=== PATIENT | female | born 1950 | race Caucasian/White ===

== ENCOUNTER 2016-09-22 14:54 | Inpatient (IN) | payer OTHER, MEDICAID, MEDICARE ==
[~2016-09-22] VITALS: Ht 165.1 cm; Wt 66.0 kg
[~2016-09-22 14:54] MED LIST: ADVA500A INH; ATEN50TA PO; BENT20TA PO; BUME1TAB PO; BUPR100T4 PO; CALTTAB PO; DIGO0.12 PO; HYDR-3366 PO; HYDR-3533 PO; LORA-373 PO; METR-1 PO; POTA-163 PO; PROT40TA PO; SPIR25TA PO; SPIRCAP INH; VENTAER INH; ZOFR4TAB PO
[2016-09-22 15:12] VITALS: BP 149/78; PULSE 68; RESP 17; TEMP 98.6; O2SAT 98
[2016-09-22 16:13] VITALS: BP 187/94; PULSE 72; RESP 18; O2SAT 100
[2016-09-22] MEDS ORDERED: ONDANSETRON HCL 4 MG/2 ML VIAL IVP ONE (16:15)
[2016-09-22] MEDS ORDERED: HYDROmorphone HCL PF 1 MG/ML VIAL IVS ONE (16:15)
--- NOTE | 2016-09-22 16:49 | PD ---
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 The patient status post cardiac procedure done at [facility] 2 days ago. The patient states that she had a device placed on the left atrium to help with clot formation from her irregular heart rate. She denies any chest pain, chest pressure. She reports worsening pain and swelling to her left groin area. There are no other complaints at the time of my examination. PFSH Past Medical History Hx Anticoagulant Therapy: Yes Anemia: Yes Arthritis: Yes (RHEUMATOID) Asthma: Yes Atrial Fibrillation: Yes Autoimmune Disease: Yes Blood Disorders: Yes Anxiety: Yes Depression: Yes Heart Rhythm Problems: Yes Cancer: Yes (OMENTUM) Cardiac Catheterization: Yes (2006) Cardiovascular Problems: Yes High Cholesterol: No Chemotherapy: Yes (05/23) Chest Pain: Yes Congestive Heart Failure: Yes COPD: Yes Cerebrovascular Accident: No Coronary Artery Disease: No Diabetes: Yes Patient Takes Glucophage: No Diminished Hearing: No Endocrine: Yes Gastrointestinal Disorders: Yes (COLITIS ULCERATIVE, HEMORRHAGIC COLITIS) GERD: Yes Glaucoma: No Genitourinary: Yes Headaches: Yes Hepatitis: Yes (HEPATITIS C) Hiatal Hernia: Yes Hypertension: Yes Immune Disorder: Yes (RA, HEP C) Implanted Vascular Access Dvce: Yes (R UPPER CHEST ) Kidney Stones: Yes Musculoskeletal: Yes Neurologic: Yes Psychiatric: Yes Reproductive: Yes (HYSTERECTOMY) Respiratory: Yes Immunizations Current: No Migraines: Yes Myocardial Infarction: No Pneumonia: Yes Radiation Therapy: No Renal Failure: Yes Seizures: No Sickle Cell Disease: No Sleep Apnea: Yes Thyroid Disease: No Ulcer: Yes PNEUMOCCOCAL Vaccine (Year): 2007 ?: Not Menopausal: Yes : 2 Para: 2 Miscarriage: 0 : 0 Dilation and Curettage (D&C): Yes Past Surgical History Abdominal Surgery: Yes ( HERNIA REPAIR) AICD: No Appendectomy: No Arteriovenous Shunt: No Body Medical Devices: RIGHT SUBCLAVIAN PORT Cardiac Surgery: Yes (WATCHMAN IMPLANTED 2016) Cholecystectomy: Yes Ear Surgery: No Endocrine Surgery: No Eye Surgery: No Genitourinary Surgery: No Gynecologic Surgery: Yes (COLPOSCOPY; CRYO SURGERY) Hysterectomy: Yes (NOVEMBER 2014) Insulin Pump: No Joint Replacement: No Neurologic Surgery: No Oral Surgery: Yes (EXTRACTIONS) Pacemaker: No Thoracic Surgery: No Other Surgery: Yes Social History Alcohol Use: No Tobacco Use: No Substance Use: No Allergies-Medications (Allergen,Severity, Reaction): Coded Allergies: Augmentin (Verified Allergy, Severe, Ulcers, 09/22/16) Cat Dander (Verified Allergy, Severe, cough, itching, 09/22/16) Taxol (Verified Allergy, Severe, Headache, 09/22/16) N/V Zithromax (Verified Allergy, Severe, Hives, 09/22/16) Reported Meds & Prescriptions Reported Meds & Active Scripts Active Lortab (Hydrocodone-Acetaminophen) 5-325 Mg Tab 1-2 Tab PO Q6H PRN Flagyl (Metronidazole) 500 Mg Tab 500 Mg PO TID 7 Days Reported Spiriva Handihaler (Tiotropium Inh) 18 Mcg Cap 18 Mcg INH DAILY 1 capsule = 18 mcg Spironolactone 25 Mg Tab 25 Mg PO BIDPC Potassium Chloride ER (Potassium Chloride) 20 Meq Tab 20 Meq PO DAILY Protonix (Pantoprazole Sodium) 40 Mg Tab 40 Mg PO DAILY Zofran (Ondansetron HCl) 4 Mg Tab 4 Mg PO Q6HR PRN Lorazepam 0.5 Mg Tab 0.5 Mg PO Q6H PRN [place] (Hydrocodone-Acetaminophen) 10-325 Mg Tab 1 Tab PO Q6H PRN Digoxin 0.125 Mg Tab 0.125 Mg PO DAILY Bentyl (Dicyclomine HCl) 20 Mg Tab 20 Mg PO TID PRN Caltrate 600+D (Calcium Carbonate-Cholecalciferol) 600-800 Mg-Unit Tab 1 Tab PO BID Bupropion HCl 100 Mg Tab 100 Mg PO BID Bumetanide 1 Mg Tab 1 Mg PO BID Atenolol 50 Mg Tab 50 Mg PO DAILY Ventolin Hfa 18 GM Inh (Albuterol Sulfate) 90 Mcg/Act Aer 2 Puff INH Q4-6H PRN Advair Diskus Inh (Fluticasone-Salmeterol Inh) 500-50 Mcg/Blist Aer 1 Puff INH BID Rinse mouth after use. Review of Systems Except as stated in HPI: all other systems reviewed are Neg General / Constitutional: No: Fever, Chills HENT: No: Headaches, Lightheadedness, Neck Pain Cardiovascular: Positive: Irregular Rhythm, No: Chest Pain or Discomfort, Palpitations Respiratory: No: Cough, Shortness of Breath Gastrointestinal: No: Nausea, Vomiting, Abdominal Pain Musculoskeletal: Positive: Pain, No: Myalgias, Arthralgias, Weakness (left groin/inguinal pain and swelling) Neurologic: No: Weakness, Dizziness, Headache Physical Exam Narrative GENERAL: Well-nourished, well-developed patient, in no acute respiratory distress. SKIN: Focused skin assessment warm/dry. HEAD: Normocephalic/atraumatic. EYES: No scleral icterus. No injection or drainage. NECK: Supple, trachea midline. CARDIOVASCULAR: Rate in the 90s without murmurs gallops or rubs. RESPIRATORY: Breath sounds equal bilaterally. No accessory muscle use. GASTROINTESTINAL: Abdomen soft, non-tender, nondistended. MUSCULOSKELETAL: Tenderness to palpation in the left inguinal area. Mild tenderness in the right inguinal area. The patient has what appears to be a palpable thrill to her left inguinal catheter site. BACK: Nontender without obvious deformity. No CVA tenderness. NEUROLOGICAL: Awake and alert. Cranial nerves II through XII intact. Motor grossly within normal limits. Five out of 5 muscle strength in all muscle groups. Normal speech. Data Data Last Documented VS Vital Signs Date Time Temp Pulse Resp B/P Pulse Ox O2 Delivery O2 Flow Rate FiO2 09/22/16 17:13 72 16 181/86 97 Room Air 09/22/16 15:12 98.6 Orders Complete Blood Count With Diff (09/22/16 16:07) Basic Metabolic Panel (Bmp) (09/22/16 16:07) Urinalysis - C+S If Indicated (09/22/16 16:07) Iv Access Insert/Monitor (09/22/16 16:07) Ecg Monitoring (09/22/16 16:07) Oximetry (09/22/16 16:07) Ondansetron Inj (Zofran Inj) (09/22/16 16:15) Hydromorphone Pf Inj (Dilaudid Pf Inj) (09/22/16 16:15) Us Leg Hematoma/Pseudoan Bilat (09/22/16 ) Invasive Rad Dept Consult (09/22/16 ) Prothrombin Time / Inr (Pt) (09/23/16 06:00) Npo After Midnight W/ Po Meds (09/23/16 Breakfast) Labs Laboratory Tests Test 09/22/16 16:30 White Blood Count 10.2 TH/MM3 Red Blood Count 3.73 MIL/MM3 Hemoglobin 11.7 GM/DL Hematocrit 35.2 % Mean Corpuscular Volume 94.3 FL Mean Corpuscular Hemoglobin 31.4 PG Mean Corpuscular Hemoglobin 33.3 % Concent Red Cell Distribution Width 16.7 % Platelet Count 129 TH/MM3 Mean Platelet Volume 8.6 FL Neutrophils (%) (Auto) 66.4 % Lymphocytes (%) (Auto) 23.9 % Monocytes (%) (Auto) 6.6 % Eosinophils (%) (Auto) 2.3 % Basophils (%) (Auto) 0.8 % Neutrophils # (Auto) 6.8 TH/MM3 Lymphocytes # (Auto) 2.4 TH/MM3 Monocytes # (Auto) 0.7 TH/MM3 Eosinophils # (Auto) 0.2 TH/MM3 Basophils # (Auto) 0.1 TH/MM3 CBC Comment AUTO DIFF Differential Total Cells 100 Counted Neutrophils % (Manual) 69 % Lymphocytes % 22 % Monocytes % 7 % Eosinophils % 1 % Basophils % 1 % Neutrophils # (Manual) 7.0 TH/MM3 Differential Comment FINAL DIFF MANUAL Platelet Estimate LOW Platelet Morphology Comment NORMAL Spherocytes 1+ Ovalocytes 2+ Urine Color LIGHT-YELLOW Urine Turbidity CLEAR Urine pH 7.0 Urine Specific [place] 1.008 Urine Protein NEG mg/dL Urine Glucose (UA) NEG mg/dL Urine Ketones NEG mg/dL Urine Occult Blood NEG Urine Nitrite NEG Urine Bilirubin NEG Urine Urobilinogen LESS THAN 2.0 MG/DL Urine Leukocyte Esterase NEG Urine RBC LESS THAN 1 /hpf Urine WBC 1 /hpf Urine Squamous Epithelial <1 /hpf Cells Urine Hyaline Casts 1 /lpf Microscopic Urinalysis Comment CULT NOT INDICATED Sodium Level 141 MEQ/L Potassium Level 3.6 MEQ/L Chloride Level 100 MEQ/L Carbon Dioxide Level 32.4 MEQ/L Anion Gap 9 MEQ/L Blood Urea Nitrogen 31 MG/DL Creatinine 1.15 MG/DL Estimat Glomerular Filtration 47 ML/MIN Rate Random Glucose 118 MG/DL Calcium Level 8.6 MG/DL [facility] Medical Decision Making Medical Screen Exam Complete: Yes Emergency Medical Condition: Yes Differential Diagnosis Pseudoaneurysm versus hematoma versus postprocedure pain versus infection Narrative Course 56-year-old female who status post interventional cardiology procedures times bilateral femoral arteries 2 days ago, presents with worsening pain of her left inguinal region. The patient had a palpable thrill on exam. Ultrasound confirmed a small pseudoaneurysm. The patient will be admitted to the medicine service with a consult with Dr. Muir for vascular. The case was discussed with Dr. Hayes, who will sign the patient out to Dr. Dennis for admission. Diagnosis Primary Impression: left inguinal femoral artery pseudoaneurysm Additional Impression: History of atrial fibrillation Admitting Information Admitting Physician Requests: Observation Griffin Roland MD September 22, 2016 16:49
[2016-09-22 16:53] LABS: BLOOD, URINE NEG (NEG); GLUCOSE,URINE NEG (NEG); HYALINE CAST, URINE 1 /lpf (RARE); KETONE, URINE NEG (NEG); NITRITE,URINE NEG (NEG); SQUAMOUS EPITHELIAL CELL URINE <1 /hpf (0-5); URINE COLOR LIGHT-YELLOW (YELLW/STRAW)
[2016-09-22 16:56] LABS: AUTOMATED NEUTROPHIL # 6.8 TH/MM3 (1.8-7.7); BASOPHIL # 0.1 TH/MM3 (0-0.2); BASOPHIL % 0.8 % (0.0-2.0); EOSINOPHIL # 0.2 TH/MM3 (0-0.4); EOSINOPHIL % 2.3 % (0.0-4.0); HEMATOCRIT 35.2 % (35.0-46.0); LYMPH % 23.9 % (9.0-44.0); LYMPHOCYTE # 2.4 TH/MM3 (1.0-4.8); MEAN CELL VOLUME 94.3 FL (80.0-100.0); MEAN CORPUSCULAR HEMOGLOBIN 31.4 PG (27.0-34.0); MEAN CORPUSCULAR HGB CONC 33.3 % (32.0-36.0); MONO % 6.6 % (0.0-8.0); NEUT % 66.4 % (16.0-70.0); PLATELET COUNT 129 TH/MM3 (150-450); RED BLOOD COUNT 3.73 MIL/MM3 (4.00-5.30); RED CELL DISTRIBUTION WIDTH 16.7 % (11.6-17.2); WHITE BLOOD COUNT 10.2 TH/MM3 (4.0-11.0)
[2016-09-22 17:02] LABS: COMMENT (UR) CULT NOT INDICATED; CULTURE IF INDICATED CULT NOT INDICATED
[2016-09-22 17:13] VITALS: BP 181/86; PULSE 72; RESP 16; O2SAT 97
[2016-09-22 17:14] LABS: HEMO FLAGS AUTO DIFF
[2016-09-22 17:49] LABS: BASOPHILS 1 % (0-2); EOSINOPHILS 1 % (0-4); POLYS (SEG NEUTROPHILS) 69 % (16-70); WBC DIFF SAMPLE 100
[2016-09-22 17:50] LABS: OVALOCYTES 2+ (NORMAL); PLATELET ESTIMATE SMEAR LOW (NORMAL); PLATELET MORPHOLOGY NORMAL (NORMAL); SCAN/DIFF FINAL DIFF MANUAL; SPHEROCYTES 1+ (NORMAL)
[2016-09-22 17:55] LABS: BICARBONATE 32.4 MEQ/L (21.0-32.0); POTASSIUM 3.6 MEQ/L (3.5-5.1)
--- NOTE | 2016-09-22 18:31 | RADRPT ---
EXAM DATE/TIME: 09/22/2016 17:31 [place] COMPARISON: No previous studies available for comparison. INDICATIONS : Pseudoaneurysm. MEDICAL HISTORY : Osteoporosis. Rheumatoid arthritis. Congestive heart failure. Cataracts. Migraines. Numbness. Chest p ain. Afib. HTN. COPD. Dyspnea. Pneumonia. Sleep apnea. Dyspnea. Colitis ulcerative. Hemorrhagic colit is. GERD. Inflammatory bowel disease. Hiatal hernia. Renal disease and failure. Renal calculi. UTI. D iabetes. Hep C. Anemia. Thrombocytopenia. Uterine and ovarian cancer. Omentum. Anticoagulant therapy. PTSD. SURGICAL HISTORY : Hysterectomy. Appendectomy. Cholecystectomy. Watchman implanted. Cardiac cath. Hernia repair. Colpos copy. Cryo surgery. Left knee. D&C. Right upper chest. Blood transfusions. Chemotherapy. ENCOUNTER: Initial ACUITY: 1 day PAIN SCORE: 10/10 LOCATION: Bilateral leg. AREA EVALUATED: Bilateral groin. FINDINGS: There is pseudoaneurysm left groin measure approximately 2 cm. There is no pseudoaneurysm on the rig ht. There is the small neck. CONCLUSION: Small left pseudoaneurysm. Ender Heaton MD FACR on September 22, 2016 at 18:27 Board Certified Radiologist. This report was verified electronically.
--- NOTE | 2016-09-22 19:09 | PD.CAR.PN ---
CVT Progress Note Subjective/Hospital Course: 66 year old female with a small pseudoaneurysm of the left groin as a result of a transfemoral ablation 2 days ago Patient is a good candidate for thrombin obliteration of the pseudoaneurysm and have spoken to Dr. Nitin Heaton interventional radiology We will proceed with the same tomorrow morning Patient should be off anticoagulants Objective: Vital Signs Date Time Temp Pulse Resp B/P Pulse Ox O2 Delivery O2 Flow Rate FiO2 09/22/16 17:13 72 16 181/86 97 Room Air 09/22/16 16:13 72 18 187/94 100 09/22/16 15:12 98.6 68 17 149/78 98 Room Air Labs: Laboratory Tests Test 09/22/16 16:30 White Blood Count 10.2 TH/MM3 (4.0-11.0) Red Blood Count 3.73 MIL/MM3 (4.00-5.30) Hemoglobin 11.7 GM/DL (11.6-15.3) Hematocrit 35.2 % (35.0-46.0) Mean Corpuscular Volume 94.3 FL (80.0-100.0) Mean Corpuscular Hemoglobin 31.4 PG (27.0-34.0) Mean Corpuscular Hemoglobin 33.3 % Concent (32.0-36.0) Red Cell Distribution Width 16.7 % (11.6-17.2) Platelet Count 129 TH/MM3 (150-450) Mean Platelet Volume 8.6 FL (7.0-11.0) Neutrophils (%) (Auto) 66.4 % (16.0-70.0) Lymphocytes (%) (Auto) 23.9 % (9.0-44.0) Monocytes (%) (Auto) 6.6 % (0.0-8.0) Eosinophils (%) (Auto) 2.3 % (0.0-4.0) Basophils (%) (Auto) 0.8 % (0.0-2.0) Neutrophils # (Auto) 6.8 TH/MM3 (1.8-7.7) Lymphocytes # (Auto) 2.4 TH/MM3 (1.0-4.8) Monocytes # (Auto) 0.7 TH/MM3 (0-0.9) Eosinophils # (Auto) 0.2 TH/MM3 (0-0.4) Basophils # (Auto) 0.1 TH/MM3 (0-0.2) CBC Comment AUTO DIFF Differential Total Cells 100 Counted Neutrophils % (Manual) 69 % (16-70) Lymphocytes % 22 % (9-44) Monocytes % 7 % (0-8) Eosinophils % 1 % (0-4) Basophils % 1 % (0-2) Neutrophils # (Manual) 7.0 TH/MM3 (1.8-7.7) Differential Comment FINAL DIFF MANUAL Platelet Estimate LOW (NORMAL) Platelet Morphology Comment NORMAL (NORMAL) Spherocytes 1+ (NORMAL) Ovalocytes 2+ (NORMAL) Urine Color LIGHT-YELLOW (YELLW/STRAW) Urine Turbidity CLEAR (CLEAR) Urine pH 7.0 (5.0-8.5) Urine Specific [place] 1.008 (1.002-1.035) Urine Protein NEG mg/dL (NEG-TRACE) Urine Glucose (UA) NEG mg/dL (NEG) Urine Ketones NEG mg/dL (NEG) Urine Occult Blood NEG (NEG) Urine Nitrite NEG (NEG) Urine Bilirubin NEG (NEG) Urine Urobilinogen LESS THAN 2.0 MG/DL (LESS THAN 2.0) Urine Leukocyte Esterase NEG (NEG) Urine RBC LESS THAN 1 /hpf (0-3) Urine WBC 1 /hpf (0-5) Urine Squamous Epithelial <1 /hpf (0-5) Cells Urine Hyaline Casts 1 /lpf (RARE) Microscopic Urinalysis Comment CULT NOT INDICATED Sodium Level 141 MEQ/L (136-145) Potassium Level 3.6 MEQ/L (3.5-5.1) Chloride Level 100 MEQ/L (98-107) Carbon Dioxide Level 32.4 MEQ/L (21.0-32.0) Anion Gap 9 MEQ/L (5-15) Blood Urea Nitrogen 31 MG/DL (7-18) Creatinine 1.15 MG/DL (0.50-1.00) Estimat Glomerular Filtration 47 ML/MIN (>89) Rate Random Glucose 118 MG/DL (74-106) Calcium Level 8.6 MG/DL (8.5-10.1) Result Diagram: 09/22/16 1630 09/22/16 1630 Selwyn Muir MD September 22, 2016 19:09
[2016-09-22 19:15] VITALS: BP 150/67; PULSE 64; RESP 16; O2SAT 99
[2016-09-22] MEDS ORDERED: GLUCAGON 1 MG/ML VIAL OTHER PRN (19:30)
[2016-09-22] MEDS ORDERED: DEXTROSE 50% IN WATER 50 ML VIAL(D50) IV PRN (19:30)
[2016-09-22] MEDS ORDERED: NALOXONE HCL 0.4 MG/ML AMP IV PRN (19:30)
[2016-09-22] MEDS ORDERED: ACETAMINOPHEN 325 MG TAB PO PRN (19:30)
[2016-09-22] MEDS ORDERED: MORPHINE SULFATE 4 MG/ML INJ IV PRN (20:15)
[2016-09-22] MEDS: ONDANSETRON HCL 4 MG/2 ML VIAL IVP PRN ×2 (20:44→23:35)
[2016-09-22] MEDS: SODIUM CHLORIDE 0.9% FLUSH 10 ML FLUSH IV FLUSH PRN (20:44)
[2016-09-22 20:45] VITALS: BP 157/72; PULSE 69; RESP 16; O2SAT 99
[2016-09-22] MEDS: INSULIN ASPART SUPPLEMENTAL SCALE SQ SCH (21:00)
[2016-09-22] MEDS ORDERED: PANTOPRAZOLE SOD 40 MG DELAYED RELEASE TAB PO SCH (21:00)
--- NOTE | 2016-09-22 21:18 | MB ---
cc: SELWYN HO MD DATE OF CONSULTATION 09/22/16 REASON FOR CONSULTATION Pseudoaneurysm of the left femoral artery HISTORY OF PRESENT ILLNESS This is a 66-year-old female with a history of A, fib who underwent day before yesterday transfemoral cardiac ablation at another institution and the patient was told if she has any complications to come here. The patient noted that she was doing well this morning then suddenly something popped in the left groin and she got swelling, pain and from there it went. The patient is now in the emergency room. PAST MEDICAL HISTORY 1. stage IV ovarian cancer with previous intra-abdominal bleeding 2. Rheumatoid arthritis 3. Asthma, 4. Chronic atrial fibrillation 5. Some sort of a coagulation disorder. 6. Ulcerative colitis, 7. Hepatitis C PAST SURGICAL HISTORY 1. Hysterectomy bilateral salpingo-oophorectomy, 2. Debulking of the abdomen 3. Above-noted cardiac ablation 4. Hernia repair 5. Watchman implantation 6. Repeated colonoscopies SOCIAL HISTORY The patient does not smoke, drink. MEDICATIONS Can be found on the record and the patient currently is not on anticoagulants. Apparently, she did not take Coumadin for the last two days. PHYSICAL EXAMINATION GENERAL: A pleasant 66-year-old lady in no acute distress. HEENT: Normocephalic. No trauma to head. Pupils equally reactive. Extraocular muscles intact. NECK: Supple, bilateral carotid pulses. HEART: Actually the patient seems to be in sinus rhythm of about 90 LUNGS: Bilateral breath sounds. ABDOMEN: Soft. Active bowel sounds. Previous scars from previous surgery. Just by examination, I would not be able to tell if the patient has omental metastasis. Groins are normal. EXTREMITIES: The patient has actually bilateral femoral, popliteal, dorsalis pedis, posterior tibial pulses to palpation. She has normal capillary refill bilateral. She has some bruising on both groins from previous femoral sticks on the left side. She has actually palpable small lesion in the groin consistent with a pseudoaneurysm which is pulsatile measuring about 2.5 cm at best. NEUROLOGIC: She is intact. IMPRESSION/RECOMMENDATIONS Patient with a small aneurysm of the left groin due to probably breaking of the Perclose or the Angio-Seal stitch. At this point, the patient does not need any surgery. I have discussed this with Dr. Nitin Heaton. We will go tomorrow and do thrombin obliteration of the pseudoaneurysm. Thank you much for referral. Critical care 40 minutes. Selwyn SCHUMACHER/ /7:15 PM /8:59 PM
[2016-09-22] MEDS: SODIUM CHLORIDE 0.9% FLUSH 10 ML FLUSH IV FLUSH SCH (21:46)
[2016-09-22 22:03] VITALS: BP 139/109; PULSE 65; RESP 19; TEMP 98.2; O2SAT 96
[2016-09-22] MEDS ORDERED: RESP: ALBUTEROL 2.5 MG/IPRATROPIUM 0.5 MG NEB (PRN) NEB (23:15)
--- NOTE | 2016-09-22 23:15 | HHI.HP ---
[facility] Service [facility] Primary Care Physician Darius Reynoso MD Admission Diagnosis left inguinal femoral artery pseudoaneurysm Diagnoses: Chief Complaint: pain in groin Travel History International Travel<30 Days: No Contact w/Intl Traveler <30 Da: No Traveled to Known Affected Are: No History of Present Illness History from patient, ER physician communication, and review of medical records. Patient reported that she had a device placed in her atrium for management of her atrial fibrillation by Dr. Rowell on Monday and [facility]. She stated she was doing well after that for the next 1 day or so. However starting yesterday, she started having severe pain in her left groin area which limits her from walking at all. She therefore came to hospital. Further workup in emergency room reveals large pseudoaneurysm. Apart from the pain in the groin area, patient denies any recent fever/nausea/ vomiting/diarrhea/urinary burning or pain on urination. She denies any hematemesis/hematochezia/melena/hematuria. Patient reports that she has been on Coumadin for past 45 days prior to the procedure. She stated that the plan was for her to have JESUS post procedure and if there was no clots, she was supposed to be switched to Plavix and aspirin. In essentially, she stated that she would be switched to aspirin alone therapy. She reports this procedure was done because she was having trouble with anticoagulation due to her history of GI bleeds. Review of Systems Except as stated in HPI: all other systems reviewed are Neg Past Family Social History Past Medical History Hypertension dm- diet controlled congestive heart failure - on bumex and aldactone copd asthma hepatitis C - planned for treatment in a few months ckd fallopian tube cancer- may last chemo Anemia Chronic GI bleeds Ulcerative colitis Past Surgical History 04/01/2014- hernia sx fallopian tube - complete total hysterectomy left knee arthroscopic meniscus sx 1989 cholecystectomy 1977 cryoablation colposcopy d+C monday- watchman device insertion Reported Medications Patient's medications listed on EMRreviewed Allergies: Coded Allergies: Augmentin (Verified Allergy, Severe, Ulcers, 09/22/16) Cat Dander (Verified Allergy, Severe, cough, itching, 09/22/16) Mesalamine (Verified Allergy, Severe, Hives, 09/22/16) Taxol (Verified Allergy, Severe, Headache, 09/22/16) N/V Zithromax (Verified Allergy, Severe, Hives, 09/22/16) Family History heart dx from father side RA in mom and sister dm in mom Social History no drinking. no drugs smoking as teenager for short time lives by self Physical Exam Vital Signs Vital Signs Date Time Temp Pulse Resp B/P Pulse Ox O2 Delivery O2 Flow Rate FiO2 09/22/16 22:03 98.2 65 19 139/109 96 09/22/16 20:45 69 16 157/72 99 Room Air 09/22/16 19:17 64 17 09/22/16 19:15 64 16 150/67 99 Room Air 09/22/16 17:13 72 16 181/86 97 Room Air 09/22/16 16:13 72 18 187/94 100 09/22/16 15:12 98.6 68 17 149/78 98 Room Air Physical Exam GENERAL: This is a well-nourished, well-developed patient, in no apparent distress. SKIN: No rashes, ecchymoses or lesions. Cool and dry. HEAD: Atraumatic. Normocephalic. No temporal or scalp tenderness. EYES: No scleral icterus. No injection or drainage. ENT: Nose without bleeding, purulent drainage or septal hematoma.. Airway patent. NECK: Trachea midline. No JVD CARDIOVASCULAR: Regular rate and rhythm without murmurs, gallops, or rubs. RESPIRATORY: Clear to auscultation. Breath sounds equal bilaterally. No wheezes , rales, or rhonchi. GASTROINTESTINAL: Abdomen soft, non-tender, nondistended. No guarding. MUSCULOSKELETAL: Extremities without clubbing, cyanosis, or edema. No calf tenderness. Left groin area with significant pain and swelling. Difficulty moving bilateral lower extremity due to pain. Dorsalis pedis pulses present bilaterally although somewhat weaker on the left side. NEUROLOGICAL: Awake and alert. Motor and sensory grossly within normal limits given pain. Normal speech. Laboratory Laboratory Tests Test 09/22/16 16:30 White Blood Count 10.2 Red Blood Count 3.73 Hemoglobin 11.7 Hematocrit 35.2 Mean Corpuscular Volume 94.3 Mean Corpuscular Hemoglobin 31.4 Mean Corpuscular Hemoglobin 33.3 Concent Red Cell Distribution Width 16.7 Platelet Count 129 Mean Platelet Volume 8.6 Neutrophils (%) (Auto) 66.4 Lymphocytes (%) (Auto) 23.9 Monocytes (%) (Auto) 6.6 Eosinophils (%) (Auto) 2.3 Basophils (%) (Auto) 0.8 Neutrophils # (Auto) 6.8 Lymphocytes # (Auto) 2.4 Monocytes # (Auto) 0.7 Eosinophils # (Auto) 0.2 Basophils # (Auto) 0.1 CBC Comment AUTO DIFF Differential Total Cells 100 Counted Neutrophils % (Manual) 69 Lymphocytes % 22 Monocytes % 7 Eosinophils % 1 Basophils % 1 Neutrophils # (Manual) 7.0 Differential Comment FINAL DIFF MANUAL Platelet Estimate LOW Platelet Morphology Comment NORMAL Spherocytes 1+ Ovalocytes 2+ Urine Color LIGHT-YELLOW Urine Turbidity CLEAR Urine pH 7.0 Urine Specific [place] 1.008 Urine Protein NEG Urine Glucose (UA) NEG Urine Ketones NEG Urine Occult Blood NEG Urine Nitrite NEG Urine Bilirubin NEG Urine Urobilinogen LESS THAN 2.0 Urine Leukocyte Esterase NEG Urine RBC LESS THAN 1 Urine WBC 1 Urine Squamous Epithelial <1 Cells Urine Hyaline Casts 1 Microscopic Urinalysis Comment CULT NOT INDICATED Sodium Level 141 Potassium Level 3.6 Chloride Level 100 Carbon Dioxide Level 32.4 Anion Gap 9 Blood Urea Nitrogen 31 Creatinine 1.15 Estimat Glomerular Filtration 47 Rate Random Glucose 118 Calcium Level 8.6 Result Diagram: 09/22/16 1630 09/22/16 1630 Imaging Last 48 hours Impressions Lower Extremity Ultrasound 09/22/16 0000 Signed Impressions: Service Date/Time: September 17:31 - CONCLUSION: Small left pseudoaneurysm. Ender Heaton MD FACR Assessment and Plan Assessment and Plan Impression: Small left pseudoaneurysm of the groinstatus post cardiac procedure by Dr. Rowell at [facility] Hypertension dm- diet controlled congestive heart failure - on bumex and aldactone copd asthma hepatitis C - planned for treatment in a few months ckd fallopian tube cancer- may last chemo Anemia Chronic GI bleeds Ulcerative colitis Plan: Patient was evaluated by vascular surgeon in ER. Advised for thrombin obliteration of pseudoaneurysm by interventional radiology. Planned for a.m. Nothing by mouth. Pain control. D5 normal saline at 42 cc per hour. Resume home medications. DVT prophylaxisto be on coumadin per pt's report willcheck INR and adjus comadion Discussed Condition With Patient, ER physician, patient's nurse Physician Certification 2 Midnight Certification Type: Admission for Inpatient Services Order for Inpatient Services The services are ordered in accordance with Medicare regulations or non- Medicare payer requirements, as applicable. In the case of services not specified as inpatient-only, they are appropriately provided as inpatient services in accordance with the 2-midnight benchmark. Estimated LOS (days): 2 days is the estimated time the patient will need to remain in the hospital, assuming treatment plan goals are met and no additional complications. Post-Hospital Plan: Home Jose Hills MD September 22, 2016 23:15
[2016-09-22] MEDS: HYDROmorphone HCL PF 1 MG/ML VIAL IV PUSH PRN (23:28)
[2016-09-23] VITALS (7 sets, daily range): BP systolic 105–168; BP diastolic 51–89; PULSE 61–67; RESP 18–22; TEMP 97.3–100.7; O2SAT 97–100
[2016-09-23] MEDS ORDERED: TRIAM.1%T TOPICAL (00:02)
[2016-09-23] MEDS ORDERED: SOMA350T PO (00:05)
[2016-09-23] MEDS: HYDROmorphone HCL PF 1 MG/ML VIAL IV PUSH PRN ×5 (02:15→20:14)
[2016-09-23] MEDS: INSULIN ASPART SUPPLEMENTAL SCALE SQ SCH ×4 (05:39→21:00)
[2016-09-23 07:29] LABS: AUTOMATED NEUTROPHIL # 8.1 TH/MM3 (1.8-7.7); BASOPHIL % 0.4 % (0.0-2.0); EOSINOPHIL # 0.3 TH/MM3 (0-0.4); EOSINOPHIL % 2.7 % (0.0-4.0); HEMATOCRIT 34.1 % (35.0-46.0); HEMO FLAGS DIFF FINAL; LYMPH % 23.2 % (9.0-44.0); LYMPHOCYTE # 2.8 TH/MM3 (1.0-4.8); MEAN CELL VOLUME 94.6 FL (80.0-100.0); MEAN CORPUSCULAR HEMOGLOBIN 30.5 PG (27.0-34.0); MEAN CORPUSCULAR HGB CONC 32.2 % (32.0-36.0); MONO % 7.3 % (0.0-8.0); NEUT % 66.4 % (16.0-70.0); PLATELET COUNT 128 TH/MM3 (150-450); RED CELL DISTRIBUTION WIDTH 16.7 % (11.6-17.2); WHITE BLOOD COUNT 12.2 TH/MM3 (4.0-11.0)
[2016-09-23 07:37] LABS: INTERNATIONAL NORMALIZED RATIO 1.9 RATIO; PROTHROMBIN TIME - PATIENT 21.4 SEC (9.8-11.6)
[2016-09-23] MEDS ORDERED: ACETAMINOPHEN/HYDROcodone 325 MG/10 MG TAB PO PRN (07:45)
[2016-09-23 07:57] LABS: ALKALINE PHOSPHATASE 118 U/L (45-117); ALT (GPT) 51 U/L (10-53); ANION GAP 9 MEQ/L (5-15); AST (GOT) 54 U/L (15-37); BICARBONATE 30.2 MEQ/L (21.0-32.0); BLOOD UREA NITROGEN 30 MG/DL (7-18); CHLORIDE 102 MEQ/L (98-107); GLOMERULAR FILTRATION RATE 49 ML/MIN (>89); POTASSIUM 3.9 MEQ/L (3.5-5.1); SODIUM (NA) 141 MEQ/L (136-145); TOTAL BILIRUBIN ADULT 0.5 MG/DL (0.2-1.0)
[2016-09-23] MEDS: RESP: ALBUTEROL 2.5 MG/IPRATROPIUM 0.5 MG NEB (PRN) NEB (08:15)
--- NOTE | 2016-09-23 08:29 | HHI.PR ---
Subjective Remarks Follow up pseudoaneurysm. Patient reports significant pain in the left groin. No improvement overnight. Pain radiates down left leg. Denies chest pain, dyspnea. Objective Vitals Vital Signs Date Time Temp Pulse Resp B/P Pulse Ox O2 Delivery O2 Flow Rate FiO2 09/23/16 07:39 97.3 66 22 168/89 100 09/23/16 05:18 26 09/23/16 03:35 98.0 65 19 128/64 97 09/23/16 01:53 61 09/22/16 22:03 98.2 65 19 139/109 96 09/22/16 20:45 69 16 157/72 99 Room Air 09/22/16 19:17 64 17 09/22/16 19:15 64 16 150/67 99 Room Air 09/22/16 17:13 72 16 181/86 97 Room Air 09/22/16 16:13 72 18 187/94 100 09/22/16 15:12 98.6 68 17 149/78 98 Room Air Result Diagram: 09/23/16 0636 09/23/16 0636 Imaging Last Impressions Lower Extremity Ultrasound 09/22/16 0000 Signed Impressions: Service Date/Time: September 17:31 - CONCLUSION: Small left pseudoaneurysm. Ender Heaton MD FACR Objective Remarks General: No acute distress. Heart: Regular rate and rhythm. No murmur. Lungs: Clear to auscultation bilaterally. No wheezes, rales, or rhonchi. Breathing is nonlabored. Abdomen: Soft, nontender, nondistended. Extremities: No lower extremity edema. Left lower extremity with varicose veins. Left upper leg with swelling and tenderness. Psych: Alert and oriented. Urinary Catheter: No Vascular Central Line Catheter: No A/P Problem List: (1) Pseudoaneurysm following procedure ICD Code: I99.8 Status: Acute (2) DM (diabetes mellitus) ICD Code: E11.9 Status: Chronic (3) GERD (gastroesophageal reflux disease) ICD Code: K21.9 Status: Chronic (4) A-fib ICD Code: I48.91 Status: Chronic (5) HTN (hypertension) ICD Code: I10 Status: Chronic (6) CKD (chronic kidney disease) stage 3, GFR 30-59 ml/min ICD Code: N18.3 Status: Chronic Assessment and Plan 1. Left groin pseudoaneurysm following cardiac procedure: Continuing to have significant pain. Appreciate vascular surgery recommendations. Interventional radiology consulted for possible procedure. 2. Hypertension: Blood pressure is somewhat elevated, likely secondary to pain. 3. Diabetes mellitus: Diet controlled. Monitor Accu-Cheks and cover with sliding scale insulin. 4. COPD, asthma: Oxygen, bronchodilators as needed. 5. History of hepatitis C: Outpatient follow-up. 6. Chronic kidney disease stage III: Stable. Monitor BUN, Creatinine. 7. History of atrial fibrillation: Coumadin on hold per vascular surgery recommendations. Consult patient's instrument specialist. Problem Qualifiers (1) DM (diabetes mellitus): David Hayes MD September 23, 2016 08:29
[2016-09-23] MEDS ORDERED: ONDANSETRON ODT 4 MG TAB PO PRN (08:30)
[2016-09-23] MEDS: PANTOPRAZOLE SOD 40 MG DELAYED RELEASE TAB PO SCH (08:36)
[2016-09-23] MEDS: CALCIUM/VITAMIN D 250 MG/125 U TAB PO SCH ×2 (08:36→23:08)
[2016-09-23] MEDS: ATENOLOL 50 MG TAB PO SCH (08:37)
[2016-09-23] MEDS: BUMETANIDE 1 MG TAB PO SCH ×2 (08:37→23:08)
[2016-09-23] MEDS: DIGOXIN 0.125 MG TAB PO SCH (08:37)
[2016-09-23] MEDS: ONDANSETRON HCL 4 MG/2 ML VIAL IVP PRN (08:38)
[2016-09-23] MEDS: buPROPion HCL 100 MG TAB PO SCH (08:40)
[2016-09-23] MEDS: DEXT 5%-NACL 0.9% 1000 ML INJ 1,000 ML IV SCH (08:41)
[2016-09-23] MEDS: SODIUM CHLORIDE 0.9% FLUSH 10 ML FLUSH IV FLUSH SCH ×2 (08:41→23:15)
[2016-09-23] MEDS: SPIRONOLACTONE 25 MG TAB PO SCH ×2 (10:00→18:43)
[2016-09-23] MEDS: POTASSIUM CHLORIDE 20 MEQ CONTROLLED RELEASE TAB PO SCH (10:00)
[2016-09-23] MEDS: TIOTROPIUM BROMIDE 18 MCG INH INH SCH (10:01)
[2016-09-23] MEDS: TRIAMCINOLONE ACETONIDE 0.1% OINT 15 GM TUBE TOPICAL SCH ×2 (10:02→21:00)
[2016-09-23] MEDS ORDERED: HYDROmorphone HCL PF 2 MG/ML VIAL ONE (11:35)
[2016-09-23] MEDS ORDERED: THROMBIN (TOPICAL) 5,000 UNIT VIAL ONE (11:35)
--- NOTE | 2016-09-23 12:02 | PD.RAD ---
Post Procedure Progress Note Pre Procedure Diagnosis: (1) Pseudoaneurysm following procedure Post Procedure Diagnosis: (1) Pseudoaneurysm following procedure Procedure Date: September 23, 2016 Supervising Radiologist: Coy Heaton Plan of Activity Patient to Unit: Nursing Unit Patient Condition: Good Additional Comments: Left groin evaluated with ultrasound. approximately 5x6cm hematoma in the left groin. No flow identified with color flow or doppler. Pseudoaneurysm has occluded since Coumadin was DCed. No procedure preformed See PACS Report for procedural detail/treatment Coy Heaton MD September 23, 2016 12:02
--- NOTE | 2016-09-23 13:27 | PD.CAR.PN ---
CVT Progress Note Subjective/Hospital Course: 66 year old female with a small pseudoaneurysm of the left groin as a result of a transfemoral ablation 2 days ago Patient is a good candidate for thrombin obliteration of the pseudoaneurysm and have spoken to Dr. Nitin Heaton interventional radiology We will proceed with the same tomorrow morning Patient should be off anticoagulants 09/23/16 Patient underwent today vascular ultrasound and was initially planned to undergo thrombin ablation of the pseudoaneurysm. The ultrasound reveals pseudo-aneurysm to be clotted off completely and therefore there is no need for additional thrombin injection. Patient can be placed back on anticoagulants and discharged as per medicine Recommend warm compresses to the groin for there is a 3 cm hematoma here surrounding the area but this is going to go away on its own No further local therapy is needed Objective: Vital Signs Date Time Temp Pulse Resp B/P Pulse Ox O2 Delivery O2 Flow Rate FiO2 09/23/16 12:10 98.3 63 20 131/60 98 09/23/16 08:18 99 Nasal Cannula 1.50 09/23/16 07:39 97.3 66 22 168/89 100 09/23/16 05:18 26 09/23/16 03:35 98.0 65 19 128/64 97 09/23/16 01:53 61 09/22/16 22:03 98.2 65 19 139/109 96 09/22/16 20:45 69 16 157/72 99 Room Air 09/22/16 19:17 64 17 09/22/16 19:15 64 16 150/67 99 Room Air 09/22/16 17:13 72 16 181/86 97 Room Air 09/22/16 16:13 72 18 187/94 100 09/22/16 15:12 98.6 68 17 149/78 98 Room Air Labs: Laboratory Tests Test 09/23/16 06:36 White Blood Count 12.2 TH/MM3 (4.0-11.0) Red Blood Count 3.60 MIL/MM3 (4.00-5.30) Hemoglobin 11.0 GM/DL (11.6-15.3) Hematocrit 34.1 % (35.0-46.0) Mean Corpuscular Volume 94.6 FL (80.0-100.0) Mean Corpuscular Hemoglobin 30.5 PG (27.0-34.0) Mean Corpuscular Hemoglobin 32.2 % Concent (32.0-36.0) Red Cell Distribution Width 16.7 % (11.6-17.2) Platelet Count 128 TH/MM3 (150-450) Mean Platelet Volume 8.2 FL (7.0-11.0) Neutrophils (%) (Auto) 66.4 % (16.0-70.0) Lymphocytes (%) (Auto) 23.2 % (9.0-44.0) Monocytes (%) (Auto) 7.3 % (0.0-8.0) Eosinophils (%) (Auto) 2.7 % (0.0-4.0) Basophils (%) (Auto) 0.4 % (0.0-2.0) Neutrophils # (Auto) 8.1 TH/MM3 (1.8-7.7) Lymphocytes # (Auto) 2.8 TH/MM3 (1.0-4.8) Monocytes # (Auto) 0.9 TH/MM3 (0-0.9) Eosinophils # (Auto) 0.3 TH/MM3 (0-0.4) Basophils # (Auto) 0.0 TH/MM3 (0-0.2) CBC Comment DIFF FINAL Differential Comment Prothrombin Time 21.4 SEC (9.8-11.6) Prothromb Time International 1.9 RATIO Ratio Sodium Level 141 MEQ/L (136-145) Potassium Level 3.9 MEQ/L (3.5-5.1) Chloride Level 102 MEQ/L (98-107) Carbon Dioxide Level 30.2 MEQ/L (21.0-32.0) Anion Gap 9 MEQ/L (5-15) Blood Urea Nitrogen 30 MG/DL (7-18) Creatinine 1.11 MG/DL (0.50-1.00) Estimat Glomerular Filtration 49 ML/MIN (>89) Rate Random Glucose 117 MG/DL (74-106) Calcium Level 8.6 MG/DL (8.5-10.1) Total Bilirubin 0.5 MG/DL (0.2-1.0) Aspartate Amino Transf 54 U/L (15-37) (AST/SGOT) Alanine Aminotransferase 51 U/L (10-53) (ALT/SGPT) Alkaline Phosphatase 118 U/L (45-117) Total Protein 6.4 GM/DL (6.4-8.2) Albumin 2.6 GM/DL (3.4-5.0) Result Diagram: 09/23/16 0636 09/23/16 0636 Selwyn Muir MD September 23, 2016 13:27
--- NOTE | 2016-09-23 15:04 | RADRPT ---
EXAM DATE/TIME: 09/23/2016 11:36 [facility] COMPARISON : No previous studies available for comparison. INDICATIONS : Patient with pseudoaneurysm in left groin in need of evaluation. OBJECTIVE: Temperature: Heart Rate: Blood Pressure: / Respiratory: Oximetry: PNEUMONIA VACCINE: HISTORY OF PRESENT ILLNESS: The patient underwent catheterization with ablation approximately 24 hours prior to presenting with a left groin pseudoaneurysm. PAST MEDICAL HISTORY : 1. Hypertension. 2. Diabetes mellitus 2. 3. Renal failure, chronic. 4. Congestive heart failure. 5. Chronic obstructive pulmonary disease. 6. Atrial fibrillation 7. Uterine/Ovarian cancer 8. Hepatitis C. PAST SURGICAL HISTORY : 1. Hysterectomy. 2. Appendectomy 3. Cholecystectomy. 4. Watchman device implanted Colposcopy Cryo surgery ALLERGIES: 1. Augmentin 2. Mesalamine 3. Taxol 4. Zithromax Exam: The patient has a palpable mass in the left groin. Left: Femoral: Popliteal: Post tib: Doppl er Dorsalis Ped: 2+ IMAGING STUDIES: The patient was examined prior to treatment of the pseudoaneurysm. There is been complete thrombosis of the pseudoaneurysm. There is now a 5.5 x 5.4 cm hematoma evident within the left groin. This was e valuated with both Doppler and color flow imaging. There is no evidence of flow within this. ASSESSMENT: The patient pseudoaneurysm occluded once or Coumadin was discontinued. Coy Heaton MD on September 23, 2016 at 15:00 Board Certified Radiologist. This report was verified electronically.
--- NOTE | 2016-09-23 16:02 | MB ---
cc: CARLOS EDUARDO ROWELL M.D. DATE OF CONSULTATION: 09/23/2016. REASON FOR CONSULTATION: A pseudoaneurysm status post atrial fibrillation ablation. HISTORY OF PRESENT ILLNESS: Mrs. Nichole is a 66-year-old female with history of atrial fibrillation. She had a left atrial appendage closure device inserted and developed a pseudoaneurysm post the procedure. She went to the emergency room for evaluation. The chart was reviewed. The patient was evaluated. ALLERGIES: 1. AUGMENTIN. 2. TAXOL. 3. ZITHROMAX. SOCIAL HISTORY: Negative for smoking and drinking. FAMILY HISTORY: Noncontributory to her current medical condition. MEDICATIONS: Currently She is on: 1. Atenolol. 2. Bumex. 3. Digoxin. 4. Aldactone. 5. Coumadin. REVIEW OF SYSTEMS: The patient refers no chest pain. No chest discomfort. Left inguinal pain. PHYSICAL EXAMINATION: GENERAL: Alert, fully oriented. VITAL SIGNS: Blood pressure 131/60, pulse 63, respiratory rate 18. LUNGS: Ventilated. CARDIOVASCULAR: S1 and S2. No gallop. No murmur. ABDOMEN: Abdomen soft, no mass. No bruits. EXTREMITIES: Some pain in the left leg. CARDIOLOGY STUDIES: Telemetry shows sinus rhythm. LABS: Hemoglobin 11, white blood cell count 12.0. Potassium 3.9, creatinine 1.1. INR 1.9. ASSESSMENT AND RECOMMENDATIONS: Mrs. Nichole has a less than 2 cm pseudoaneurysm. I discussed the case over the phone with Dr. Lujan, interventional radiologist. There is no need for intervention. The patient is going to be observed. Repeat left inguinal ultrasound in a week. The case was discussed with the patient. The patient can be discharged whenever it is okay with and the management team. Carlos Eduardo Rowell MD /ISAEL /3:09 PM /3:50 PM
[2016-09-23] MEDS: WARFARIN SOD 5 MG TAB PO SCH (17:34)
[2016-09-23] MEDS ORDERED: NITROGLYCERIN 0.4 MG SL 25 TABS/BTL SL PRN (19:45)
[2016-09-23] MEDS ORDERED: VANCOMYCIN INJ 1,000 MG in SODIUM CHLOR 0.9% 250 ML INJ 250 ML IV ONE (20:15)
--- NOTE | 2016-09-23 20:19 | RADRPT ---
EXAM DATE/TIME: 09/23/2016 20:08 [facility] COMPARISON: CHEST SINGLE AP, January 19, 2016, 14:09. INDICATIONS : Chest pain starting today MEDICAL HISTORY : None. SURGICAL HISTORY : None. ENCOUNTER: Initial ACUITY: 1 day PAIN SCORE: 7/10 LOCATION: Bilateral chest FINDINGS: A single view of the chest demonstrates the lungs to be symmetrically aerated without evidence of mas s, infiltrate or effusion. The cardiomediastinal contours are unremarkable. Osseous structures are intact. A right subclavian [id number] catheter are again noted, tip in superior vena cava. CONCLUSION: No evidence of acute cardiopulmonary disease or significant change. Dmitry Gallo MD on September 23, 2016 at 20:17 Board Certified Radiologist. This report was verified electronically.
[2016-09-23 21:04] LABS: AUTOMATED NEUTROPHIL # 9.2 TH/MM3 (1.8-7.7); BASOPHIL % 0.3 % (0.0-2.0); EOSINOPHIL # 0.2 TH/MM3 (0-0.4); EOSINOPHIL % 1.9 % (0.0-4.0); HEMATOCRIT 32.5 % (35.0-46.0); HEMO FLAGS DIFF FINAL; LYMPH % 16.4 % (9.0-44.0); MEAN CELL VOLUME 93.2 FL (80.0-100.0); MEAN CORPUSCULAR HGB CONC 33.2 % (32.0-36.0); MONO % 8.2 % (0.0-8.0); NEUT % 73.2 % (16.0-70.0); PLATELET COUNT 141 TH/MM3 (150-450); RED BLOOD COUNT 3.48 MIL/MM3 (4.00-5.30); RED CELL DISTRIBUTION WIDTH 16.1 % (11.6-17.2); WHITE BLOOD COUNT 12.5 TH/MM3 (4.0-11.0)
[2016-09-23 21:42] LABS: CKMB 1.5 NG/ML (0.5-3.6)
[2016-09-23] MEDS: LORazepam 0.5 MG TAB PO PRN (23:07)
[2016-09-24] VITALS: BP 146/69; PULSE 67; RESP 20; TEMP 100.3; O2SAT 99
[2016-09-24] MEDS: buPROPion HCL 100 MG TAB PO SCH ×3 (00:52→20:15)
[2016-09-24] MEDS: HYDROmorphone HCL PF 1 MG/ML VIAL IV PUSH PRN ×7 (02:44→22:05)
[2016-09-24 02:51] LABS: AUTOMATED NEUTROPHIL # 11.2 TH/MM3 (1.8-7.7); BASOPHIL # 0.1 TH/MM3 (0-0.2); BASOPHIL % 0.7 % (0.0-2.0); EOSINOPHIL # 0.2 TH/MM3 (0-0.4); EOSINOPHIL % 1.3 % (0.0-4.0); HEMATOCRIT 31.5 % (35.0-46.0); LYMPH % 16.4 % (9.0-44.0); LYMPHOCYTE # 2.4 TH/MM3 (1.0-4.8); MEAN CELL VOLUME 93.4 FL (80.0-100.0); MEAN CORPUSCULAR HEMOGLOBIN 31.3 PG (27.0-34.0); MEAN CORPUSCULAR HGB CONC 33.5 % (32.0-36.0); MONO % 6.3 % (0.0-8.0); NEUT % 75.3 % (16.0-70.0); PLATELET COUNT 141 TH/MM3 (150-450); RED BLOOD COUNT 3.37 MIL/MM3 (4.00-5.30); RED CELL DISTRIBUTION WIDTH 16.4 % (11.6-17.2); WHITE BLOOD COUNT 14.8 TH/MM3 (4.0-11.0)
[2016-09-24 02:54] LABS: HEMO FLAGS AUTO DIFF
[2016-09-24 03:01] LABS: INTERNATIONAL NORMALIZED RATIO 1.6 RATIO; PROTHROMBIN TIME - PATIENT 18.4 SEC (9.8-11.6)
[2016-09-24 03:32] LABS: PLATELET ESTIMATE SMEAR LOW (NORMAL); PLATELET MORPHOLOGY NORMAL (NORMAL); SCAN/DIFF AUTO DIFF CONFIRMED
[2016-09-24 04:00] VITALS: TEMP 99.2
[2016-09-24] MEDS: CEFEPIME INJ 2,000 MG in SODIUM CHLORIDE 0.9% INJ 100 ML IV SCH ×2 (06:00→15:27)
[2016-09-24] MEDS: INSULIN ASPART SUPPLEMENTAL SCALE SQ SCH ×4 (06:11→20:29)
[2016-09-24 08:00] VITALS: BP 137/66; PULSE 75; RESP 18; TEMP 98.8; O2SAT 100
[2016-09-24] MEDS: SODIUM CHLORIDE 0.9% FLUSH 10 ML FLUSH IV FLUSH SCH ×2 (09:00→20:16)
[2016-09-24] MEDS: TRIAMCINOLONE ACETONIDE 0.1% OINT 15 GM TUBE TOPICAL SCH ×2 (09:11→20:35)
[2016-09-24] MEDS: PANTOPRAZOLE SOD 40 MG DELAYED RELEASE TAB PO SCH (09:11)
[2016-09-24] MEDS: POTASSIUM CHLORIDE 20 MEQ CONTROLLED RELEASE TAB PO SCH (09:11)
[2016-09-24] MEDS: ATENOLOL 50 MG TAB PO SCH (09:11)
[2016-09-24] MEDS: SPIRONOLACTONE 25 MG TAB PO SCH ×2 (09:12→16:18)
[2016-09-24] MEDS: CALCIUM/VITAMIN D 250 MG/125 U TAB PO SCH ×2 (09:12→20:15)
[2016-09-24] MEDS: TIOTROPIUM BROMIDE 18 MCG INH INH SCH (09:12)
[2016-09-24] MEDS: DIGOXIN 0.125 MG TAB PO SCH (09:12)
[2016-09-24] MEDS: BUMETANIDE 1 MG TAB PO SCH ×2 (09:12→20:15)
[2016-09-24] MEDS: DEXT 5%-NACL 0.9% 1000 ML INJ 1,000 ML IV SCH (09:13)
--- NOTE | 2016-09-24 10:31 | PD.CARD.PN ---
Subjective Subjective Remarks Pt reports groin pain and can not walk Objective Medications Current Medications Medications (Trade) Dose Ordered Sig/Maximilian Route Start Time Stop Time Status Last Admin (NS Flush) 2 ml UNSCH PRN IV FLUSH 09/22/16 19:30 09/22/16 20:44 (NS Flush) 2 ml BID IV FLUSH 09/22/16 21:00 09/23/16 23:15 (Tylenol) 650 mg Q4H PRN PO 09/22/16 19:30 (Zofran Inj) 4 mg Q6H PRN IVP 09/22/16 19:30 09/23/16 08:38 (Senokot) 17.2 mg Q12H PRN PO 09/22/16 19:30 (Narcan Inj) 0.4 mg UNSCH PRN IV 09/22/16 19:30 (D50w (Vial) Inj) 50 ml UNSCH PRN IV 09/22/16 19:30 (Glucagon Inj) 1 mg UNSCH PRN OTHER 09/22/16 19:30 Hydromorphone HCl 1 mg 1 mg Q3HR PRN IV PUSH 09/22/16 23:15 09/24/16 09:12 (D5W-NS 1000 ml Inj) 1,000 ml @ 42 mls/hr [id number] IV 09/23/16 07:30 09/24/16 09:13 (Tenormin) 50 mg DAILY PO 09/23/16 09:00 09/24/16 09:11 (Bumetanide) 1 mg BID PO 09/23/16 09:00 09/24/16 09:12 (Wellbutrin) 100 mg BID PO 09/23/16 09:00 09/24/16 09:11 (Soma) 350 mg BID PRN PO 09/23/16 07:45 (Bentyl) 20 mg TID PRN PO 09/23/16 07:45 (Lanoxin) 0.125 mg DAILY PO 09/23/16 09:00 09/24/16 09:12 (Francis 10-325 Mg) 1 tab Q6H PRN PO 09/23/16 07:45 (Ativan) 0.5 mg Q6H PRN PO 09/23/16 07:45 09/23/16 23:07 (Protonix) 40 mg DAILY PO 09/23/16 09:00 09/24/16 09:11 (KCl) 20 meq DAILY PO 09/23/16 09:00 09/24/16 09:11 (Aldactone) 25 mg BIDPC PO 09/23/16 09:00 09/24/16 09:12 (Spiriva Inh) 18 mcg DAILY INH 09/23/16 09:00 09/24/16 09:12 (Aristocort 0.1% Oint) 1 applic BID TOPICAL 09/23/16 09:00 09/24/16 09:11 (Oscal-D 250-125) 500 mg BID PO 09/23/16 09:00 09/24/16 09:12 (Zofran Odt) 4 mg Q6H PRN PO 09/23/16 08:30 09/23/16 23:08 (Coumadin) 5 mg DAILY@1600 PO 09/23/16 16:00 09/23/16 17:34 Nitroglycerin 0.4 mg 0.4 mg Q5M PRN SL 09/23/16 19:45 Hold (Maxipime Inj/NS Inj) 100 ml @ 200 mls/hr DAILY@04,16 IV 09/24/16 04:15 09/24/16 06:00 Vital Signs / I&O Vital Signs Date Time Temp Pulse Resp B/P Pulse Ox O2 Delivery O2 Flow Rate FiO2 09/24/16 08:00 98.8 75 18 137/66 100 09/24/16 04:00 99.2 09/24/16 00:00 100.3 67 20 146/69 99 09/23/16 20:00 100.7 67 20 140/69 100 09/23/16 15:20 98.6 65 18 105/51 98 09/23/16 12:10 98.3 63 20 131/60 98 I/O 09/23/16 09/23/16 09/23/16 09/24/16 09/24/16 09/24/16 07:00 15:00 23:00 07:00 15:00 23:00 Intake Total 379 ml 240 ml Output Total 1100 ml 350 ml Balance -721 ml -110 ml Intake Oral 120 ml 240 ml IV Total 259 ml Output Urine Total 1100 ml 350 ml # Bowel Movements 0 0 Physical Exam GENERAL: Well developed, well nourished. No acute distress. HEENT: Jugular venous pressure is normal. CHEST: Lungs clear to auscultation bilaterally. Unlabored respiratory effort. CARDIAC: irregular rate and rhythm without S3, S4, or murmur. ABDOMEN: Soft, nontender, no hepatosplenomegaly. Bowel sounds present. EXTREMITIES: right groing tender to palpation Laboratory Laboratory Tests Test 09/23/16 09/24/16 20:21 02:15 White Blood Count 12.5 TH/MM3 14.8 TH/MM3 Red Blood Count 3.48 MIL/MM3 3.37 MIL/MM3 Hemoglobin 10.8 GM/DL 10.5 GM/DL Hematocrit 32.5 % 31.5 % Mean Corpuscular Volume 93.2 FL 93.4 FL Mean Corpuscular Hemoglobin 31.0 PG 31.3 PG Mean Corpuscular Hemoglobin 33.2 % 33.5 % Concent Red Cell Distribution Width 16.1 % 16.4 % Platelet Count 141 TH/MM3 141 TH/MM3 Mean Platelet Volume 8.3 FL 8.4 FL Neutrophils (%) (Auto) 73.2 % 75.3 % Lymphocytes (%) (Auto) 16.4 % 16.4 % Monocytes (%) (Auto) 8.2 % 6.3 % Eosinophils (%) (Auto) 1.9 % 1.3 % Basophils (%) (Auto) 0.3 % 0.7 % Neutrophils # (Auto) 9.2 TH/MM3 11.2 TH/MM3 Lymphocytes # (Auto) 2.0 TH/MM3 2.4 TH/MM3 Monocytes # (Auto) 1.0 TH/MM3 0.9 TH/MM3 Eosinophils # (Auto) 0.2 TH/MM3 0.2 TH/MM3 Basophils # (Auto) 0.0 TH/MM3 0.1 TH/MM3 CBC Comment DIFF FINAL AUTO DIFF Differential Comment AUTO DIFF CONFIRMED Total Creatine Kinase 197 U/L 236 U/L Creatine Kinase MB 1.5 NG/ML 1.0 NG/ML Creatine Kinase MB % 0.8 % 0.4 % Troponin I 0.03 NG/ML 0.02 NG/ML Platelet Estimate LOW Platelet Morphology Comment NORMAL Prothrombin Time 18.4 SEC Prothromb Time International 1.6 RATIO Ratio Imaging IR progress note: Left groin evaluated with ultrasound. approximately 5x6cm hematoma in the left groin. No flow identified with color flow or doppler. Pseudoaneurysm has occluded since Coumadin was DCed. Chest X-Ray 09/23/16 0000 Signed Impressions: Service Date/Time: Friday, September 23, 2016 20:08 - CONCLUSION: No evidence of acute cardiopulmonary disease or significant change. Dmitry Gallo MD Lower Extremity Ultrasound 09/22/16 0000 Signed Impressions: Service Date/Time: September 17:31 - CONCLUSION: Small left pseudoaneurysm. Ender Heaton MD FACR Assessment and Plan Assessment and Plan Pseudoaneurysm- Left groin evaluated with ultrasound. approximately 5x6cm hematoma in the left groin. No flow identified with color flow or doppler. Pseudoaneurysm has occluded since Coumadin was DCed. -stable =>observation AF- rate controlled, -on coumadin, per primary team....target INR 2.0-3.0 Ambulation- hospitalist to evaluate, she may need rehab Adeline Alberts MD September 24, 2016 10:31
--- NOTE | 2016-09-24 11:33 | HHI.PR ---
Subjective Remarks Follow up psuedoaneurysm. Patient reporting significant ongoing pain in the left groin. States that she is unable to ambulate due to the pain, which radiates down her left leg. She had an episode of chest pain overnight and was febrile. Antibiotics were started. No chest pain or dyspnea currently. Objective Vitals Vital Signs Date Time Temp Pulse Resp B/P Pulse Ox O2 Delivery O2 Flow Rate FiO2 09/24/16 08:00 98.8 75 18 137/66 100 09/24/16 04:00 99.2 09/24/16 00:00 100.3 67 20 146/69 99 09/23/16 20:00 100.7 67 20 140/69 100 09/23/16 15:20 98.6 65 18 105/51 98 09/23/16 12:10 98.3 63 20 131/60 98 I/O 09/23/16 09/23/16 09/23/16 09/24/16 09/24/16 09/24/16 07:00 15:00 23:00 07:00 15:00 23:00 Intake Total 379 ml 240 ml Output Total 1100 ml 350 ml Balance -721 ml -110 ml Intake Oral 120 ml 240 ml IV Total 259 ml Output Urine Total 1100 ml 350 ml # Bowel Movements 0 0 Result Diagram: 09/24/16 0215 09/23/16 0636 Imaging Last Impressions Chest X-Ray 09/23/16 0000 Signed Impressions: Service Date/Time: Friday, September 23, 2016 20:08 - CONCLUSION: No evidence of acute cardiopulmonary disease or significant change. Dmitry Gallo MD Lower Extremity Ultrasound 09/22/16 0000 Signed Impressions: Service Date/Time: September 17:31 - CONCLUSION: Small left pseudoaneurysm. Ender Heaton MD FACR Objective Remarks General: No acute distress. Heart: Regular rate and rhythm. No murmur. Lungs: Clear to auscultation bilaterally. No wheezes, rales, or rhonchi. Breathing is nonlabored. Abdomen: Soft, nontender, nondistended. Extremities: No lower extremity edema. Left lower extremity with varicose veins. Left upper leg with swelling and tenderness. Psych: Alert and oriented. Procedures None Urinary Catheter: No Vascular Central Line Catheter: No A/P Problem List: (1) Pseudoaneurysm following procedure ICD Code: I99.8 Status: Acute (2) DM (diabetes mellitus) ICD Code: E11.9 Status: Chronic (3) GERD (gastroesophageal reflux disease) ICD Code: K21.9 Status: Chronic (4) A-fib ICD Code: I48.91 Status: Chronic (5) HTN (hypertension) ICD Code: I10 Status: Chronic (6) CKD (chronic kidney disease) stage 3, GFR 30-59 ml/min ICD Code: N18.3 Status: Chronic Assessment and Plan 1. Left groin pseudoaneurysm following cardiac procedure: Continuing to have significant pain. Appreciate vascular surgery recommendations. Discussed with Dr. Rowell yesterday. No need for intervention at this time. Per cardiology, can restart Coumadin. 2. Hypertension: Blood pressure is better controlled. 3. Diabetes mellitus: Diet controlled. Monitor Accu-Cheks and cover with sliding scale insulin. 4. COPD, asthma: Oxygen, bronchodilators as needed. 5. History of hepatitis C: Outpatient follow-up. 6. Chronic kidney disease stage III: Stable. Monitor BUN, Creatinine. 7. History of atrial fibrillation: Appreciate cardiology recommendations. Coumadin resumed. 8. Fever, chest pain: CXR is negative. Blood cultures are negative so far. Continue antibiotics to cover for possible healthcare associated pneumonia. The patient reports that she has had multiple admissions in the past year for pneumonia. Problem Qualifiers (1) DM (diabetes mellitus): David Hayes MD September 24, 2016 11:33
[2016-09-24 12:00] VITALS: BP 121/65; PULSE 78; RESP 16; TEMP 99.3; O2SAT 99
[2016-09-24 12:16] LABS: BICARBONATE 31.4 MEQ/L (21.0-32.0); POTASSIUM 3.7 MEQ/L (3.5-5.1)
[2016-09-24] MEDS: ONDANSETRON HCL 4 MG/2 ML VIAL IVP PRN (15:27)
[2016-09-24] MEDS: WARFARIN SOD 5 MG TAB PO SCH (15:27)
[2016-09-24 16:00] VITALS: BP 128/68; PULSE 80; RESP 18; TEMP 98.9; O2SAT 99
--- NOTE | 2016-09-24 16:23 | EKG ---
Date Performed: 09/23/2016 Time Performed: 19:34:33 PTAGE: 66 years EKG: Sinus rhythm MARKED LEFT AXIS DEVIATION MODERATE INTRAVENTRICULAR CONDUCTION DELAY NONSPECIFIC ST & T-WAVE ABNORM ALITY ABNORMAL ECG PREVIOUS TRACING : 01/19/2016 13.41 Compared to prior tracing no significant change DOCTOR: Adeline Alberts Interpretating Date/Time 09/24/2016 16:22:31
[2016-09-24 20:00] VITALS: BP 134/63; PULSE 74; RESP 20; TEMP 100.1; O2SAT 100
[2016-09-24] MEDS: CARISOPRODOL 350 MG TAB PO PRN (20:29)
[2016-09-24] MEDS: RESP: ALBUTEROL 2.5 MG/IPRATROPIUM 0.5 MG NEB (PRN) NEB (22:31)
[2016-09-25] VITALS (8 sets, daily range): BP systolic 110–152; BP diastolic 57–67; PULSE 79–89; RESP 16–20; TEMP 98.7–100.5; O2SAT 96–100
[2016-09-25] MEDS: HYDROmorphone HCL PF 1 MG/ML VIAL IV PUSH PRN ×6 (02:26→20:23)
[2016-09-25] MEDS: CEFEPIME INJ 2,000 MG in SODIUM CHLORIDE 0.9% INJ 100 ML IV SCH ×2 (02:26→16:56)
[2016-09-25] MEDS: INSULIN ASPART SUPPLEMENTAL SCALE SQ SCH ×4 (06:09→22:16)
[2016-09-25] MEDS: DEXT 5%-NACL 0.9% 1000 ML INJ 1,000 ML IV SCH (06:10)
[2016-09-25 09:31] LABS: AUTOMATED NEUTROPHIL # 13.8 TH/MM3 (1.8-7.7); BASOPHIL % 0.2 % (0.0-2.0); EOSINOPHIL # 0.2 TH/MM3 (0-0.4); HEMATOCRIT 24.8 % (35.0-46.0); HEMO FLAGS DIFF FINAL; LYMPH % 20.3 % (9.0-44.0); LYMPHOCYTE # 4.1 TH/MM3 (1.0-4.8); MEAN CELL VOLUME 93.1 FL (80.0-100.0); MEAN CORPUSCULAR HEMOGLOBIN 31.4 PG (27.0-34.0); MEAN CORPUSCULAR HGB CONC 33.7 % (32.0-36.0); MONO % 10.5 % (0.0-8.0); PLATELET COUNT 146 TH/MM3 (150-450); RED BLOOD COUNT 2.67 MIL/MM3 (4.00-5.30); RED CELL DISTRIBUTION WIDTH 16.2 % (11.6-17.2); WHITE BLOOD COUNT 20.3 TH/MM3 (4.0-11.0)
[2016-09-25] MEDS: CALCIUM/VITAMIN D 250 MG/125 U TAB PO SCH ×2 (09:38→20:23)
[2016-09-25] MEDS: SODIUM CHLORIDE 0.9% FLUSH 10 ML FLUSH IV FLUSH SCH ×2 (09:38→20:24)
[2016-09-25 09:39] LABS: INTERNATIONAL NORMALIZED RATIO 3.2 RATIO; PROTHROMBIN TIME - PATIENT 37.1 SEC (9.8-11.6)
[2016-09-25] MEDS: BUMETANIDE 1 MG TAB PO SCH ×2 (09:39→20:23)
[2016-09-25] MEDS: PANTOPRAZOLE SOD 40 MG DELAYED RELEASE TAB PO SCH (09:39)
[2016-09-25] MEDS: buPROPion HCL 100 MG TAB PO SCH ×2 (09:39→20:23)
[2016-09-25] MEDS: ATENOLOL 50 MG TAB PO SCH (09:39)
[2016-09-25] MEDS: POTASSIUM CHLORIDE 20 MEQ CONTROLLED RELEASE TAB PO SCH (09:39)
[2016-09-25] MEDS: DIGOXIN 0.125 MG TAB PO SCH (09:39)
[2016-09-25] MEDS: SPIRONOLACTONE 25 MG TAB PO SCH ×2 (09:39→16:56)
[2016-09-25] MEDS: TRIAMCINOLONE ACETONIDE 0.1% OINT 15 GM TUBE TOPICAL SCH ×2 (09:40→22:17)
[2016-09-25] MEDS: TIOTROPIUM BROMIDE 18 MCG INH INH SCH (09:40)
[2016-09-25] MEDS: SENNOSIDES 8.6 MG TAB PO PRN (09:54)
[2016-09-25 09:57] LABS: BICARBONATE 32.6 MEQ/L (21.0-32.0); POTASSIUM 4.4 MEQ/L (3.5-5.1)
--- NOTE | 2016-09-25 11:45 | PD.CAR.PN ---
CVT Progress Note Subjective/Hospital Course: 66 year old female with a small pseudoaneurysm of the left groin as a result of a transfemoral ablation 2 days ago Patient is a good candidate for thrombin obliteration of the pseudoaneurysm and have spoken to Dr. Nitin Heaton interventional radiology We will proceed with the same tomorrow morning Patient should be off anticoagulants 09/23/16 Patient underwent today vascular ultrasound and was initially planned to undergo thrombin ablation of the pseudoaneurysm. The ultrasound reveals pseudo-aneurysm to be clotted off completely and therefore there is no need for additional thrombin injection. Patient can be placed back on anticoagulants and discharged as per medicine Recommend warm compresses to the groin for there is a 3 cm hematoma here surrounding the area but this is going to go away on its own No further local therapy is needed 09/25/16 Patient some more pain in her leg however this is due to the small hematoma in the groin No surgical therapy is indicated at this time Warm compresses and from surgical point patient can be discharged any time Objective: Vital Signs Date Time Temp Pulse Resp B/P Pulse Ox O2 Delivery O2 Flow Rate FiO2 09/25/16 11:06 21 09/25/16 08:00 99.0 82 16 152/65 100 09/25/16 04:00 98.7 79 18 110/57 98 09/25/16 00:00 100.5 79 20 146/59 99 09/24/16 20:00 100.1 74 20 134/63 100 09/24/16 16:00 98.9 80 18 128/68 99 09/24/16 12:00 99.3 78 16 121/65 99 Labs: Laboratory Tests Test 09/25/16 09:16 White Blood Count 20.3 TH/MM3 (4.0-11.0) Red Blood Count 2.67 MIL/MM3 (4.00-5.30) Hemoglobin 8.4 GM/DL (11.6-15.3) Hematocrit 24.8 % (35.0-46.0) Mean Corpuscular Volume 93.1 FL (80.0-100.0) Mean Corpuscular Hemoglobin 31.4 PG (27.0-34.0) Mean Corpuscular Hemoglobin 33.7 % Concent (32.0-36.0) Red Cell Distribution Width 16.2 % (11.6-17.2) Platelet Count 146 TH/MM3 (150-450) Mean Platelet Volume 8.2 FL (7.0-11.0) Neutrophils (%) (Auto) 68.0 % (16.0-70.0) Lymphocytes (%) (Auto) 20.3 % (9.0-44.0) Monocytes (%) (Auto) 10.5 % (0.0-8.0) Eosinophils (%) (Auto) 1.0 % (0.0-4.0) Basophils (%) (Auto) 0.2 % (0.0-2.0) Neutrophils # (Auto) 13.8 TH/MM3 (1.8-7.7) Lymphocytes # (Auto) 4.1 TH/MM3 (1.0-4.8) Monocytes # (Auto) 2.1 TH/MM3 (0-0.9) Eosinophils # (Auto) 0.2 TH/MM3 (0-0.4) Basophils # (Auto) 0.0 TH/MM3 (0-0.2) CBC Comment DIFF FINAL Differential Comment Prothrombin Time 37.1 SEC (9.8-11.6) Prothromb Time International 3.2 RATIO Ratio Sodium Level 138 MEQ/L (136-145) Potassium Level 4.4 MEQ/L (3.5-5.1) Chloride Level 99 MEQ/L (98-107) Carbon Dioxide Level 32.6 MEQ/L (21.0-32.0) Anion Gap 6 MEQ/L (5-15) Blood Urea Nitrogen 35 MG/DL (7-18) Creatinine 1.20 MG/DL (0.50-1.00) Estimat Glomerular Filtration 45 ML/MIN (>89) Rate Random Glucose 158 MG/DL (74-106) Calcium Level 8.5 MG/DL (8.5-10.1) Result Diagram: 09/25/16 0916 09/25/16 0916 Selwyn Muir MD September 25, 2016 11:45
--- NOTE | 2016-09-25 12:09 | HHI.PR ---
Subjective Remarks Follow-up pseudoaneurysm, pneumonia. Patient states that when she was preparing to work with physical therapy, she developed sudden sharp pain in the left upper thigh and groin. She feels that this area is more swollen today. She has significant difficulty moving her leg because of the pain. She denies any pain or swelling of the right leg. Denies chest pain, but does report occasional dyspnea. Coughing occasionally as well. Objective Vitals Vital Signs Date Time Temp Pulse Resp B/P Pulse Ox O2 Delivery O2 Flow Rate FiO2 09/25/16 11:06 21 09/25/16 08:00 99.0 82 16 152/65 100 09/25/16 04:00 98.7 79 18 110/57 98 09/25/16 00:00 100.5 79 20 146/59 99 09/24/16 20:00 100.1 74 20 134/63 100 09/24/16 16:00 98.9 80 18 128/68 99 I/O 09/24/16 09/24/16 09/24/16 09/25/16 09/25/16 09/25/16 07:00 15:00 23:00 07:00 15:00 23:00 Intake Total 240 ml 1236 ml 602 ml 552 ml Output Total 350 ml 800 ml 300 ml 475 ml Balance -110 ml 436 ml 302 ml 77 ml Intake Oral 240 ml 600 ml 240 ml 120 ml IV Total 636 ml 362 ml 432 ml Output Urine Total 350 ml 800 ml 300 ml 475 ml # Bowel Movements 0 1 0 0 Result Diagram: 09/25/16 0916 09/25/16 0916 Imaging Last Impressions Chest X-Ray 09/23/16 0000 Signed Impressions: Service Date/Time: Friday, September 23, 2016 20:08 - CONCLUSION: No evidence of acute cardiopulmonary disease or significant change. Dmitry Gallo MD Lower Extremity Ultrasound 09/22/16 0000 Signed Impressions: Service Date/Time: September 17:31 - CONCLUSION: Small left pseudoaneurysm. Ender Heaton MD FACR Objective Remarks General: No acute distress. Heart: Regular rate and rhythm. No murmur. Lungs: Clear to auscultation bilaterally. No wheezes, rales, or rhonchi. Breathing is nonlabored. Abdomen: Soft, nontender, nondistended. Extremities: No lower extremity edema. Left lower extremity with varicose veins. Left upper leg with swelling and tenderness, slightly increased from yesterday. Psych: Alert and oriented. Procedures None Urinary Catheter: No Vascular Central Line Catheter: No A/P Problem List: (1) Pseudoaneurysm following procedure ICD Code: I99.8 Status: Acute (2) DM (diabetes mellitus) ICD Code: E11.9 Status: Chronic (3) GERD (gastroesophageal reflux disease) ICD Code: K21.9 Status: Chronic (4) A-fib ICD Code: I48.91 Status: Chronic (5) HTN (hypertension) ICD Code: I10 Status: Chronic (6) CKD (chronic kidney disease) stage 3, GFR 30-59 ml/min ICD Code: N18.3 Status: Chronic Assessment and Plan 1. Left groin pseudoaneurysm following cardiac procedure: Continuing to have significant pain. Appreciate vascular surgery recommendations. Per Dr. Rowell. No need for intervention at this time. Per cardiology, can restart Coumadin. The patient developed sudden onset of worsening pain and feels that there is more swelling today. Concern for worsening of the pseudoaneurysm. Check ultrasound. Patient also had a 2 point drop in hemoglobin. Monitor H&H. Transfuse if necessary. 2. Hypertension: Blood pressure is better controlled. 3. Diabetes mellitus: Diet controlled. Monitor Accu-Cheks and cover with sliding scale insulin. 4. COPD, asthma: Oxygen, bronchodilators as needed. 5. History of hepatitis C: Outpatient follow-up. 6. Chronic kidney disease stage III: Stable. Monitor BUN, Creatinine. 7. History of atrial fibrillation: Appreciate cardiology recommendations. Coumadin resumed. INR is supratherapeutic today. 8. Fever, chest pain: CXR is negative. Blood cultures are negative so far. Continue antibiotics to cover for possible healthcare associated pneumonia. The patient reports that she has had multiple admissions in the past year for pneumonia. 9. Anemia: H&H are trending down. Monitor closely and transfuse if necessary. Problem Qualifiers (1) DM (diabetes mellitus): David Hayes MD September 25, 2016 12:09
--- NOTE | 2016-09-25 13:28 | RADRPT ---
EXAM DATE/TIME: 09/25/2016 12:51 [facility] COMPARISON: US LEG BILATERAL HEMATOMA/PSEUDOANEURYSM, September 22, 2016, 17:31. INDICATIONS : Left pseudoaneurysm. MEDICAL HISTORY : Myocardial infarction. Hypertension. Congestive heart failure. A-fib. COPD. Sleep apnea. GERD. Ulcer. Uterine cancer. Ovarian cancer. Renal failure. UTI. Liver disease. SURGICAL HISTORY : Appendectomy. Cholecystectomy. Hysterectomy. Cardiac cath, bilateral. D&C. ENCOUNTER: Subsequent ACUITY: 4-6 days PAIN SCORE: 7/10 LOCATION: Left groin. AREA EVALUATED: Left groin. FINDINGS: In the left groin a 7.3 x 7.9 cm hypoechoic and anechoic mass is present. Characteristic of a large h ematoma. There is a small pseudoaneurysm measuring 1.5 x 1.3 x 1.2 cm with a 3 mm neck to the common femoral artery as well as a 7 mm connection to the greater saphenous vein. CONCLUSION: 1. Pseudoaneurysm and hematoma. Min Mae MD on September 25, 2016 at 13:24 Board Certified Radiologist. This report was verified electronically.
[2016-09-25 13:54] LABS: HEMATOCRIT 24.3 % (35.0-46.0); REVIEW FLAG FINAL
[2016-09-25 18:03] LABS: HEMATOCRIT 22.3 % (35.0-46.0); REVIEW FLAG FINAL
[2016-09-25] MEDS: CARISOPRODOL 350 MG TAB PO PRN (20:23)
[2016-09-26] VITALS (8 sets, daily range): BP systolic 91–131; BP diastolic 53–64; PULSE 71–83; RESP 18–20; TEMP 97.2–99.8; O2SAT 96–100
[2016-09-26] MEDS: HYDROmorphone HCL PF 1 MG/ML VIAL IV PUSH PRN ×8 (00:10→23:36)
[2016-09-26] MEDS: CEFEPIME INJ 2,000 MG in SODIUM CHLORIDE 0.9% INJ 100 ML IV SCH ×2 (03:21→16:36)
[2016-09-26 06:15] LABS: BASOPHIL # 0.1 TH/MM3 (0-0.2); BASOPHIL % 0.4 % (0.0-2.0); EOSINOPHIL # 0.3 TH/MM3 (0-0.4); EOSINOPHIL % 1.8 % (0.0-4.0); HEMATOCRIT 28.3 % (35.0-46.0); HEMO FLAGS DIFF FINAL; LYMPH % 25.6 % (9.0-44.0); LYMPHOCYTE # 4.2 TH/MM3 (1.0-4.8); MEAN CELL VOLUME 98.8 FL (80.0-100.0); MEAN CORPUSCULAR HEMOGLOBIN 31.8 PG (27.0-34.0); MEAN CORPUSCULAR HGB CONC 32.2 % (32.0-36.0); MONO % 11.2 % (0.0-8.0); PLATELET COUNT 125 TH/MM3 (150-450); RED BLOOD COUNT 2.87 MIL/MM3 (4.00-5.30); RED CELL DISTRIBUTION WIDTH 17.9 % (11.6-17.2); WHITE BLOOD COUNT 16.3 TH/MM3 (4.0-11.0)
[2016-09-26] MEDS: INSULIN ASPART SUPPLEMENTAL SCALE SQ SCH ×4 (06:33→21:10)
[2016-09-26 06:38] LABS: INTERNATIONAL NORMALIZED RATIO 2.9 RATIO; PROTHROMBIN TIME - PATIENT 33.4 SEC (9.8-11.6)
[2016-09-26 06:51] LABS: BICARBONATE 27.2 MEQ/L (21.0-32.0); POTASSIUM 3.5 MEQ/L (3.5-5.1)
[2016-09-26] MEDS: DEXT 5%-NACL 0.9% 1000 ML INJ 1,000 ML IV SCH (06:57)
[2016-09-26] MEDS: SPIRONOLACTONE 25 MG TAB PO SCH ×2 (08:19→16:38)
[2016-09-26] MEDS: ATENOLOL 50 MG TAB PO SCH (08:19)
[2016-09-26] MEDS: CALCIUM/VITAMIN D 250 MG/125 U TAB PO SCH ×2 (08:19→20:25)
[2016-09-26] MEDS: BUMETANIDE 1 MG TAB PO SCH ×2 (08:19→20:25)
[2016-09-26] MEDS: PANTOPRAZOLE SOD 40 MG DELAYED RELEASE TAB PO SCH (08:19)
[2016-09-26] MEDS: DIGOXIN 0.125 MG TAB PO SCH (08:19)
[2016-09-26] MEDS: buPROPion HCL 100 MG TAB PO SCH ×2 (08:19→20:25)
[2016-09-26] MEDS: POTASSIUM CHLORIDE 20 MEQ CONTROLLED RELEASE TAB PO SCH (08:20)
[2016-09-26] MEDS: SODIUM CHLORIDE 0.9% FLUSH 10 ML FLUSH IV FLUSH SCH ×2 (08:24→20:28)
[2016-09-26] MEDS: TRIAMCINOLONE ACETONIDE 0.1% OINT 15 GM TUBE TOPICAL SCH ×2 (08:29→20:27)
[2016-09-26] MEDS: TIOTROPIUM BROMIDE 18 MCG INH INH SCH (08:29)
[2016-09-26] MEDS: SENNOSIDES 8.6 MG TAB PO PRN (09:32)
[2016-09-26] MEDS: CARISOPRODOL 350 MG TAB PO PRN ×2 (09:36→21:02)
--- NOTE | 2016-09-26 11:08 | PD.CAR.PN ---
CVT Progress Note Subjective/Hospital Course: 66 year old female with a small pseudoaneurysm of the left groin as a result of a transfemoral ablation 2 days ago Patient is a good candidate for thrombin obliteration of the pseudoaneurysm and have spoken to Dr. Nitin Heaton interventional radiology We will proceed with the same tomorrow morning Patient should be off anticoagulants 09/23/16 Patient underwent today vascular ultrasound and was initially planned to undergo thrombin ablation of the pseudoaneurysm. The ultrasound reveals pseudo-aneurysm to be clotted off completely and therefore there is no need for additional thrombin injection. Patient can be placed back on anticoagulants and discharged as per medicine Recommend warm compresses to the groin for there is a 3 cm hematoma here surrounding the area but this is going to go away on its own No further local therapy is needed 09/25/16 Patient some more pain in her leg however this is due to the small hematoma in the groin No surgical therapy is indicated at this time Warm compresses and from surgical point patient can be discharged any time 09/26/16 Left groin hematoma measured about 7.5 cm in diameter and fairly firm and on ultrasound yesterday does not show any connection to the actual active circulation The pseudoaneurysm itself is clotted but there may be some connection between the artery and the vein in the form of a small arteriovenous fistula to the greater saphenous vein This occasionally occurs in situations where needle passes through the vein into the artery and then every catheter that passes through essentially widens this leaving AV fistula behind Most of these will clotted off under own however this is a new finding 5 days out I discussed this with interventional radiology and the patient In the best case scenario ligament aspirate the hematoma and that is it. If patient doesn't get relief from this or hematoma is not liquefied than have no other choice than take the patient to the OR clean this whole area up, located the AV fistula and ligate as well as repaired the artery It looks more and more like the lateral option will be the choice Objective: Vital Signs Date Time Temp Pulse Resp B/P Pulse Ox O2 Delivery O2 Flow Rate FiO2 09/26/16 08:00 97.2 71 18 123/64 99 09/26/16 04:00 99.8 80 18 131/60 100 09/26/16 00:00 99.5 78 18 126/64 98 09/25/16 20:00 100.2 81 18 138/67 100 09/25/16 19:13 83 09/25/16 16:00 99.6 89 20 124/62 96 09/25/16 12:00 98.9 84 18 136/64 100 09/25/16 11:06 21 Labs: Laboratory Tests Test 09/26/16 05:05 White Blood Count 16.3 TH/MM3 (4.0-11.0) Red Blood Count 2.87 MIL/MM3 (4.00-5.30) Hemoglobin 9.1 GM/DL (11.6-15.3) Hematocrit 28.3 % (35.0-46.0) Mean Corpuscular Volume 98.8 FL (80.0-100.0) Mean Corpuscular Hemoglobin 31.8 PG (27.0-34.0) Mean Corpuscular Hemoglobin 32.2 % Concent (32.0-36.0) Red Cell Distribution Width 17.9 % (11.6-17.2) Platelet Count 125 TH/MM3 (150-450) Mean Platelet Volume 8.9 FL (7.0-11.0) Neutrophils (%) (Auto) 61.0 % (16.0-70.0) Lymphocytes (%) (Auto) 25.6 % (9.0-44.0) Monocytes (%) (Auto) 11.2 % (0.0-8.0) Eosinophils (%) (Auto) 1.8 % (0.0-4.0) Basophils (%) (Auto) 0.4 % (0.0-2.0) Neutrophils # (Auto) 10.0 TH/MM3 (1.8-7.7) Lymphocytes # (Auto) 4.2 TH/MM3 (1.0-4.8) Monocytes # (Auto) 1.8 TH/MM3 (0-0.9) Eosinophils # (Auto) 0.3 TH/MM3 (0-0.4) Basophils # (Auto) 0.1 TH/MM3 (0-0.2) CBC Comment DIFF FINAL Differential Comment Prothrombin Time 33.4 SEC (9.8-11.6) Prothromb Time International 2.9 RATIO Ratio Sodium Level 135 MEQ/L (136-145) Potassium Level 3.5 MEQ/L (3.5-5.1) Chloride Level 99 MEQ/L (98-107) Carbon Dioxide Level 27.2 MEQ/L (21.0-32.0) Anion Gap 9 MEQ/L (5-15) Blood Urea Nitrogen 39 MG/DL (7-18) Creatinine 1.20 MG/DL (0.50-1.00) Estimat Glomerular Filtration 45 ML/MIN (>89) Rate Random Glucose 103 MG/DL (74-106) Calcium Level 7.7 MG/DL (8.5-10.1) Result Diagram: 09/26/16 0505 09/26/16 0505 Selwyn Muir MD September 26, 2016 11:08
[2016-09-26] MEDS ORDERED: PHYTONADIONE 10 MG/ML VIAL SQ ONE (11:30)
--- NOTE | 2016-09-26 11:32 | HHI.PR ---
Subjective Remarks Follow up hematoma, anemia. Patient still reporting significant pain in the left groin. No improvement overnight. No other complaints at this time. Objective Vitals Vital Signs Date Time Temp Pulse Resp B/P Pulse Ox O2 Delivery O2 Flow Rate FiO2 09/26/16 08:00 97.2 71 18 123/64 99 09/26/16 04:00 99.8 80 18 131/60 100 09/26/16 00:00 99.5 78 18 126/64 98 09/25/16 20:00 100.2 81 18 138/67 100 09/25/16 19:13 83 09/25/16 16:00 99.6 89 20 124/62 96 09/25/16 12:00 98.9 84 18 136/64 100 I/O 09/25/16 09/25/16 09/25/16 09/26/16 09/26/16 09/26/16 07:00 15:00 23:00 07:00 15:00 23:00 Intake Total 552 ml 642 ml 876 ml 902 ml 190 ml Output Total 475 ml 400 ml 1500 ml 300 ml Balance 77 ml 242 ml -624 ml 602 ml 190 ml Intake Oral 120 ml 480 ml 360 ml 240 ml IV Total 432 ml 162 ml 516 ml 255 ml 190 ml Packed Cells 407 ml Output Urine Total 475 ml 400 ml 1500 ml 300 ml # Voids 1 # Bowel Movements 0 1 0 0 Result Diagram: 09/26/16 0505 09/26/16 0505 Imaging Last Impressions Lower Extremity Ultrasound 09/25/16 0000 Signed Impressions: Service Date/Time: Sunday, September 25, 2016 12:51 - CONCLUSION: 1. Pseudoaneurysm and hematoma. Min Mae MD Chest X-Ray 09/23/16 0000 Signed Impressions: Service Date/Time: Friday, September 23, 2016 20:08 - CONCLUSION: No evidence of acute cardiopulmonary disease or significant change. Dmitry Gallo MD Objective Remarks General: No acute distress. Heart: Regular rate and rhythm. No murmur. Lungs: Clear to auscultation bilaterally. No wheezes, rales, or rhonchi. Breathing is nonlabored. Abdomen: Soft, nontender, nondistended. Extremities: No lower extremity edema. Left lower extremity with varicose veins. Left upper leg with swelling and tenderness. Psych: Alert and oriented. Procedures None Urinary Catheter: No Vascular Central Line Catheter: No A/P Problem List: (1) Pseudoaneurysm following procedure ICD Code: I99.8 Status: Acute (2) DM (diabetes mellitus) ICD Code: E11.9 Status: Chronic (3) GERD (gastroesophageal reflux disease) ICD Code: K21.9 Status: Chronic (4) A-fib ICD Code: I48.91 Status: Chronic (5) HTN (hypertension) ICD Code: I10 Status: Chronic (6) CKD (chronic kidney disease) stage 3, GFR 30-59 ml/min ICD Code: N18.3 Status: Chronic Assessment and Plan 1. Left groin pseudoaneurysm following cardiac procedure: Continuing to have significant pain. Appreciate vascular surgery recommendations. Per Dr. Rowell. No need for intervention at this time. Coumadin restarted per cardiology recommendations. Now on hold secondary to anemia, hematoma. Monitor H&H. Transfuse if necessary. 2. Hypertension: Blood pressure is better controlled. 3. Diabetes mellitus: Diet controlled. Monitor Accu-Cheks and cover with sliding scale insulin. 4. COPD, asthma: Oxygen, bronchodilators as needed. 5. History of hepatitis C: Outpatient follow-up. 6. Chronic kidney disease stage III: Stable. Monitor BUN, Creatinine. 7. History of atrial fibrillation: Appreciate cardiology recommendations. Coumadin on hold. INR is therapeutic today. 8. Fever, chest pain: CXR is negative. Blood cultures are negative so far. Continue antibiotics to cover for possible healthcare associated pneumonia. The patient reports that she has had multiple admissions in the past year for pneumonia. 9. Anemia: H&H improved following transfusion of 1 unit PRBCs. 10. Hematoma, left groin: Has increased in size. Discussed with Dr. Muir. Planning for percutaneous drainage. Problem Qualifiers (1) DM (diabetes mellitus): David Hayes MD September 26, 2016 11:32
[2016-09-26 12:01] LABS: HEMATOCRIT 23.4 % (35.0-46.0); REVIEW FLAG FINAL
--- NOTE | 2016-09-26 15:23 | PD.RAD ---
Post Procedure Progress Note Pre Procedure Diagnosis: (1) Pseudoaneurysm following procedure (2) Groin hematoma Post Procedure Diagnosis: (1) Pseudoaneurysm following procedure (2) Groin hematoma Procedure Date: September 26, 2016 Supervising Radiologist: Juan Logan Proceduralist/Assist: Scarlett Mathis, RT(R), Ana Llamas RT(R)() Anesthesia: Local Plan of Activity Patient to Unit: Nursing Unit Patient Condition: Good See PACS Report for procedural detail/treatment Drainage Procedure Procedure 1 Imaging Guidance: Ultrasound Procedure Type: Aspiration (Left groin hematoma) Procedure: Placement Romansh: 7 Drainage: Suction (Syringe) Fluid Removal (CCs): 35 Fluid Description: Bloody Findings: Large hematoma left groin with liquid center. Aspirated 35 cc of serous then dark blood fluid. Possible small AV fistula from BOILER ENGINEER to GSV, left groin. Site marked for possible surgical intervention Juan Logan MD September 26, 2016 15:23
--- NOTE | 2016-09-26 16:13 | RADRPT ---
EXAM DATE/TIME: 09/26/2016 13:56 [facility] COMPARISON: No previous studies available for comparison. INDICATIONS : Patient with symptomatic left groin hematoma and possible AV fistula. MEDICAL HISTORY : HTN, Diabetes, Asthma, CHF, A-Fib, COPD, Hepatitis C, CKD, Fallopian tube cancer, Anemia, Chronic GI bleeds, Ulcerative colitis SURGICAL HISTORY : Watchman device insertion, Cholecystectomy, Hysterectomy, Cryoablation colposcopy ENCOUNTER: Subsequent ACUITY: 4 - 6 days PAIN SCORE: 7/10 LOCATION: Left groin IMAGE SERIES: MEDICATION(S): DEVICE(S): 1.) 7 Sen[place]e X20CM Skater locking catheter PROCEDURE : 1. drainage of a left groin hematoma. The risks, benefits and alternatives to the procedure were explained and verbal and written consent w as obtained. The site was prepped in sterile fashion. Full sterile technique was used, including ca p, mask, sterile gloves and gown and a large sterile sheet. Hand hygiene and 2% chlorhexidine and/or betadine/alcohol prep was utilized per protocol for cutaneous antisepsis. The skin and subcutaneous tissues were infiltrated with local anesthetic solution. With ultrasound guidance, a 21 gauge micropuncture needle was advanced into the liquid center of the left groin hematoma. No 18 wire was advanced through the needle over which a 3-4 dilator was placed. The wire and inner stylette were removed with immediate return of a small amount of loli serous flui d. An 035 wire was advanced through the 4 Sen[place]e dilator to facilitate placement of a 6 Sen[place]e skater . Approximately 35 cc of bloody fluid was then aspirated CONCLUSION: 1. Uncomplicated left groin hematoma drainage as above. 2. On ultrasound evaluation, the patient appears to have a very small connection between the common f emoral artery and the adjacent greater saphenous vein. Findings were discussed with Dr. Isadora nur vascular surgery. Juan Logan MD on September 26, 2016 at 16:04 Board Certified Radiologist. This report was verified electronically.
[2016-09-26 19:14] LABS: REVIEW FLAG FINAL
[2016-09-27] VITALS (8 sets, daily range): BP systolic 94–116; BP diastolic 49–63; PULSE 67–90; RESP 16–20; TEMP 96.6–100.4; O2SAT 95–100
[2016-09-27 01:12] LABS: HEMATOCRIT 22.2 % (35.0-46.0)
[2016-09-27] MEDS: HYDROmorphone HCL PF 1 MG/ML VIAL IV PUSH PRN ×6 (02:54→22:05)
[2016-09-27] MEDS: CEFEPIME INJ 2,000 MG in SODIUM CHLORIDE 0.9% INJ 100 ML IV SCH ×2 (03:00→17:03)
[2016-09-27] MEDS: INSULIN ASPART SUPPLEMENTAL SCALE SQ SCH ×4 (05:55→19:34)
[2016-09-27] MEDS: DEXT 5%-NACL 0.9% 1000 ML INJ 1,000 ML IV SCH ×2 (05:55→12:44)
[2016-09-27] MEDS: SODIUM CHLORIDE 0.9% FLUSH 10 ML FLUSH IV FLUSH SCH ×2 (08:23→19:34)
[2016-09-27] MEDS: ATENOLOL 50 MG TAB PO SCH (08:26)
[2016-09-27] MEDS: PANTOPRAZOLE SOD 40 MG DELAYED RELEASE TAB PO SCH (08:26)
[2016-09-27] MEDS: buPROPion HCL 100 MG TAB PO SCH ×2 (08:26→19:33)
[2016-09-27] MEDS: DIGOXIN 0.125 MG TAB PO SCH (08:26)
[2016-09-27] MEDS: POTASSIUM CHLORIDE 20 MEQ CONTROLLED RELEASE TAB PO SCH (08:26)
[2016-09-27] MEDS: TIOTROPIUM BROMIDE 18 MCG INH INH SCH (08:27)
[2016-09-27] MEDS: TRIAMCINOLONE ACETONIDE 0.1% OINT 15 GM TUBE TOPICAL SCH ×2 (08:27→21:00)
[2016-09-27] MEDS: CALCIUM/VITAMIN D 250 MG/125 U TAB PO SCH ×2 (08:27→19:33)
[2016-09-27] MEDS: SPIRONOLACTONE 25 MG TAB PO SCH ×2 (08:27→17:03)
[2016-09-27] MEDS: BUMETANIDE 1 MG TAB PO SCH ×2 (08:27→19:33)
--- NOTE | 2016-09-27 10:01 | HHI.PR ---
Subjective Remarks Follow-up hematoma, anemia. Patient is still having pain in the left groin, but less pressure than yesterday. No other complaints at this time. Objective Vitals Vital Signs Date Time Temp Pulse Resp B/P Pulse Ox O2 Delivery O2 Flow Rate FiO2 09/27/16 08:00 97.7 90 18 98/49 99 09/27/16 06:15 18 09/27/16 04:25 97.1 70 20 113/59 100 09/27/16 04:07 96.6 71 20 94/49 100 09/27/16 04:00 96.6 71 20 94/49 100 09/27/16 00:00 100.4 79 18 104/52 95 09/26/16 22:19 20 09/26/16 20:00 98.9 80 20 109/55 96 09/26/16 20:00 83 09/26/16 16:03 99.0 71 20 91/53 98 09/26/16 16:00 99.0 71 20 91/53 98 09/26/16 15:33 99.0 71 20 91/53 98 09/26/16 15:33 99.0 71 20 91/53 98 09/26/16 12:00 98.0 75 20 92/55 99 I/O 09/26/16 09/26/16 09/26/16 09/27/16 09/27/16 09/27/16 07:00 15:00 23:00 07:00 15:00 23:00 Intake Total 902 ml 190 ml 480 ml 336 ml 1059 ml Output Total 300 ml 350 ml 650 ml Balance 602 ml 190 ml 130 ml -314 ml 1059 ml Intake Oral 240 ml 480 ml 0 ml IV Total 255 ml 190 ml 336 ml 809 ml Packed Cells 407 ml 250 ml Output Urine Total 300 ml 350 ml 650 ml # Voids 1 # Bowel Movements 0 0 0 Result Diagram: 09/27/16 0052 09/26/16 0505 Imaging Last Impressions Abscess Drainage X-Ray 09/26/16 0000 Signed Impressions: Service Date/Time: Monday, September 26, 2016 13:56 - CONCLUSION: 1. Uncomplicated left groin hematoma drainage as above. 2. On ultrasound evaluation, the patient appears to have a very small connection between the common femoral artery and the adjacent greater saphenous vein. Findings were discussed with Dr. Muir from vascular surgery. Juan Logan MD Lower Extremity Ultrasound 09/25/16 0000 Signed Impressions: Service Date/Time: Sunday, September 25, 2016 12:51 - CONCLUSION: 1. Pseudoaneurysm and hematoma. Min Mae MD Chest X-Ray 09/23/16 0000 Signed Impressions: Service Date/Time: Friday, September 23, 2016 20:08 - CONCLUSION: No evidence of acute cardiopulmonary disease or significant change. Dmitry Gallo MD Objective Remarks General: No acute distress. Heart: Regular rate and rhythm. No murmur. Lungs: Clear to auscultation bilaterally. No wheezes, rales, or rhonchi. Breathing is nonlabored. Abdomen: Soft, nontender, nondistended. Extremities: No lower extremity edema. Left lower extremity with varicose veins. Left upper leg with swelling and tenderness. Psych: Alert and oriented. Procedures 09/26/16 ultrasound-guided drainage of left groin hematoma Urinary Catheter: No Vascular Central Line Catheter: No A/P Problem List: (1) Pseudoaneurysm following procedure ICD Code: I99.8 Status: Acute (2) DM (diabetes mellitus) ICD Code: E11.9 Status: Chronic (3) GERD (gastroesophageal reflux disease) ICD Code: K21.9 Status: Chronic (4) A-fib ICD Code: I48.91 Status: Chronic (5) HTN (hypertension) ICD Code: I10 Status: Chronic (6) CKD (chronic kidney disease) stage 3, GFR 30-59 ml/min ICD Code: N18.3 Status: Chronic Assessment and Plan 1. Left groin pseudoaneurysm following cardiac procedure: Continuing to have significant pain. Appreciate vascular surgery recommendations. Per Dr. Rowell. No need for intervention at this time. Coumadin restarted per cardiology recommendations. Now on hold secondary to anemia, hematoma. Monitor H&H. Transfuse if necessary. 2. Hypertension: Blood pressure is better controlled. 3. Diabetes mellitus: Diet controlled. Monitor Accu-Cheks and cover with sliding scale insulin. 4. COPD, asthma: Oxygen, bronchodilators as needed. 5. History of hepatitis C: Outpatient follow-up. 6. Chronic kidney disease stage III: Stable. Monitor BUN, Creatinine. 7. History of atrial fibrillation: Appreciate cardiology recommendations. Coumadin on hold. INR is therapeutic today. 8. Fever, chest pain: CXR is negative. Blood cultures are negative so far. Continue antibiotics to cover for possible healthcare associated pneumonia. The patient reports that she has had multiple admissions in the past year for pneumonia. 9. Anemia: Patient's hemoglobin decreased again overnight and she received transfusion of one more unit PRBCs. Repeat labs are pending. 10. Hematoma, left groin: Status post percutaneous drainage by interventional radiology. Problem Qualifiers (1) DM (diabetes mellitus): David Hayes MD September 27, 2016 10:01
[2016-09-27] MEDS: RESP: ALBUTEROL 2.5 MG/IPRATROPIUM 0.5 MG NEB (PRN) NEB (11:00)
[2016-09-27] MEDS: CARISOPRODOL 350 MG TAB PO PRN (12:44)
[2016-09-27 14:53] LABS: AUTOMATED NEUTROPHIL # 9.7 TH/MM3 (1.8-7.7); BASOPHIL # 0.1 TH/MM3 (0-0.2); BASOPHIL % 0.5 % (0.0-2.0); EOSINOPHIL # 0.3 TH/MM3 (0-0.4); EOSINOPHIL % 1.9 % (0.0-4.0); HEMATOCRIT 27.9 % (35.0-46.0); HEMO FLAGS DIFF FINAL; LYMPH % 17.8 % (9.0-44.0); LYMPHOCYTE # 2.4 TH/MM3 (1.0-4.8); MEAN CELL VOLUME 90.9 FL (80.0-100.0); MEAN CORPUSCULAR HEMOGLOBIN 30.2 PG (27.0-34.0); MEAN CORPUSCULAR HGB CONC 33.2 % (32.0-36.0); MONO % 8.9 % (0.0-8.0); NEUT % 70.9 % (16.0-70.0); PLATELET COUNT 133 TH/MM3 (150-450); RED BLOOD COUNT 3.07 MIL/MM3 (4.00-5.30); RED CELL DISTRIBUTION WIDTH 16.7 % (11.6-17.2); WHITE BLOOD COUNT 13.7 TH/MM3 (4.0-11.0)
--- NOTE | 2016-09-27 17:07 | PD.CAR.PN ---
CVT Progress Note Subjective/Hospital Course: 66 year old female with a small pseudoaneurysm of the left groin as a result of a transfemoral ablation 2 days ago Patient is a good candidate for thrombin obliteration of the pseudoaneurysm and have spoken to Dr. Nitin Heaton interventional radiology We will proceed with the same tomorrow morning Patient should be off anticoagulants 09/23/16 Patient underwent today vascular ultrasound and was initially planned to undergo thrombin ablation of the pseudoaneurysm. The ultrasound reveals pseudo-aneurysm to be clotted off completely and therefore there is no need for additional thrombin injection. Patient can be placed back on anticoagulants and discharged as per medicine Recommend warm compresses to the groin for there is a 3 cm hematoma here surrounding the area but this is going to go away on its own No further local therapy is needed 09/25/16 Patient some more pain in her leg however this is due to the small hematoma in the groin No surgical therapy is indicated at this time Warm compresses and from surgical point patient can be discharged any time 09/26/16 Left groin hematoma measured about 7.5 cm in diameter and fairly firm and on ultrasound yesterday does not show any connection to the actual active circulation The pseudoaneurysm itself is clotted but there may be some connection between the artery and the vein in the form of a small arteriovenous fistula to the greater saphenous vein This occasionally occurs in situations where needle passes through the vein into the artery and then every catheter that passes through essentially widens this leaving AV fistula behind Most of these will clotted off under own however this is a new finding 5 days out I discussed this with interventional radiology and the patient In the best case scenario ligament aspirate the hematoma and that is it. If patient doesn't get relief from this or hematoma is not liquefied than have no other choice than take the patient to the OR clean this whole area up, located the AV fistula and ligate as well as repaired the artery It looks more and more like the lateral option will be the choice 09/27/16 Left groin hematoma much smaller and dissolving after aspiration about 40 cc of fluid Still palpable as a smaller mass with much less pressure Patient should be now out of bed and worked with PT OT and I do not believe she will need any further surgery Will follow Objective: Vital Signs Date Time Temp Pulse Resp B/P Pulse Ox O2 Delivery O2 Flow Rate FiO2 09/27/16 16:00 97.6 67 18 95/49 99 09/27/16 12:00 97.4 69 16 116/63 100 09/27/16 08:00 97.7 90 18 98/49 99 09/27/16 06:15 18 09/27/16 04:25 97.1 70 20 113/59 100 09/27/16 04:07 96.6 71 20 94/49 100 09/27/16 04:00 96.6 71 20 94/49 100 09/27/16 00:00 100.4 79 18 104/52 95 09/26/16 22:19 20 09/26/16 20:00 98.9 80 20 109/55 96 09/26/16 20:00 83 Labs: Laboratory Tests Test 09/27/16 13:46 White Blood Count 13.7 TH/MM3 (4.0-11.0) Red Blood Count 3.07 MIL/MM3 (4.00-5.30) Hemoglobin 9.3 GM/DL (11.6-15.3) Hematocrit 27.9 % (35.0-46.0) Mean Corpuscular Volume 90.9 FL (80.0-100.0) Mean Corpuscular Hemoglobin 30.2 PG (27.0-34.0) Mean Corpuscular Hemoglobin 33.2 % Concent (32.0-36.0) Red Cell Distribution Width 16.7 % (11.6-17.2) Platelet Count 133 TH/MM3 (150-450) Mean Platelet Volume 8.3 FL (7.0-11.0) Neutrophils (%) (Auto) 70.9 % (16.0-70.0) Lymphocytes (%) (Auto) 17.8 % (9.0-44.0) Monocytes (%) (Auto) 8.9 % (0.0-8.0) Eosinophils (%) (Auto) 1.9 % (0.0-4.0) Basophils (%) (Auto) 0.5 % (0.0-2.0) Neutrophils # (Auto) 9.7 TH/MM3 (1.8-7.7) Lymphocytes # (Auto) 2.4 TH/MM3 (1.0-4.8) Monocytes # (Auto) 1.2 TH/MM3 (0-0.9) Eosinophils # (Auto) 0.3 TH/MM3 (0-0.4) Basophils # (Auto) 0.1 TH/MM3 (0-0.2) CBC Comment DIFF FINAL Differential Comment Result Diagram: 09/27/16 1346 09/26/16 0505 Selwyn Muir MD September 27, 2016 17:07
[2016-09-27] MEDS: ONDANSETRON HCL 4 MG/2 ML VIAL IVP PRN (17:15)
[2016-09-27 17:28] LABS: INTERNATIONAL NORMALIZED RATIO 1.4 RATIO; PROTHROMBIN TIME - PATIENT 16.2 SEC (9.8-11.6)
[2016-09-28] VITALS (7 sets, daily range): BP systolic 100–127; BP diastolic 52–66; PULSE 68–87; RESP 16–20; TEMP 97–99.5; O2SAT 98–100
[2016-09-28] MEDS: CARISOPRODOL 350 MG TAB PO PRN ×2 (00:52→13:01)
[2016-09-28] MEDS: HYDROmorphone HCL PF 1 MG/ML VIAL IV PUSH PRN ×8 (00:53→22:53)
[2016-09-28] MEDS: CEFEPIME INJ 2,000 MG in SODIUM CHLORIDE 0.9% INJ 100 ML IV SCH ×2 (04:05→16:48)
[2016-09-28 05:21] LABS: AUTOMATED NEUTROPHIL # 6.9 TH/MM3 (1.8-7.7); BASOPHIL % 0.4 % (0.0-2.0); EOSINOPHIL # 0.2 TH/MM3 (0-0.4); EOSINOPHIL % 2.1 % (0.0-4.0); HEMATOCRIT 25.1 % (35.0-46.0); HEMO FLAGS DIFF FINAL; LYMPHOCYTE # 2.3 TH/MM3 (1.0-4.8); MEAN CELL VOLUME 91.4 FL (80.0-100.0); MEAN CORPUSCULAR HEMOGLOBIN 30.9 PG (27.0-34.0); MEAN CORPUSCULAR HGB CONC 33.8 % (32.0-36.0); MONO % 8.3 % (0.0-8.0); NEUT % 67.2 % (16.0-70.0); PLATELET COUNT 108 TH/MM3 (150-450); RED BLOOD COUNT 2.75 MIL/MM3 (4.00-5.30); RED CELL DISTRIBUTION WIDTH 16.6 % (11.6-17.2); WHITE BLOOD COUNT 10.2 TH/MM3 (4.0-11.0)
[2016-09-28 05:32] LABS: INTERNATIONAL NORMALIZED RATIO 1.3 RATIO
[2016-09-28 05:47] LABS: BICARBONATE 32.2 MEQ/L (21.0-32.0); MAGNESIUM 1.6 MG/DL (1.5-2.5); POTASSIUM 3.7 MEQ/L (3.5-5.1)
[2016-09-28] MEDS: INSULIN ASPART SUPPLEMENTAL SCALE SQ SCH ×4 (06:34→19:48)
[2016-09-28] MEDS: SODIUM CHLORIDE 0.9% FLUSH 10 ML FLUSH IV FLUSH SCH ×2 (08:56→19:48)
[2016-09-28] MEDS: RESP: ALBUTEROL 2.5 MG/IPRATROPIUM 0.5 MG NEB (PRN) NEB (08:56)
[2016-09-28] MEDS: DIGOXIN 0.125 MG TAB PO SCH (08:57)
[2016-09-28] MEDS: TIOTROPIUM BROMIDE 18 MCG INH INH SCH (08:57)
[2016-09-28] MEDS: PANTOPRAZOLE SOD 40 MG DELAYED RELEASE TAB PO SCH (08:57)
[2016-09-28] MEDS: SPIRONOLACTONE 25 MG TAB PO SCH ×2 (08:57→17:54)
[2016-09-28] MEDS: ATENOLOL 50 MG TAB PO SCH (08:57)
[2016-09-28] MEDS: CALCIUM/VITAMIN D 250 MG/125 U TAB PO SCH ×2 (08:57→19:47)
[2016-09-28] MEDS: POTASSIUM CHLORIDE 20 MEQ CONTROLLED RELEASE TAB PO SCH (08:58)
[2016-09-28] MEDS: buPROPion HCL 100 MG TAB PO SCH ×2 (08:58→19:47)
[2016-09-28] MEDS: BUMETANIDE 1 MG TAB PO SCH ×2 (08:58→19:47)
[2016-09-28] MEDS: SENNOSIDES 8.6 MG TAB PO PRN (09:06)
[2016-09-28] MEDS: TRIAMCINOLONE ACETONIDE 0.1% OINT 15 GM TUBE TOPICAL SCH ×2 (09:07→19:49)
--- NOTE | 2016-09-28 11:04 | HHI.PR ---
Subjective Remarks Follow up hematoma, anemia. Patient reports less pain in the left groin. No dyspnea, chest pain, nausea, vomiting. Still feeling pressure in left groin under the bandage. Objective Vitals Vital Signs Date Time Temp Pulse Resp B/P Pulse Ox O2 Delivery O2 Flow Rate FiO2 09/28/16 08:56 100 21 09/28/16 08:00 98.1 73 16 106/59 99 09/28/16 04:32 97.0 68 18 109/60 98 09/28/16 00:00 99.0 68 17 102/66 100 09/27/16 20:00 99.7 77 16 111/59 98 09/27/16 16:00 97.6 67 18 95/49 99 09/27/16 12:00 97.4 69 16 116/63 100 I/O 09/27/16 09/27/16 09/27/16 09/28/16 09/28/16 09/28/16 07:00 15:00 23:00 07:00 15:00 23:00 Intake Total 336 ml 1292 ml 480 ml 930 ml 60 ml Output Total 650 ml 1500 ml 2000 ml Balance -314 ml 1292 ml -1020 ml -1070 ml 60 ml Intake Oral 0 ml 480 ml 480 ml 60 ml IV Total 336 ml 1042 ml 450 ml Packed Cells 250 ml Output Urine Total 650 ml 1500 ml 2000 ml # Voids 5 # Bowel Movements 0 Result Diagram: 09/28/16 0430 09/28/16 0430 Imaging Last Impressions Abscess Drainage X-Ray 09/26/16 0000 Signed Impressions: Service Date/Time: Monday, September 26, 2016 13:56 - CONCLUSION: 1. Uncomplicated left groin hematoma drainage as above. 2. On ultrasound evaluation, the patient appears to have a very small connection between the common femoral artery and the adjacent greater saphenous vein. Findings were discussed with Dr. Muir from vascular surgery. Juan Logan MD Lower Extremity Ultrasound 09/25/16 0000 Signed Impressions: Service Date/Time: Sunday, September 25, 2016 12:51 - CONCLUSION: 1. Pseudoaneurysm and hematoma. Min Mae MD Chest X-Ray 09/23/16 0000 Signed Impressions: Service Date/Time: Friday, September 23, 2016 20:08 - CONCLUSION: No evidence of acute cardiopulmonary disease or significant change. Dmitry Gallo MD Objective Remarks General: No acute distress. Heart: Regular rate and rhythm. No murmur. Lungs: Clear to auscultation bilaterally. No wheezes, rales, or rhonchi. Breathing is nonlabored. Abdomen: Soft, nontender, nondistended. Extremities: No lower extremity edema. Left lower extremity with varicose veins. Left upper leg with swelling, ecchymosis. Tenderness improving. Psych: Alert and oriented. Procedures 09/26/16 ultrasound-guided drainage of left groin hematoma Urinary Catheter: No Vascular Central Line Catheter: No A/P Problem List: (1) Pseudoaneurysm following procedure ICD Code: I99.8 Status: Acute (2) DM (diabetes mellitus) ICD Code: E11.9 Status: Chronic (3) GERD (gastroesophageal reflux disease) ICD Code: K21.9 Status: Chronic (4) A-fib ICD Code: I48.91 Status: Chronic (5) HTN (hypertension) ICD Code: I10 Status: Chronic (6) CKD (chronic kidney disease) stage 3, GFR 30-59 ml/min ICD Code: N18.3 Status: Chronic Assessment and Plan 1. Left groin pseudoaneurysm following cardiac procedure: Continuing to have significant pain. Appreciate vascular surgery recommendations. Per Dr. Rowell. No need for intervention at this time. Coumadin restarted per cardiology recommendations. Now on hold secondary to anemia, hematoma. Monitor H&H. Transfuse if necessary. Re-consult cardiology for recommendations regarding anticoagulation. 2. Hypertension: Blood pressure is better controlled. 3. Diabetes mellitus: Diet controlled. Monitor Accu-Cheks and cover with sliding scale insulin. 4. COPD, asthma: Oxygen, bronchodilators as needed. 5. History of hepatitis C: Outpatient follow-up. 6. Chronic kidney disease stage III: Stable. Monitor BUN, Creatinine. 7. History of atrial fibrillation: Appreciate cardiology recommendations. Coumadin on hold. INR is therapeutic today. 8. Fever, chest pain: CXR is negative. Blood cultures are negative so far. Continue antibiotics to cover for possible healthcare associated pneumonia. The patient reports that she has had multiple admissions in the past year for pneumonia. 9. Anemia: Patient has received 2 units PRBCs. Monitor H/H. 10. Thrombocytopenia: Platelets are decreasing. Patient has seen Dr. Armstrong for heme/onc in the past. 11. Hematoma, left groin: Status post percutaneous drainage by interventional radiology. Problem Qualifiers (1) DM (diabetes mellitus): David Hayes MD September 28, 2016 11:04
--- NOTE | 2016-09-28 18:57 | HHI.PR ---
Subjective Remarks Moving now. Less pain Objective Vital Signs Date Time Temp Pulse Resp B/P Pulse Ox O2 Delivery O2 Flow Rate FiO2 09/28/16 16:34 98.7 87 18 123/52 100 09/28/16 12:00 99.1 73 20 100/58 98 09/28/16 08:56 100 21 09/28/16 08:00 98.1 73 16 106/59 99 09/28/16 04:32 97.0 68 18 109/60 98 09/28/16 00:00 99.0 68 17 102/66 100 09/27/16 20:00 99.7 77 16 111/59 98 I/O 09/27/16 09/27/16 09/27/16 09/28/16 09/28/16 09/28/16 07:00 15:00 23:00 07:00 15:00 23:00 Intake Total 336 ml 1292 ml 480 ml 930 ml 395 ml Output Total 650 ml 1500 ml 2000 ml Balance -314 ml 1292 ml -1020 ml -1070 ml 395 ml Intake Oral 0 ml 480 ml 480 ml 60 ml IV Total 336 ml 1042 ml 450 ml 335 ml Packed Cells 250 ml Output Urine Total 650 ml 1500 ml 2000 ml # Voids 5 # Bowel Movements 0 Result Diagram: 09/28/16 0430 09/28/16 0430 Imaging Alert, fully oriented Lungs: ventilated Heart: S1, S2 regular, no gallop Abdomen: soft, no mass Ext: left inguinal area with resolving hematoma Last Impressions Abscess Drainage X-Ray 09/26/16 0000 Signed Impressions: Service Date/Time: Monday, September 26, 2016 13:56 - CONCLUSION: 1. Uncomplicated left groin hematoma drainage as above. 2. On ultrasound evaluation, the patient appears to have a very small connection between the common femoral artery and the adjacent greater saphenous vein. Findings were discussed with Dr. Muir from vascular surgery. Juan Logan MD Lower Extremity Ultrasound 09/25/16 0000 Signed Impressions: Service Date/Time: Sunday, September 25, 2016 12:51 - CONCLUSION: 1. Pseudoaneurysm and hematoma. Min Mae MD Chest X-Ray 09/23/16 0000 Signed Impressions: Service Date/Time: Friday, September 23, 2016 20:08 - CONCLUSION: No evidence of acute cardiopulmonary disease or significant change. Dmitry Gallo MD Current Medications Medications (Trade) Dose Ordered Sig/Maximilian Route Start Time Stop Time Status Last Admin (NS Flush) 2 ml UNSCH PRN IV FLUSH 09/22/16 19:30 09/22/16 20:44 (NS Flush) 2 ml BID IV FLUSH 09/22/16 21:00 09/27/16 19:34 (Tylenol) 650 mg Q4H PRN PO 09/22/16 19:30 (Zofran Inj) 4 mg Q6H PRN IVP 09/22/16 19:30 09/27/16 17:15 (Senokot) 17.2 mg Q12H PRN PO 09/22/16 19:30 09/28/16 09:06 (Narcan Inj) 0.4 mg UNSCH PRN IV 09/22/16 19:30 (D50w (Vial) Inj) 50 ml UNSCH PRN IV 09/22/16 19:30 (Glucagon Inj) 1 mg UNSCH PRN OTHER 09/22/16 19:30 Hydromorphone HCl 1 mg 1 mg Q3HR PRN IV PUSH 09/22/16 23:15 09/28/16 16:48 (D5W-NS 1000 ml Inj) 1,000 ml @ 42 mls/hr [id number] IV 09/23/16 07:30 09/27/16 12:44 (Tenormin) 50 mg DAILY PO 09/23/16 09:00 09/28/16 08:57 (Bumetanide) 1 mg BID PO 09/23/16 09:00 09/28/16 08:58 (Wellbutrin) 100 mg BID PO 09/23/16 09:00 09/28/16 08:58 (Soma) 350 mg BID PRN PO 09/23/16 07:45 09/28/16 13:01 (Bentyl) 20 mg TID PRN PO 09/23/16 07:45 (Lanoxin) 0.125 mg DAILY PO 09/23/16 09:00 09/28/16 08:57 ([place] 10-325 Mg) 1 tab Q6H PRN PO 09/23/16 07:45 (Ativan) 0.5 mg Q6H PRN PO 09/23/16 07:45 09/23/16 23:07 (Protonix) 40 mg DAILY PO 09/23/16 09:00 09/28/16 08:57 (KCl) 20 meq DAILY PO 09/23/16 09:00 09/28/16 08:58 (Aldactone) 25 mg BIDPC PO 09/23/16 09:00 09/28/16 17:54 (Spiriva Inh) 18 mcg DAILY INH 09/23/16 09:00 09/28/16 08:57 (Aristocort 0.1% Oint) 1 applic BID TOPICAL 09/23/16 09:00 09/28/16 09:07 (Oscal-D 250-125) 500 mg BID PO 09/23/16 09:00 09/28/16 08:57 (Zofran Odt) 4 mg Q6H PRN PO 09/23/16 08:30 09/23/16 23:08 (Coumadin) 5 mg DAILY@1600 PO 09/23/16 16:00 Hold 09/24/16 15:27 Nitroglycerin 0.4 mg 0.4 mg Q5M PRN SL 09/23/16 19:45 Hold (Maxipime Inj/NS Inj) 100 ml @ 200 mls/hr DAILY@04,16 IV 09/24/16 04:15 09/28/16 16:48 Assessment and Plan Problem List: (1) Atrial fibrillation, currently in sinus rhythm Status: Chronic Plan: In sinus rhythm (2) Pseudoaneurysm following procedure Status: Acute Plan: Hematoma resolving. Doing better Ambulating now Patient need to be anticoagulated Awaiting for Karon Hernandez MD September 28, 2016 18:57
[2016-09-28] MEDS: SODIUM CHLORIDE 0.9% FLUSH 10 ML FLUSH IV FLUSH PRN (22:54)
[2016-09-29] VITALS: BP 104/59; PULSE 72; RESP 18; TEMP 99.2; O2SAT 98
[2016-09-29] MEDS: CARISOPRODOL 350 MG TAB PO PRN ×2 (00:46→13:15)
[2016-09-29] MEDS: HYDROmorphone HCL PF 1 MG/ML VIAL IV PUSH PRN ×6 (02:58→22:51)
[2016-09-29] MEDS: CEFEPIME INJ 2,000 MG in SODIUM CHLORIDE 0.9% INJ 100 ML IV SCH ×2 (02:58→16:43)
[2016-09-29] MEDS: RESP: ALBUTEROL 2.5 MG/IPRATROPIUM 0.5 MG NEB (PRN) NEB (03:17)
[2016-09-29 04:00] VITALS: BP 117/56; PULSE 76; RESP 20; TEMP 98.7; O2SAT 98
[2016-09-29 05:34] LABS: BASOPHIL % 0.4 % (0.0-2.0); EOSINOPHIL # 0.2 TH/MM3 (0-0.4); HEMATOCRIT 27.9 % (35.0-46.0); HEMO FLAGS DIFF FINAL; LYMPH % 19.9 % (9.0-44.0); LYMPHOCYTE # 2.3 TH/MM3 (1.0-4.8); MEAN CELL VOLUME 92.5 FL (80.0-100.0); MEAN CORPUSCULAR HEMOGLOBIN 30.5 PG (27.0-34.0); MONO % 7.4 % (0.0-8.0); NEUT % 70.3 % (16.0-70.0); PLATELET COUNT 130 TH/MM3 (150-450); RED BLOOD COUNT 3.02 MIL/MM3 (4.00-5.30); RED CELL DISTRIBUTION WIDTH 16.4 % (11.6-17.2); WHITE BLOOD COUNT 11.4 TH/MM3 (4.0-11.0)
[2016-09-29 05:47] LABS: APTT (PATIENT) 29.1 SEC (24.3-30.1); INTERNATIONAL NORMALIZED RATIO 1.1 RATIO
--- NOTE | 2016-09-29 06:09 | MB ---
cc: MONIQUE ESTRADA M.D. DATE OF CONSULTATION September 28, [address] Hayes REASON FOR CONSULTATION Hematology was consulted to render opinion regarding patient with worsening thrombocytopenia. HISTORY OF PRESENT ILLNESS The patient is a very pleasant 66-year-old female with history of hepatitis C, cirrhosis, chronic anemia and thrombocytopenia who presented to hospital after she developed a pseudoaneurysm in her left groin. She had the atrial Watchman device placed last Monday. She developed pain in the left groin the day after she came to the hospital and CT showed a pseudoaneurysm. Subsequent ultrasound showed that the aneurysm was clotted and no intervention was needed. She had persistent pain, underwent aspiration of the hematoma two days ago and 35 cc of blood was removed. On presentation her platelet count was 129,000. It has been fluctuating around 130,000. Today it trended down to 108,000. She has no other bleeding anywhere else. Her hemoglobin did drop down to 7.5 and she received 2 units of blood yesterday. She denies any fever or chills. She has no chest pain or palpitation. Denies shortness of breath or cough. Denies any nausea, vomiting, diarrhea, abdominal pain. No melena or hematochezia. PAST MEDICAL HISTORY 1. 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 Last chemotherapy was in May 2015. 2. Hypertension. 3. Diabetes mellitus. 4. Hepatitis C. 5. Cirrhosis diagnosed in 2006 by biopsy. 6. Congestive heart failure. 7. COPD/asthma. 8. Chronic kidney disease. 9. Chronic iron deficiency anemia. 10. Thrombocytopenia. 11. Chronic GI bleed. 12. Ulcerative colitis. PAST SURGICAL HISTORY 1. Hernia repair. 2. Total hysterectomy. 3. Left knee arthroscopic surgery. 4. Cholecystectomy. 5. Colposcopy. 6. D&C. 7. Watchman device placement. FAMILY HISTORY Noncontributory. SOCIAL HISTORY Denies tobacco or alcohol use. ALLERGIES Augmentin. CAT DANDER. MESALAMINE. TAXOL. ZITHROMAX. CURRENT MEDICATIONS 1. Cefepime. 2. Atenolol. 3. Bumetanide. 4. Wellbutrin. 5. Digoxin. 6. Protonix. 7. Potassium. 8. Aldactone. 9. Spiriva.. 10. Triamcinolone cream. 11. Calcium. 12. Vitamin D. REVIEW OF SYSTEMS CONSTITUTIONAL: Negative. EYES: Negative. ENT: Negative. CARDIOVASCULAR: As above. RESPIRATORY: Negative. GI: No nausea, vomiting, diarrhea, abdominal pain. No melena or hematochezia. : Denies dysuria, hematuria. MUSCULOSKELETAL: Negative. Pathology as above. ENDOCRINE: Negative. DERMATOLOGY: Negative. PSYCHIATRIC: Negative. NEUROLOGIC: Negative. PHYSICAL EXAMINATION VITAL SIGNS: Temperature afebrile, blood pressure 123/52, O2 saturation 100% on room air. GENERAL: She is alert and oriented x 3, in no acute distress. HEENT: Atraumatic, normocephalic. Pupils equal, round and reactive to light. Extraocular muscles intact. No scleral icterus. Oropharynx - dry mucosa. No lesion or thrush or mucositis. NECK: No thyromegaly. No palpable masses. LYMPHATICS: No palpable cervical, clavicular, axillary or enlarged lymph nodes. CARDIOVASCULAR: Regular S1, S2. Normal. LUNGS: Clear to auscultation, without wheezing. ABDOMEN: Soft, nontender. Cannot palpate liver or spleen. EXTREMITIES: No cyanosis, no clubbing. No significant edema. SKIN: Left groin hematoma noted. Pressure dressings noted. She has significant ecchymosis tracking down to her posterior thigh. NEUROLOGIC: Exam nonfocal. LABORATORY DATA Reviewed. ASSESSMENT 1. Thrombocytopenia. I think she has acute on chronic thrombocytopenia. She has history of thrombocytopenia due to hepatitis C cirrhosis. Her platelet count has fluctuated. She developed significant thrombocytopenia every time she comes into the hospital. This time she came in with a platelet count of 129,000. Today it trended down to 108,000. I think the further drop in platelet count is due to the hematoma and platelet consumption. I do not think this is primary bone marrow disorder. She has had baseline mild thrombocytopenia due to hepatitis C cirrhosis. I am going to check a DIC panel. Recommend continue to monitor the CBC for now. 2. Anemia. She has a history of iron deficiency anemia due to intermittent GI bleed. She had good response to iron supplement. She stated her hemoglobin was normal prior to her recent procedure. Hemoglobin has dropped down to 7.5 because of the hematoma. She had 2 units of packed red blood cell transfusion yesterday. Continue to monitor for now. 3. History of fallopian tube cancer, Stage IV. She has been seeing Dr. Starks. She completed chemotherapy in May 2015 with a very good response. She had recent followup with Dr. Starks; she remains in remission. 4. Hepatitis C, cirrhosis diagnosed in 2006 by liver biopsy. She is supposed to start treatment in the near future. 5. Ulcerative colitis. 6. Chronic GI bleed. 7. Chronic kidney disease. 8. COPD. 9. Diabetes mellitus. 10. Hypertension. RECOMMENDATIONS 1. Check DIC panel. 2. Monitor CBC. 3. Transfuse as needed to keep her hemoglobin above 8. 4. No need for platelet transfusion at this time. Thank you Dr. Hayes for asking me to see this patient. MD GUERO Euceda/BENJAMÍN /6:03 PM /5:50 AM VONDA
[2016-09-29 06:19] LABS: BICARBONATE 32.6 MEQ/L (21.0-32.0); POTASSIUM 3.6 MEQ/L (3.5-5.1)
[2016-09-29] MEDS: INSULIN ASPART SUPPLEMENTAL SCALE SQ SCH ×4 (06:31→21:00)
[2016-09-29 08:00] VITALS: BP 95/52; PULSE 77; RESP 16; TEMP 97.9; O2SAT 99
[2016-09-29] MEDS: SODIUM CHLORIDE 0.9% FLUSH 10 ML FLUSH IV FLUSH SCH ×2 (08:13→21:00)
[2016-09-29] MEDS: SPIRONOLACTONE 25 MG TAB PO SCH ×2 (08:14→18:31)
[2016-09-29] MEDS: ATENOLOL 50 MG TAB PO SCH (08:14)
[2016-09-29] MEDS: DIGOXIN 0.125 MG TAB PO SCH (08:15)
[2016-09-29] MEDS: POTASSIUM CHLORIDE 20 MEQ CONTROLLED RELEASE TAB PO SCH (08:16)
[2016-09-29] MEDS: CALCIUM/VITAMIN D 250 MG/125 U TAB PO SCH ×2 (08:16→21:30)
[2016-09-29] MEDS: TRIAMCINOLONE ACETONIDE 0.1% OINT 15 GM TUBE TOPICAL SCH ×2 (08:16→22:51)
[2016-09-29] MEDS: buPROPion HCL 100 MG TAB PO SCH ×2 (08:16→21:30)
[2016-09-29] MEDS: BUMETANIDE 1 MG TAB PO SCH ×2 (08:16→21:30)
[2016-09-29] MEDS: PANTOPRAZOLE SOD 40 MG DELAYED RELEASE TAB PO SCH (08:16)
[2016-09-29] MEDS: TIOTROPIUM BROMIDE 18 MCG INH INH SCH (08:16)
[2016-09-29] MEDS: DEXT 5%-NACL 0.9% 1000 ML INJ 1,000 ML IV SCH (08:18)
[2016-09-29 12:00] VITALS: BP 104/55; PULSE 73; RESP 16; TEMP 98.1; O2SAT 97
--- NOTE | 2016-09-29 13:41 | PD.CAR.PN ---
CVT Progress Note Subjective/Hospital Course: 66 year old female with a small pseudoaneurysm of the left groin as a result of a transfemoral ablation 2 days ago Patient is a good candidate for thrombin obliteration of the pseudoaneurysm and have spoken to Dr. Nitin Heaton interventional radiology We will proceed with the same tomorrow morning Patient should be off anticoagulants 09/23/16 Patient underwent today vascular ultrasound and was initially planned to undergo thrombin ablation of the pseudoaneurysm. The ultrasound reveals pseudo-aneurysm to be clotted off completely and therefore there is no need for additional thrombin injection. Patient can be placed back on anticoagulants and discharged as per medicine Recommend warm compresses to the groin for there is a 3 cm hematoma here surrounding the area but this is going to go away on its own No further local therapy is needed 09/25/16 Patient some more pain in her leg however this is due to the small hematoma in the groin No surgical therapy is indicated at this time Warm compresses and from surgical point patient can be discharged any time 09/26/16 Left groin hematoma measured about 7.5 cm in diameter and fairly firm and on ultrasound yesterday does not show any connection to the actual active circulation The pseudoaneurysm itself is clotted but there may be some connection between the artery and the vein in the form of a small arteriovenous fistula to the greater saphenous vein This occasionally occurs in situations where needle passes through the vein into the artery and then every catheter that passes through essentially widens this leaving AV fistula behind Most of these will clotted off under own however this is a new finding 5 days out I discussed this with interventional radiology and the patient In the best case scenario ligament aspirate the hematoma and that is it. If patient doesn't get relief from this or hematoma is not liquefied than have no other choice than take the patient to the OR clean this whole area up, located the AV fistula and ligate as well as repaired the artery It looks more and more like the lateral option will be the choice 09/27/16 Left groin hematoma much smaller and dissolving after aspiration about 40 cc of fluid Still palpable as a smaller mass with much less pressure Patient should be now out of bed and worked with PT OT and I do not believe she will need any further surgery Will follow 09/29/16 Groin soft and patient is ambulating without difficulty although still and some pain The hematoma of the groin is almost completely resolved at this time is barely palpable Patient can be placed back on anticoagulants from my point any time Follow-up with my office in about 3-4 weeks Objective: Vital Signs Date Time Temp Pulse Resp B/P Pulse Ox O2 Delivery O2 Flow Rate FiO2 09/29/16 12:00 98.1 73 16 104/55 97 09/29/16 08:00 97.9 77 16 95/52 99 09/29/16 04:00 98.7 76 20 117/56 98 09/29/16 00:00 99.2 72 18 104/59 98 09/28/16 20:00 99.5 72 18 127/64 100 09/28/16 16:34 98.7 87 18 123/52 100 Labs: Laboratory Tests Test 09/29/16 04:22 White Blood Count 11.4 TH/MM3 (4.0-11.0) Red Blood Count 3.02 MIL/MM3 (4.00-5.30) Hemoglobin 9.2 GM/DL (11.6-15.3) Hematocrit 27.9 % (35.0-46.0) Mean Corpuscular Volume 92.5 FL (80.0-100.0) Mean Corpuscular Hemoglobin 30.5 PG (27.0-34.0) Mean Corpuscular Hemoglobin 33.0 % Concent (32.0-36.0) Red Cell Distribution Width 16.4 % (11.6-17.2) Platelet Count 130 TH/MM3 (150-450) Mean Platelet Volume 8.6 FL (7.0-11.0) Neutrophils (%) (Auto) 70.3 % (16.0-70.0) Lymphocytes (%) (Auto) 19.9 % (9.0-44.0) Monocytes (%) (Auto) 7.4 % (0.0-8.0) Eosinophils (%) (Auto) 2.0 % (0.0-4.0) Basophils (%) (Auto) 0.4 % (0.0-2.0) Neutrophils # (Auto) 8.0 TH/MM3 (1.8-7.7) Lymphocytes # (Auto) 2.3 TH/MM3 (1.0-4.8) Monocytes # (Auto) 0.8 TH/MM3 (0-0.9) Eosinophils # (Auto) 0.2 TH/MM3 (0-0.4) Basophils # (Auto) 0.0 TH/MM3 (0-0.2) CBC Comment DIFF FINAL Differential Comment Prothrombin Time 12.0 SEC (9.8-11.6) Prothromb Time International 1.1 RATIO Ratio Activated Partial 29.1 SEC Thromboplast Time (24.3-30.1) Fibrinogen 486 mg/dL (227-377) Sodium Level 138 MEQ/L (136-145) Potassium Level 3.6 MEQ/L (3.5-5.1) Chloride Level 98 MEQ/L (98-107) Carbon Dioxide Level 32.6 MEQ/L (21.0-32.0) Anion Gap 7 MEQ/L (5-15) Blood Urea Nitrogen 28 MG/DL (7-18) Creatinine 1.15 MG/DL (0.50-1.00) Estimat Glomerular Filtration 47 ML/MIN (>89) Rate Random Glucose 129 MG/DL (74-106) Calcium Level 8.1 MG/DL (8.5-10.1) Result Diagram: 09/29/16 0422 09/29/16 0422 Selwyn Muir MD September 29, 2016 13:41
--- NOTE | 2016-09-29 13:42 | HHI.PR ---
Subjective Remarks Follow up hematoma, thrombocytopenia, anemia. Patient states that her pain is improving, but she is still painful with movement/ambulation. No reported bleeding. Denies chest pain. Still with occasional dyspnea, cough. Objective Vitals Vital Signs Date Time Temp Pulse Resp B/P Pulse Ox O2 Delivery O2 Flow Rate FiO2 09/29/16 12:00 98.1 73 16 104/55 97 09/29/16 08:00 97.9 77 16 95/52 99 09/29/16 04:00 98.7 76 20 117/56 98 09/29/16 00:00 99.2 72 18 104/59 98 09/28/16 20:00 99.5 72 18 127/64 100 09/28/16 16:34 98.7 87 18 123/52 100 I/O 09/28/16 09/28/16 09/28/16 09/29/16 09/29/16 09/29/16 07:00 15:00 23:00 07:00 15:00 23:00 Intake Total 930 ml 395 ml 240 ml 670 ml Output Total 2000 ml 650 ml 1425 ml Balance -1070 ml 395 ml -410 ml -755 ml Intake Oral 480 ml 60 ml 240 ml 240 ml IV Total 450 ml 335 ml 430 ml Output Urine Total 2000 ml 650 ml 1425 ml # Bowel Movements 0 1 Result Diagram: 09/29/1642109/29/16421 Imaging Last Impressions Abscess Drainage X-Ray 09/26/16 0000 Signed Impressions: Service Date/Time: Monday, September 26, 2016 13:56 - CONCLUSION: 1. Uncomplicated left groin hematoma drainage as above. 2. On ultrasound evaluation, the patient appears to have a very small connection between the common femoral artery and the adjacent greater saphenous vein. Findings were discussed with Dr. Muir from vascular surgery. Juan Logan MD Lower Extremity Ultrasound 09/25/16 0000 Signed Impressions: Service Date/Time: Sunday, September 25, 2016 12:51 - CONCLUSION: 1. Pseudoaneurysm and hematoma. Min Mae MD Chest X-Ray 09/23/16 0000 Signed Impressions: Service Date/Time: Friday, September 23, 2016 20:08 - CONCLUSION: No evidence of acute cardiopulmonary disease or significant change. Dmitry Gallo MD Objective Remarks General: No acute distress. Heart: Regular rate and rhythm. No murmur. Lungs: Clear to auscultation bilaterally. No wheezes, rales, or rhonchi. Breathing is nonlabored. Abdomen: Soft, nontender, nondistended. Extremities: No lower extremity edema. Left lower extremity with varicose veins. Left upper leg with swelling, ecchymosis. Tenderness improving. Psych: Alert and oriented. Procedures 09/26/16 ultrasound-guided drainage of left groin hematoma Urinary Catheter: No Vascular Central Line Catheter: No A/P Problem List: (1) Pseudoaneurysm following procedure ICD Code: I99.8 Status: Acute (2) DM (diabetes mellitus) ICD Code: E11.9 Status: Chronic (3) A-fib ICD Code: I48.91 Status: Chronic (4) HTN (hypertension) ICD Code: I10 Status: Chronic (5) CKD (chronic kidney disease) stage 3, GFR 30-59 ml/min ICD Code: N18.3 Status: Chronic (6) Groin hematoma ICD Code: S30.1XXA Status: Acute (7) Atrial fibrillation, currently in sinus rhythm ICD Code: I48.91 Status: Chronic Assessment and Plan 1. Left groin pseudoaneurysm following cardiac procedure: Continuing to have significant pain. Appreciate vascular surgery recommendations. Per Dr. Rowell, no need for intervention at this time. Coumadin restarted per cardiology recommendations. Now on hold secondary to anemia, hematoma. Monitor H&H. Transfuse if necessary. Cardiology recommends restarting anticoagulation. Appreciate hematology recommendations. 2. Hypertension: Blood pressure is better controlled. 3. Diabetes mellitus: Diet controlled. Monitor Accu-Cheks and cover with sliding scale insulin. 4. COPD, asthma: Oxygen, bronchodilators as needed. 5. History of hepatitis C: Outpatient follow-up. 6. Chronic kidney disease stage III: Stable. Monitor BUN, Creatinine. 7. History of atrial fibrillation: Appreciate cardiology recommendations. Coumadin on hold. INR is therapeutic today. 8. Fever, chest pain: CXR is negative. Blood cultures are negative so far. Continue antibiotics to cover for possible healthcare associated pneumonia. The patient reports that she has had multiple admissions in the past year for pneumonia. 9. Anemia: Patient has received 2 units PRBCs. Monitor H/H. 10. Thrombocytopenia: Platelets are slightly improved. Patient has chronic thrombocytopenia. Appreciate hematology recommendations. 11. Hematoma, left groin: Status post percutaneous drainage by interventional radiology. Okay to restart anticoagulation per vascular surgery. Problem Qualifiers (1) DM (diabetes mellitus): David Hayes MD September 29, 2016 13:42
[2016-09-29 16:00] VITALS: BP 108/59; PULSE 81; RESP 16; TEMP 97.1; O2SAT 100
[2016-09-29] MEDS: WARFARIN SOD 5 MG TAB PO SCH (16:43)
--- NOTE | 2016-09-29 17:52 | PD.ONC.PN ---
Subjective Subjective Remarks Left groin pain stable. No CP/SOB. No abdominal pain. Objective Data Date Time Temp Pulse Resp B/P Pulse Ox O2 Delivery O2 Flow Rate FiO2 09/29/16 16:00 97.1 81 16 108/59 100 09/29/16 12:00 98.1 73 16 104/55 97 09/29/16 08:00 97.9 77 16 95/52 99 09/29/16 04:00 98.7 76 20 117/56 98 09/29/16 00:00 99.2 72 18 104/59 98 09/28/16 20:00 99.5 72 18 127/64 100 09/29/16 09/29/16 09/29/16 07:00 15:00 23:00 Intake Total 670 ml 600 ml 428 ml Output Total 1425 ml 650 ml Balance -755 ml -50 ml 428 ml Result Diagram: 09/29/16 0422 09/29/16 0422 Laboratory Results Laboratory Tests Test 09/29/16 04:22 White Blood Count 11.4 TH/MM3 Red Blood Count 3.02 MIL/MM3 Hemoglobin 9.2 GM/DL Hematocrit 27.9 % Mean Corpuscular Volume 92.5 FL Mean Corpuscular Hemoglobin 30.5 PG Mean Corpuscular Hemoglobin 33.0 % Concent Red Cell Distribution Width 16.4 % Platelet Count 130 TH/MM3 Mean Platelet Volume 8.6 FL Neutrophils (%) (Auto) 70.3 % Lymphocytes (%) (Auto) 19.9 % Monocytes (%) (Auto) 7.4 % Eosinophils (%) (Auto) 2.0 % Basophils (%) (Auto) 0.4 % Neutrophils # (Auto) 8.0 TH/MM3 Lymphocytes # (Auto) 2.3 TH/MM3 Monocytes # (Auto) 0.8 TH/MM3 Eosinophils # (Auto) 0.2 TH/MM3 Basophils # (Auto) 0.0 TH/MM3 CBC Comment DIFF FINAL Differential Comment Prothrombin Time 12.0 SEC Prothromb Time International 1.1 RATIO Ratio Activated Partial 29.1 SEC Thromboplast Time Fibrinogen 486 mg/dL Sodium Level 138 MEQ/L Potassium Level 3.6 MEQ/L Chloride Level 98 MEQ/L Carbon Dioxide Level 32.6 MEQ/L Anion Gap 7 MEQ/L Blood Urea Nitrogen 28 MG/DL Creatinine 1.15 MG/DL Estimat Glomerular Filtration 47 ML/MIN Rate Random Glucose 129 MG/DL Calcium Level 8.1 MG/DL Administered Medications Medications (Trade) Dose Ordered Sig/Maximilina Route PRN Reason Start Time Stop Time Status Last Admin Dose Admin Sodium Chloride (NS Flush) 2 ml UNSCH PRN IV FLUSH FLUSH AFTER USING IV ACCESS 09/22/16 19:30 09/28/16 22:54 Sodium Chloride (NS Flush) 2 ml BID IV FLUSH 09/22/16 21:00 09/28/16 19:48 Ondansetron HCl (Zofran Inj) 4 mg Q6H PRN IVP NAUSEA OR VOMITING 09/22/16 19:30 09/27/16 17:15 Sennosides (Senokot) 17.2 mg Q12H PRN PO CONSTIPATION 09/22/16 19:30 09/28/16 09:06 Hydromorphone HCl 1 mg 1 mg Q3HR PRN IV PUSH pain >5 09/22/16 23:15 09/29/16 13:12 Dextrose/Sodium Chloride (D5W-NS 1000 ml Inj) 1,000 ml @ 42 mls/hr [id number] IV 09/23/16 07:30 09/29/16 08:18 Atenolol (Tenormin) 50 mg DAILY PO 09/23/16 09:00 09/28/16 08:57 Bumetanide (Bumetanide) 1 mg BID PO 09/23/16 09:00 09/29/16 08:16 Bupropion HCl (Wellbutrin) 100 mg BID PO 09/23/16 09:00 09/29/16 08:16 Carisoprodol (Soma) 350 mg BID PRN PO MUSCLE SPASM 09/23/16 07:45 09/29/16 13:15 Digoxin (Lanoxin) 0.125 mg DAILY PO 09/23/16 09:00 09/29/16 08:15 Lorazepam (Ativan) 0.5 mg Q6H PRN PO ANXIETY 09/23/16 07:45 09/23/16 23:07 Pantoprazole Sodium (Protonix) 40 mg DAILY PO 09/23/16 09:00 09/29/16 08:16 Potassium Chloride (KCl) 20 meq DAILY PO 09/23/16 09:00 09/29/16 08:16 Spironolactone (Aldactone) 25 mg BIDPC PO 09/23/16 09:00 09/28/16 17:54 Tiotropium [place] (Spiriva Inh) 18 mcg DAILY INH 09/23/16 09:00 09/29/16 08:16 Triamcinolone Acetonide (Aristocort 0.1% Oint) 1 applic BID TOPICAL 09/23/16 09:00 09/29/16 08:16 Calcium/Vitamin D (Oscal-D 250-125) 500 mg BID PO 09/23/16 09:00 09/29/16 08:16 Ondansetron HCl (Zofran Odt) 4 mg Q6H PRN PO NAUSEA OR VOMITING 09/23/16 08:30 09/23/16 23:08 Warfarin Sodium 5 mg 5 mg DAILY@1600 PO 09/23/16 16:00 09/29/16 16:43 Cefepime HCl/ Sodium Chloride (Maxipime Inj/NS Inj) 100 ml @ 200 mls/hr DAILY@04,16 IV 09/24/16 04:15 09/29/16 16:43 Objective Remarks GENERAL: Well-nourished, well-developed patient. SKIN: Warm and dry. HEAD: Normocephalic. EYES: No scleral icterus. No injection or drainage. NECK: Supple, trachea midline. No JVD or lymphadenopathy. LYMPHATIC: No adenopathy. CARDIOVASCULAR: Regular rate and rhythm without murmurs. RESPIRATORY: Breath sounds equal bilaterally. No accessory muscle use. GASTROINTESTINAL: Abdomen soft, non-tender, nondistended. EXTREMITIES: No cyanosis, or edema. Left groin posterior thigh hematoma. MUSCULOSKELETAL: Adequate muscle tone. NEUROLOGICAL: No obvious focal deficit. Awake, alert, and oriented x3. PSYCHIATRIC: Appropriate mood and affect; insight and judgment normal. Assessment/Plan Assessment 1. Thrombocytopenia. I think she has acute on chronic thrombocytopenia. She has history of thrombocytopenia due to hepatitis C cirrhosis. Her platelet count has fluctuated. She developed significant thrombocytopenia every time she comes into the hospital. This time she came in with a platelet count of 129,000. Today it trended down to 108,000. I think the further drop in platelet count is due to the hematoma and platelet consumption. I do not think this is primary bone marrow disorder. She has had baseline mild thrombocytopenia due to hepatitis C cirrhosis. 09/29 No apparent DIC. Platelet trended up to 130 which may be her baseline. 2. Anemia. She has a history of iron deficiency anemia due to intermittent GI bleed. She had good response to iron supplement. She stated her hemoglobin was normal prior to her recent procedure. Hemoglobin has dropped down to 7.5 because of the hematoma. She had 2 units of packed red blood cell transfusion 09/27. 09/29 hgb stable. 3. History of fallopian tube cancer, Stage IV. She has been seeing Dr. Starks. She completed chemotherapy in May 2015 with a very good response. She had recent followup with Dr. Starks; she remains in remission. 4. Hepatitis C, cirrhosis diagnosed in 2006 by liver biopsy. She is supposed to start treatment in the near future. Plan Plan: 1. Monitor CBC. 2. Transfuse as needed to keep her hemoglobin above 8. 3. Anticoagulation per cardiology. Jose Armstrong MD September 29, 2016 17:51
[2016-09-29 20:00] VITALS: BP 114/55; PULSE 76; RESP 20; TEMP 100.2; O2SAT 99
[2016-09-29] MEDS: DOCUSATE SODIUM 100 MG CAP PO SCH (21:30)
[2016-09-30] VITALS: BP_SYST 102; BP_SYST 127; BP_DIAS 57; BP_DIAS 82; PULSE 77; PULSE 82; RESP 18; TEMP 98.4; TEMP 99.4; O2SAT 100; O2SAT 95
[2016-09-30 04:00] VITALS: BP 112/51; PULSE 71; RESP 18; TEMP 99.8; O2SAT 98
[2016-09-30] MEDS: CEFEPIME INJ 2,000 MG in SODIUM CHLORIDE 0.9% INJ 100 ML IV SCH (04:22)
[2016-09-30] MEDS: MUPIROCIN 2% OINT 22 GM TUBE TOPICAL SCH ×3 (04:22→21:19)
[2016-09-30] MEDS: HYDROmorphone HCL PF 1 MG/ML VIAL IV PUSH PRN ×2 (04:25→08:53)
[2016-09-30 04:59] LABS: PROTHROMBIN TIME - PATIENT 11.5 SEC (9.8-11.6)
[2016-09-30 05:08] LABS: BICARBONATE 31.1 MEQ/L (21.0-32.0); POTASSIUM 3.4 MEQ/L (3.5-5.1)
[2016-09-30 05:17] LABS: AUTOMATED NEUTROPHIL # 8.4 TH/MM3 (1.8-7.7); BASOPHIL % 0.4 % (0.0-2.0); EOSINOPHIL # 0.2 TH/MM3 (0-0.4); HEMATOCRIT 25.3 % (35.0-46.0); HEMO FLAGS DIFF FINAL; LYMPH % 21.4 % (9.0-44.0); LYMPHOCYTE # 2.5 TH/MM3 (1.0-4.8); MEAN CELL VOLUME 91.2 FL (80.0-100.0); MEAN CORPUSCULAR HEMOGLOBIN 31.1 PG (27.0-34.0); MEAN CORPUSCULAR HGB CONC 34.1 % (32.0-36.0); MONO % 5.6 % (0.0-8.0); NEUT % 70.6 % (16.0-70.0); PLATELET COUNT 114 TH/MM3 (150-450); RED BLOOD COUNT 2.78 MIL/MM3 (4.00-5.30); RED CELL DISTRIBUTION WIDTH 16.2 % (11.6-17.2); WHITE BLOOD COUNT 11.8 TH/MM3 (4.0-11.0)
[2016-09-30] MEDS: INSULIN ASPART SUPPLEMENTAL SCALE SQ SCH ×4 (06:42→22:43)
[2016-09-30] MEDS: DEXT 5%-NACL 0.9% 1000 ML INJ 1,000 ML IV SCH (06:52)
[2016-09-30 08:00] VITALS: BP 101/52; PULSE 78; RESP 15; TEMP 98.1; O2SAT 99
--- NOTE | 2016-09-30 08:18 | PD.ONC.PN ---
Subjective Subjective Remarks Left groin pain slightly better. No bleeding. Objective Data Date Time Temp Pulse Resp B/P Pulse Ox O2 Delivery O2 Flow Rate FiO2 09/30/16 04:00 99.8 71 18 112/51 98 09/30/16 00:00 99.4 82 18 127/82 100 09/29/16 20:00 100.2 76 20 114/55 99 09/29/16 16:00 97.1 81 16 108/59 100 09/29/16 12:00 98.1 73 16 104/55 97 09/30/16 09/30/16 09/30/16 07:00 15:00 23:00 Intake Total 566 ml Output Total 850 ml Balance -284 ml Result Diagram: 09/30/16 0406 09/30/16 0406 Laboratory Results Laboratory Tests Test 09/30/16 04:06 White Blood Count 11.8 TH/MM3 Red Blood Count 2.78 MIL/MM3 Hemoglobin 8.6 GM/DL Hematocrit 25.3 % Mean Corpuscular Volume 91.2 FL Mean Corpuscular Hemoglobin 31.1 PG Mean Corpuscular Hemoglobin 34.1 % Concent Red Cell Distribution Width 16.2 % Platelet Count 114 TH/MM3 Mean Platelet Volume 9.1 FL Neutrophils (%) (Auto) 70.6 % Lymphocytes (%) (Auto) 21.4 % Monocytes (%) (Auto) 5.6 % Eosinophils (%) (Auto) 2.0 % Basophils (%) (Auto) 0.4 % Neutrophils # (Auto) 8.4 TH/MM3 Lymphocytes # (Auto) 2.5 TH/MM3 Monocytes # (Auto) 0.7 TH/MM3 Eosinophils # (Auto) 0.2 TH/MM3 Basophils # (Auto) 0.0 TH/MM3 CBC Comment DIFF FINAL Differential Comment Prothrombin Time 11.5 SEC Prothromb Time International 1.0 RATIO Ratio Sodium Level 137 MEQ/L Potassium Level 3.4 MEQ/L Chloride Level 99 MEQ/L Carbon Dioxide Level 31.1 MEQ/L Anion Gap 7 MEQ/L Blood Urea Nitrogen 26 MG/DL Creatinine 0.93 MG/DL Estimat Glomerular Filtration 60 ML/MIN Rate Random Glucose 131 MG/DL Calcium Level 7.9 MG/DL Administered Medications Medications (Trade) Dose Ordered Sig/Maximilian Route PRN Reason Start Time Stop Time Status Last Admin Dose Admin Sodium Chloride (NS Flush) 2 ml UNSCH PRN IV FLUSH FLUSH AFTER USING IV ACCESS 09/22/16 19:30 09/28/16 22:54 Sodium Chloride (NS Flush) 2 ml BID IV FLUSH 09/22/16 21:00 09/28/16 19:48 Ondansetron HCl (Zofran Inj) 4 mg Q6H PRN IVP NAUSEA OR VOMITING 09/22/16 19:30 09/27/16 17:15 Sennosides (Senokot) 17.2 mg Q12H PRN PO CONSTIPATION 09/22/16 19:30 09/28/16 09:06 Hydromorphone HCl 1 mg 1 mg Q3HR PRN IV PUSH pain >5 09/22/16 23:15 09/30/16 04:25 Dextrose/Sodium Chloride (D5W-NS 1000 ml Inj) 1,000 ml @ 42 mls/hr [id number] IV 09/23/16 07:30 09/30/16 06:52 Atenolol (Tenormin) 50 mg DAILY PO 09/23/16 09:00 09/28/16 08:57 Bumetanide (Bumetanide) 1 mg BID PO 09/23/16 09:00 09/29/16 21:30 Bupropion HCl (Wellbutrin) 100 mg BID PO 09/23/16 09:00 09/29/16 21:30 Carisoprodol (Soma) 350 mg BID PRN PO MUSCLE SPASM 09/23/16 07:45 09/29/16 13:15 Digoxin (Lanoxin) 0.125 mg DAILY PO 09/23/16 09:00 09/29/16 08:15 Lorazepam (Ativan) 0.5 mg Q6H PRN PO ANXIETY 09/23/16 07:45 09/23/16 23:07 Pantoprazole Sodium (Protonix) 40 mg DAILY PO 09/23/16 09:00 09/29/16 08:16 Potassium Chloride (KCl) 20 meq DAILY PO 09/23/16 09:00 09/29/16 08:16 Spironolactone (Aldactone) 25 mg BIDPC PO 09/23/16 09:00 09/29/16 18:31 Tiotropium [place] (Spiriva Inh) 18 mcg DAILY INH 09/23/16 09:00 09/29/16 08:16 Triamcinolone Acetonide (Aristocort 0.1% Oint) 1 applic BID TOPICAL 09/23/16 09:00 09/29/16 22:51 Calcium/Vitamin D (Oscal-D 250-125) 500 mg BID PO 09/23/16 09:00 09/29/16 21:30 Ondansetron HCl (Zofran Odt) 4 mg Q6H PRN PO NAUSEA OR VOMITING 09/23/16 08:30 09/23/16 23:08 Warfarin Sodium 5 mg 5 mg DAILY@1600 PO 09/23/16 16:00 09/29/16 16:43 Cefepime HCl/ Sodium Chloride (Maxipime Inj/NS Inj) 100 ml @ 200 mls/hr DAILY@04,16 IV 09/24/16 04:15 09/30/16 04:22 Docusate Sodium (Colace) 100 mg BID PO 09/29/16 21:00 09/29/16 21:30 Mupirocin (Bactroban 2% Oint) APPLY TO EARLOBES BID TOPICAL 09/29/16 21:00 09/30/16 04:22 Objective Remarks GENERAL: Well-nourished, well-developed patient. SKIN: Warm and dry. HEAD: Normocephalic. EYES: No scleral icterus. No injection or drainage. NECK: Supple, trachea midline. No JVD or lymphadenopathy. LYMPHATIC: No adenopathy. CARDIOVASCULAR: Regular rate and rhythm without murmurs. RESPIRATORY: Breath sounds equal bilaterally. No accessory muscle use. GASTROINTESTINAL: Abdomen soft, non-tender, nondistended. EXTREMITIES: No cyanosis, or Left groin/thigh hematoma resolving. MUSCULOSKELETAL: Adequate muscle tone. NEUROLOGICAL: No obvious focal deficit. Awake, alert, and oriented x3. PSYCHIATRIC: Appropriate mood and affect; insight and judgment normal. Assessment/Plan Assessment 1. Thrombocytopenia. I think she has acute on chronic thrombocytopenia. She has history of thrombocytopenia due to hepatitis C cirrhosis. Her platelet count has fluctuated. She developed significant thrombocytopenia every time she comes into the hospital. This time she came in with a platelet count of 129,000. Today it trended down to 108,000. I think the further drop in platelet count is due to the hematoma and platelet consumption. I do not think this is primary bone marrow disorder. She has had baseline mild thrombocytopenia due to hepatitis C cirrhosis. 09/29 No apparent DIC. Platelet trended up to 130 which may be her baseline. 09/30 No bleeding. Platelet fluctuating an dis 114K 2. Anemia. She has a history of iron deficiency anemia due to intermittent GI bleed. She had good response to iron supplement. She stated her hemoglobin was normal prior to her recent procedure. Hemoglobin has dropped down to 7.5 because of the hematoma. She had 2 units of packed red blood cell transfusion 09/27. 09/29 hgb stable. 09/30 Hgb stable. 3. History of fallopian tube cancer, Stage IV. She has been seeing Dr. Starks. She completed chemotherapy in May 2015 with a very good response. She had recent followup with Dr. Starks; she remains in remission. 4. Hepatitis C, cirrhosis diagnosed in 2006 by liver biopsy. She is supposed to start treatment in the near future. Plan Plan: 1. Monitor CBC. No further hematology workup planne. 2. Anticoagulation per cardiology. 3. I will sign and please call if any questions arises. Thanks. Jose Armstrong MD September 30, 2016 08:18
[2016-09-30] MEDS: CARISOPRODOL 350 MG TAB PO PRN ×2 (08:53→21:11)
[2016-09-30] MEDS: SODIUM CHLORIDE 0.9% FLUSH 10 ML FLUSH IV FLUSH SCH ×2 (08:55→22:43)
[2016-09-30] MEDS: CALCIUM/VITAMIN D 250 MG/125 U TAB PO SCH ×2 (08:56→21:11)
[2016-09-30] MEDS: BUMETANIDE 1 MG TAB PO SCH ×2 (08:57→21:10)
[2016-09-30] MEDS: buPROPion HCL 100 MG TAB PO SCH ×2 (08:57→21:11)
[2016-09-30] MEDS: ATENOLOL 50 MG TAB PO SCH ×2 (09:00→09:02)
[2016-09-30] MEDS: TIOTROPIUM BROMIDE 18 MCG INH INH SCH (09:01)
[2016-09-30] MEDS: DIGOXIN 0.125 MG TAB PO SCH (09:02)
[2016-09-30] MEDS: PANTOPRAZOLE SOD 40 MG DELAYED RELEASE TAB PO SCH (09:02)
[2016-09-30] MEDS: DOCUSATE SODIUM 100 MG CAP PO SCH ×2 (09:03→21:09)
[2016-09-30] MEDS: SPIRONOLACTONE 25 MG TAB PO SCH ×2 (09:03→17:41)
[2016-09-30] MEDS: POTASSIUM CHLORIDE 20 MEQ CONTROLLED RELEASE TAB PO SCH (09:03)
[2016-09-30] MEDS: TRIAMCINOLONE ACETONIDE 0.1% OINT 15 GM TUBE TOPICAL SCH ×2 (09:06→21:19)
[2016-09-30] MEDS ORDERED: oxyCODONE/ACETAMINOPHEN 5 MG/325 MG TAB PO PRN (09:30)
[2016-09-30] MEDS: POLYETHYLENE GLYCOL 17 GM PKG PO SCH (10:07)
--- NOTE | 2016-09-30 10:07 | HHI.PR ---
Subjective Remarks f/u for pseudoaneurysm patient stated pain and hematoma is improving. she stated it is soft now while prior it was hard. her nurse is at the bedside. + constipation and lower abdominal pain after bowel that has improved. denied any N/V. Objective Vitals Vital Signs Date Time Temp Pulse Resp B/P Pulse Ox O2 Delivery O2 Flow Rate FiO2 09/30/16 08:00 98.1 78 15 101/52 99 09/30/16 04:00 99.8 71 18 112/51 98 09/30/16 00:00 99.4 82 18 127/82 100 09/29/16 20:00 100.2 76 20 114/55 99 09/29/16 16:00 97.1 81 16 108/59 100 09/29/16 12:00 98.1 73 16 104/55 97 I/O 09/29/16 09/29/16 09/29/16 09/30/16 09/30/16 09/30/16 07:00 15:00 23:00 07:00 15:00 23:00 Intake Total 670 ml 600 ml 869 ml 566 ml Output Total 1425 ml 650 ml 475 ml 850 ml Balance -755 ml -50 ml 394 ml -284 ml Intake Oral 240 ml 600 ml 240 ml 120 ml IV Total 430 ml 629 ml 446 ml Output Urine Total 1425 ml 650 ml 475 ml 850 ml # Voids 2 # Bowel Movements 1 0 0 Result Diagram: 09/30/16 0406 09/30/16 0406 Objective Remarks GENERAL: in NAD NECK: Supple, trachea midline. No JVD or lymphadenopathy. CARDIOVASCULAR: Regular rate and rhythm without murmurs, gallops, or rubs. RESPIRATORY: Breath sounds equal bilaterally. No accessory muscle use. GASTROINTESTINAL: Abdomen soft, non-tender, nondistended. MUSCULOSKELETAL: left thigh/groin area soft hematoma with ecchymosis. no TTP . BACK: Nontender without obvious deformity. No CVA tenderness. Procedures 09/26/16 ultrasound-guided drainage of left groin hematoma Medications and IVs Current Medications Ondansetron HCl (Zofran Inj) 4 mg ONCE ONCE IVP Last administered on t 17:11; Start 09/22/16 at 16:15; Stop 09/22/16 at 16:16; Status DC Hydromorphone HCl (Dilaudid Pf Inj) 1 mg ONCE ONCE IVS Last administered on 17:10; Start 09/22/16 at 16:15; Stop 09/22/16 at 16:16; Status DC Pantoprazole Sodium (Protonix) 40 mg DAILY PO Last administered on 09/22/16 21 :46; Start 09/22/16 at 21:00; Stop 09/23/16 at 08:21; Status DC Sodium Chloride (NS Flush) 2 ml UNSCH PRN IV FLUSH FLUSH AFTER USING IV ACCESS Last administered on 09/28/16 22:54; Start 09/22/16 at 19:30 Sodium Chloride (NS Flush) 2 ml BID IV FLUSH Last administered on 09/30/16 08: 55; Start 09/22/16 at 21:00 Acetaminophen (Tylenol) 650 mg Q4H PRN PO TEMP > 100.4; Start 09/22/16 at 19:30 Ondansetron HCl (Zofran Inj) 4 mg Q6H PRN IVP NAUSEA OR VOMITING Last administered on 09/27/16 17:15; Start 09/22/16 at 19:30 Sennosides (Senokot) 17.2 mg Q12H PRN PO CONSTIPATION Last administered on 09/28 09:06; Start 09/22/16 at 19:30 Naloxone HCl (Narcan Inj) 0.4 mg UNSCH PRN IV SEE LABEL COMMENTS; Start at 19:30 Dextrose (D50w (Vial) Inj) 50 ml UNSCH PRN IV HYPOGLYCEMIA-SEE COMMENTS; Start 09/22/16 at 19:30 Glucagon (Glucagon Inj) 1 mg UNSCH PRN OTHER HYPOGLYCEMIA-SEE COMMENTS; Start 09/22/16 at 19:30 Insulin Aspart (NovoLOG SUPPLEMENTAL SCALE) 1 ACHS SLIDING SCALE SQ Last administered on 09/29/16 16:43; Start 09/22/16 at 21:00 Albuterol/ Ipratropium (Duoneb Neb) 1 ampule Q4HR NEB PRN NEB SOB/WHEEZING Last administered on 09/29/16 03:17; Start 09/22/16 at 20:00 Morphine Sulfate (Morphine Inj) 2 mg Q3H PRN IV PAIN > 5/10 Last administered on 09/22/16 20:44; Start 09/22/16 at 20:15; Stop 09/22/16 at 23:02; Status DC Hydromorphone HCl (Dilaudid Pf Inj) 1 mg Q3HR PRN IV PUSH pain >5 Last administered on 09/30/16 08:53; Start 09/22/16 at 23:15 Albuterol/ Ipratropium 1 ampule 1 ampule Q4HR NEB PRN NEB wheezing; Start 09/22 at 23:15 Dextrose/Sodium Chloride (D5W-NS 1000 ml Inj) 1,000 ml @ 42 mls/hr [id number] IV Last administered on 09/30/16 06:52; Start 09/23/16 at 07:30 Atenolol (Tenormin) 50 mg DAILY PO Last administered on 09/30/16 09:02; Start 09/23/16 at 09:00 Bumetanide (Bumetanide) 1 mg BID PO Last administered on 09/30/16 08:57; Start 09/23/16 at 09:00 Bupropion HCl (Wellbutrin) 100 mg BID PO Last administered on 09/30/16 08:57; Start 09/23/16 at 09:00 Carisoprodol (Soma) 350 mg BID PRN PO MUSCLE SPASM Last administered on 08:53; Start 09/23/16 at 07:45 Dicyclomine HCl (Bentyl) 20 mg TID PRN PO ABDOMINAL DISCOMFORT; Start 09/23/16 at 07:45 Digoxin (Lanoxin) 0.125 mg DAILY PO Last administered on 09/30/16 09:02; Start 09/23/16 at 09:00 Acetaminophen/ Hydrocodone Bitart ([place] 10-325 Mg) 1 tab Q6H PRN PO PAIN 1-5; Start 09/23/16 at 07:45 Lorazepam (Ativan) 0.5 mg Q6H PRN PO ANXIETY Last administered on 09/23/16 23: 07; Start 09/23/16 at 07:45 Pantoprazole Sodium (Protonix) 40 mg DAILY PO Last administered on 09/30/16 09 :02; Start 09/23/16 at 09:00 Potassium Chloride (KCl) 20 meq DAILY PO Last administered on 09/30/16 09:03; Start 09/23/16 at 09:00 Spironolactone (Aldactone) 25 mg BIDPC PO Last administered on 09/30/16 09:03 ; Start 09/23/16 at 09:00 Tiotropium [place] (Spiriva Inh) 18 mcg DAILY INH Last administered on 09:01; Start 09/23/16 at 09:00 Triamcinolone Acetonide (Aristocort 0.1% Oint) 1 applic BID TOPICAL Last administered on 09/30/16 09:06; Start 09/23/16 at 09:00 Calcium/Vitamin D (Oscal-D 250-125) 500 mg BID PO Last administered on 08:56; Start 09/23/16 at 09:00 Ondansetron HCl (Zofran Odt) 4 mg Q6H PRN PO NAUSEA OR VOMITING Last administered on 09/23/16 23:08; Start 09/23/16 at 08:30 Hydromorphone HCl (Dilaudid Pf Inj) 2 mg STK-MED ONCE .ROUTE Last administered on 09/23/16 11:35; Start 09/23/16 at 11:35; Stop 09/23/16 at 11:36; Status DC Thrombin (Thrombin Top Soln) 5,000 units STK-MED ONCE .ROUTE ; Start 09/23/16 at 11:35; Stop 09/23/16 at 11:36; Status DC Warfarin Sodium (Coumadin) 5 mg DAILY@1600 PO Last administered on 09/29/16 16 :43; Start 09/23/16 at 16:00 Patient Medication Teaching (Coumadin Booklet) 1 ONCE ONCE OTHER Last administered on 09/23/16 17:34; Start 09/23/16 at 16:00; Stop 09/23/16 at 16:01 ; Status DC Nitroglycerin 0.4 mg 0.4 mg Q5M PRN SL CHEST PAIN; Start 09/23/16 at 19:45; Status Hold Vancomycin HCl 1000 mg/Sodium Chloride 250 ml @ 250 mls/hr ONCE ONCE IV Last administered on 09/23/16 23:14; Start 09/23/16 at 20:15; Stop 09/23/16 at 21:14 ; Status DC Cefepime HCl/ Sodium Chloride (Maxipime Inj/NS Inj) 100 ml @ 200 mls/hr DAILY@ 04,16 IV Last administered on 09/30/16 04:22; Start 09/24/16 at 04:15 Phytonadione (Vitamin K Inj) 5 mg ONCE ONCE SQ Last administered on 09/26/16 11:58; Start 09/26/16 at 11:30; Stop 09/26/16 at 11:31; Status DC Fentanyl Citrate (fentaNYL INJ) 100 mcg STK-MED ONCE .ROUTE Last administered on 09/26/16 14:38; Start 09/26/16 at 14:38; Stop 09/26/16 at 14:39; Status DC Docusate Sodium (Colace) 100 mg BID PO Last administered on 09/30/16 09:03; Start 09/29/16 at 21:00 Mupirocin (Bactroban 2% Oint) APPLY TO EARLOBES BID TOPICAL Last administered on 09/30/16 09:04; Start 09/29/16 at 21:00 A/P Problem List: (1) Pseudoaneurysm following procedure ICD Code: I99.8 Status: Acute (2) DM (diabetes mellitus) ICD Code: E11.9 Status: Chronic (3) A-fib ICD Code: I48.91 Status: Chronic (4) HTN (hypertension) ICD Code: I10 Status: Chronic (5) CKD (chronic kidney disease) stage 3, GFR 30-59 ml/min ICD Code: N18.3 Status: Chronic (6) Groin hematoma ICD Code: S30.1XXA Status: Acute (7) Atrial fibrillation, currently in sinus rhythm ICD Code: I48.91 Status: Chronic Assessment and Plan Left groin pseudoaneurysm following cardiac procedure: -Continuing to have pain, but is very comfortable in bed. Appreciate vascular surgery recommendations. Per Dr. Rowell, no need for intervention at this time. Coumadin restarted per cardiology recommendations. 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 okay with restart anticoagulant. -d/c IV dilaudid and start percocet. Hypertension - Blood pressure is better controlled. Diabetes mellitus - Diet controlled. Monitor Accu-Cheks and cover with sliding scale insulin. COPD, asthma: -asymptomatic. -Oxygen, bronchodilators as needed. History of hepatitis C - Outpatient follow-up. Chronic kidney disease stage III - Stable. Monitor BUN, Creatinine. History of atrial fibrillation -coumadin restarted. Fever, chest pain: CXR is negative. Blood cultures are negative so far. -asymptomatic. clinically looks well. she was started on cefepime and I do not see any indication to continue with medication. -no signs of PNA. -will d/c cefepime and start doxycycline to treat questionable PNA. will d/c after 7 days of total treatment. Anemia: -s/p 2 units PRBCs. -continue to monitor H/H. Thrombocytopenia: - improving. -continue to monitor. Hematoma, left groin -Status post percutaneous drainage by interventional radiology. -continue to monitor. Discharge Planning will need to continue to monitor for stabilization of hematoma while on Coumadin. Problem Qualifiers (1) DM (diabetes mellitus): Ksenia Hankins MD September 30, 2016 10:07
[2016-09-30] MEDS: DOXYCYCLINE HYCLATE 100 MG CAP PO SCH ×2 (11:37→21:11)
[2016-09-30] MEDS: oxyCODONE/ACETAMINOPHEN 10 MG/325 MG TAB PO PRN ×3 (11:40→21:11)
[2016-09-30 12:00] VITALS: BP 119/70; PULSE 80; RESP 14; TEMP 98.2; O2SAT 100
[2016-09-30] MEDS: WARFARIN SOD 5 MG TAB PO SCH (15:51)
[2016-09-30 16:00] VITALS: BP 101/53; PULSE 75; RESP 13; TEMP 96.3; O2SAT 98
[2016-09-30 20:00] VITALS: BP 104/50; PULSE 76; RESP 18; TEMP 98.7; O2SAT 98
[2016-10-01] VITALS: BP 132/61; PULSE 85; RESP 18; TEMP 98; O2SAT 99
[2016-10-01] MEDS: oxyCODONE/ACETAMINOPHEN 10 MG/325 MG TAB PO PRN ×6 (01:00→22:12)
[2016-10-01 04:00] VITALS: BP 98/53; PULSE 66; RESP 18; TEMP 97.7; O2SAT 99
[2016-10-01] MEDS: DEXT 5%-NACL 0.9% 1000 ML INJ 1,000 ML IV SCH (05:33)
[2016-10-01 05:50] LABS: HEMATOCRIT 26.1 % (35.0-46.0); MEAN CELL VOLUME 92.4 FL (80.0-100.0); MEAN CORPUSCULAR HEMOGLOBIN 31.2 PG (27.0-34.0); MEAN CORPUSCULAR HGB CONC 33.7 % (32.0-36.0); PLATELET COUNT 114 TH/MM3 (150-450); RED BLOOD COUNT 2.82 MIL/MM3 (4.00-5.30); RED CELL DISTRIBUTION WIDTH 16.2 % (11.6-17.2); REVIEW FLAG FINAL; WHITE BLOOD COUNT 8.5 TH/MM3 (4.0-11.0)
[2016-10-01 06:13] LABS: BICARBONATE 35.3 MEQ/L (21.0-32.0)
[2016-10-01] MEDS: INSULIN ASPART SUPPLEMENTAL SCALE SQ SCH ×4 (06:16→22:28)
[2016-10-01 08:00] VITALS: BP 89/49; PULSE 102; RESP 12; TEMP 97; O2SAT 98
[2016-10-01] MEDS: ATENOLOL 50 MG TAB PO SCH (08:24)
[2016-10-01] MEDS: DIGOXIN 0.125 MG TAB PO SCH (08:29)
[2016-10-01] MEDS: POTASSIUM CHLORIDE 20 MEQ CONTROLLED RELEASE TAB PO SCH (08:29)
[2016-10-01] MEDS: DOCUSATE SODIUM 100 MG CAP PO SCH ×2 (08:30→22:11)
[2016-10-01] MEDS: SPIRONOLACTONE 25 MG TAB PO SCH ×2 (08:30→16:37)
[2016-10-01] MEDS: CALCIUM/VITAMIN D 250 MG/125 U TAB PO SCH ×2 (08:30→22:11)
[2016-10-01] MEDS: BUMETANIDE 1 MG TAB PO SCH ×2 (08:30→22:10)
[2016-10-01] MEDS: PANTOPRAZOLE SOD 40 MG DELAYED RELEASE TAB PO SCH (08:30)
[2016-10-01] MEDS: DOXYCYCLINE HYCLATE 100 MG CAP PO SCH ×2 (08:30→22:10)
[2016-10-01] MEDS: buPROPion HCL 100 MG TAB PO SCH ×2 (08:30→22:11)
[2016-10-01] MEDS: POLYETHYLENE GLYCOL 17 GM PKG PO SCH (08:36)
[2016-10-01] MEDS: TIOTROPIUM BROMIDE 18 MCG INH INH SCH (08:37)
[2016-10-01] MEDS: MUPIROCIN 2% OINT 22 GM TUBE TOPICAL SCH ×2 (08:38→22:22)
[2016-10-01] MEDS: TRIAMCINOLONE ACETONIDE 0.1% OINT 15 GM TUBE TOPICAL SCH ×2 (08:38→22:22)
[2016-10-01] MEDS: SODIUM CHLORIDE 0.9% FLUSH 10 ML FLUSH IV FLUSH SCH ×2 (08:39→21:00)
[2016-10-01] MEDS: DICYCLOMINE HCL 20 MG TAB PO PRN ×2 (08:58→16:45)
[2016-10-01] MEDS: ONDANSETRON HCL 4 MG/2 ML VIAL IVP PRN (09:39)
[2016-10-01] MEDS: CARISOPRODOL 350 MG TAB PO PRN ×2 (09:40→22:11)
--- NOTE | 2016-10-01 10:10 | HHI.PR ---
Subjective Remarks Follow-up for left thigh hematoma. Patient stated the pain is improving. She stated that hematoma looks a lot better today. Patient continues to complain of lower abdominal pain. She stated that she has not had a bowel movement yet. Patient says she feels constant. Patient stated that she has multiple GI issues in which she is seeing Dr. Joshi and is being worked up currently. She denies any nausea or vomiting and tolerating by mouth intake. She remains afebrile. Objective Vitals Vital Signs Date Time Temp Pulse Resp B/P Pulse Ox O2 Delivery O2 Flow Rate FiO2 10/01/16 08:00 97.0 102 12 89/49 98 10/01/16 04:00 97.7 66 18 98/53 99 10/01/16 02:00 18 10/01/16 00:00 98.0 85 18 132/61 99 09/30/16 22:11 18 09/30/16 20:00 98.7 76 18 104/50 98 09/30/16 16:00 96.3 75 13 101/53 98 09/30/16 12:00 98.2 80 14 119/70 100 I/O 09/30/16 09/30/16 09/30/16 10/01/16 10/01/16 10/01/16 06:59 14:59 22:59 06:59 14:59 22:59 Intake Total 566 ml 960 ml 240 ml 120 ml 746 ml Output Total 850 ml 925 ml 925 ml Balance -284 ml 960 ml -685 ml -805 ml 746 ml Intake Oral 120 ml 960 ml 240 ml 120 ml IV Total 446 ml 746 ml Output Urine Total 850 ml 925 ml 925 ml # Voids 7 # Bowel Movements 0 0 0 0 Result Diagram: 10/01/16 0510 10/01/16 0510 Objective Remarks GENERAL: in NAD NECK: Supple, trachea midline. No JVD or lymphadenopathy. CARDIOVASCULAR: Regular rate and rhythm without murmurs, gallops, or rubs. RESPIRATORY: Breath sounds equal bilaterally. No accessory muscle use. GASTROINTESTINAL: Abdomen soft, nondistended + mild TTP in lower abdomen. MUSCULOSKELETAL: left thigh/groin area soft hematoma with ecchymosis. no TTP . BACK: Nontender without obvious deformity. No CVA tenderness. Procedures 5/22/17 ultrasound-guided drainage of left groin hematoma Medications and IVs Current Medications Ondansetron HCl (Zofran Inj) 4 mg ONCE ONCE IVP Last administered on 17:11; Start 09/22/16 at 16:15; Stop 09/22/16 at 16:16; Status DC Hydromorphone HCl (Dilaudid Pf Inj) 1 mg ONCE ONCE IVS Last administered on 17:10; Start 09/22/16 at 16:15; Stop 09/22/16 at 16:16; Status DC Pantoprazole Sodium (Protonix) 40 mg DAILY PO Last administered on 09/22/16 21 :46; Start 09/22/16 at 21:00; Stop 09/23/16 at 08:21; Status DC Sodium Chloride (NS Flush) 2 ml UNSCH PRN IV FLUSH FLUSH AFTER USING IV ACCESS Last administered on 09/28/16 22:54; Start 09/22/16 at 19:30 Sodium Chloride (NS Flush) 2 ml BID IV FLUSH Last administered on 10/01/16 08: 39; Start 09/22/16 at 21:00 Acetaminophen (Tylenol) 650 mg Q4H PRN PO TEMP > 100.4; Start 09/22/16 at 19:30 Ondansetron HCl (Zofran Inj) 4 mg Q6H PRN IVP NAUSEA OR VOMITING Last administered on 10/01/16 09:39; Start 09/22/16 at 19:30 Sennosides (Senokot) 17.2 mg Q12H PRN PO CONSTIPATION Last administered on 09/28 09:06; Start 09/22/16 at 19:30 Naloxone HCl (Narcan Inj) 0.4 mg UNSCH PRN IV SEE LABEL COMMENTS; Start at 19:30 Dextrose (D50w (Vial) Inj) 50 ml UNSCH PRN IV HYPOGLYCEMIA-SEE COMMENTS; Start 09/22/16 at 19:30 Glucagon (Glucagon Inj) 1 mg UNSCH PRN OTHER HYPOGLYCEMIA-SEE COMMENTS; Start 09/22/16 at 19:30 Insulin Aspart (NovoLOG SUPPLEMENTAL SCALE) 1 ACHS SLIDING SCALE SQ Last administered on 09/30/16 22:43; Start 09/22/16 at 21:00 Albuterol/ Ipratropium (Duoneb Neb) 1 ampule Q4HR NEB PRN NEB SOB/WHEEZING Last administered on 09/29/16 03:17; Start 09/22/16 at 20:00 Morphine Sulfate (Morphine Inj) 2 mg Q3H PRN IV PAIN > 5/10 Last administered on 09/22/16 20:44; Start 09/22/16 at 20:15; Stop 09/22/16 at 23:02; Status DC Hydromorphone HCl (Dilaudid Pf Inj) 1 mg Q3HR PRN IV PUSH pain >5 Last administered on 09/30/16 08:53; Start 09/22/16 at 23:15; Stop 09/30/16 at 09:32 ; Status DC Albuterol/ Ipratropium 1 ampule 1 ampule Q4HR NEB PRN NEB wheezing; Start 09/22 at 23:15 Dextrose/Sodium Chloride (D5W-NS 1000 ml Inj) 1,000 ml @ 42 mls/hr [id number] IV Last administered on 10/01/16 05:33; Start 09/23/16 at 07:30 Atenolol (Tenormin) 50 mg DAILY PO Last administered on 09/28/16 08:57; Start 09/23/16 at 09:00 Bumetanide (Bumetanide) 1 mg BID PO Last administered on 10/01/16 08:30; Start 09/23/16 at 09:00 Bupropion HCl (Wellbutrin) 100 mg BID PO Last administered on 10/01/16 08:30; Start 09/23/16 at 09:00 Carisoprodol (Soma) 350 mg BID PRN PO MUSCLE SPASM Last administered on 09:40; Start 09/23/16 at 07:45 Dicyclomine HCl (Bentyl) 20 mg TID PRN PO ABDOMINAL DISCOMFORT Last administered on 10/01/16 08:58; Start 09/23/16 at 07:45 Digoxin (Lanoxin) 0.125 mg DAILY PO Last administered on 10/01/16 08:29; Start 09/23/16 at 09:00 Acetaminophen/ Hydrocodone Bitart ([place] 10-325 Mg) 1 tab Q6H PRN PO PAIN 1-5; Start 09/23/16 at 07:45; Stop 09/30/16 at 09:32; Status DC Lorazepam (Ativan) 0.5 mg Q6H PRN PO ANXIETY Last administered on 09/23/16 23: 07; Start 09/23/16 at 07:45 Pantoprazole Sodium (Protonix) 40 mg DAILY PO Last administered on 10/01/16 08 :30; Start 09/23/16 at 09:00 Potassium Chloride (KCl) 20 meq DAILY PO Last administered on 10/01/16 08:29; Start 09/23/16 at 09:00 Spironolactone (Aldactone) 25 mg BIDPC PO Last administered on 10/01/16 08:30 ; Start 09/23/16 at 09:00 Tiotropium [place] (Spiriva Inh) 18 mcg DAILY INH Last administered on 08:37; Start 09/23/16 at 09:00 Triamcinolone Acetonide (Aristocort 0.1% Oint) 1 applic BID TOPICAL Last administered on 10/01/16 08:38; Start 09/23/16 at 09:00 Calcium/Vitamin D (Oscal-D 250-125) 500 mg BID PO Last administered on 08:30; Start 09/23/16 at 09:00 Ondansetron HCl (Zofran Odt) 4 mg Q6H PRN PO NAUSEA OR VOMITING Last administered on 09/23/16 23:08; Start 09/23/16 at 08:30 Hydromorphone HCl (Dilaudid Pf Inj) 2 mg STK-MED ONCE .ROUTE Last administered on 09/23/16 11:35; Start 09/23/16 at 11:35; Stop 09/23/16 at 11:36; Status DC Thrombin (Thrombin Top Soln) 5,000 units STK-MED ONCE .ROUTE ; Start 09/23/16 at 11:35; Stop 09/23/16 at 11:36; Status DC Warfarin Sodium (Coumadin) 5 mg DAILY@1600 PO Last administered on 09/30/16 15 :51; Start 09/23/16 at 16:00 Patient Medication Teaching (Coumadin Booklet) 1 ONCE ONCE OTHER Last administered on 09/23/16 17:34; Start 09/23/16 at 16:00; Stop 09/23/16 at 16:01 ; Status DC Nitroglycerin 0.4 mg 0.4 mg Q5M PRN SL CHEST PAIN; Start 09/23/16 at 19:45; Status Hold Vancomycin HCl 1000 mg/Sodium Chloride 250 ml @ 250 mls/hr ONCE ONCE IV Last administered on 09/23/16 23:14; Start 09/23/16 at 20:15; Stop 09/23/16 at 21:14 ; Status DC Cefepime HCl/ Sodium Chloride (Maxipime Inj/NS Inj) 100 ml @ 200 mls/hr DAILY@ 04,16 IV Last administered on 09/30/16 04:22; Start 09/24/16 at 04:15; Stop at 09:32; Status DC Phytonadione (Vitamin K Inj) 5 mg ONCE ONCE SQ Last administered on 09/26/16 11:58; Start 09/26/16 at 11:30; Stop 09/26/16 at 11:31; Status DC Fentanyl Citrate (fentaNYL INJ) 100 mcg K-MED ONCE .ROUTE Last administered on 09/26/16 14:38; Start 09/26/16 at 14:38; Stop 09/26/16 at 14:39; Status DC Docusate Sodium (Colace) 100 mg BID PO Last administered on 10/01/16 08:30; Start 09/29/16 at 21:00 Mupirocin (Bactroban 2% Oint) APPLY TO EARLOBES BID TOPICAL Last administered on 10/01/16 08:38; Start 09/29/16 at 21:00 Doxycycline Hyclate (Vibramycin) 100 mg BID PO Last administered on 10/01/16 08:30; Start 09/30/16 at 09:45 Oxycodone/ Acetaminophen (Percocet 5-325 Mg) 1 tab Q4H PRN PO pain 1-6; Start 09/30/16 at 09:30 Oxycodone/ Acetaminophen (Percocet 10-325 Mg) 1 tab Q4H PRN PO pain 7-10 Last administered on 10/01/16 09:40; Start 09/30/16 at 09:30 Polyethylene Glycol (Miralax) 17 gm DAILY PO Last administered on 10/01/16 08: 36; Start 09/30/16 at 09:45 A/P Problem List: (1) Pseudoaneurysm following procedure ICD Code: I99.8 Status: Acute (2) DM (diabetes mellitus) ICD Code: E11.9 Status: Chronic (3) A-fib ICD Code: I48.91 Status: Chronic (4) HTN (hypertension) ICD Code: I10 Status: Chronic (5) CKD (chronic kidney disease) stage 3, GFR 30-59 ml/min ICD Code: N18.3 Status: Chronic (6) Groin hematoma ICD Code: S30.1XXA Status: Acute (7) Atrial fibrillation, currently in sinus rhythm ICD Code: I48.91 Status: Chronic Assessment and Plan Left groin pseudoaneurysm following cardiac procedure: -Continuing to have pain, but is very comfortable in bed. Appreciate vascular surgery recommendations. Per Dr. Rowell, no need for intervention at this time. Coumadin restarted per cardiology recommendations. -dialysis nurse was consulted signed off stated to monitor CBC. okay with restart anticoagulant. -Doing well on Percocet. -Hemoglobin is stable today. We'll continue to monitor CBC while patient is on Coumadin. Hypertension - Blood pressure is better controlled. Diabetes mellitus - Diet controlled. Monitor Accu-Cheks and cover with sliding scale insulin. COPD, asthma: -asymptomatic. -Oxygen, bronchodilators as needed. History of hepatitis C - Outpatient follow-up. Chronic kidney disease stage III - Stable. Monitor BUN, Creatinine. History of atrial fibrillation -coumadin restarted. Fever, chest pain: CXR is negative. Blood cultures are negative so far. -asymptomatic. clinically looks well. she was started on cefepime and I do not see any indication to continue with medication. -no signs of PNA. -will d/c cefepime and start doxycycline to treat questionable PNA. will d/c after 7 days of total treatment. Anemia: -s/p 2 units PRBCs. -continue to monitor H/H. Thrombocytopenia: - Stable. No signs of active bleeding. -continue to monitor. Hematoma, left groin -Status post percutaneous drainage by interventional radiology. -continue to monitor. Lower abdominal pain -Most likely secondary to constipation. We'll get a KUB. -Patient is on Colace and MiraLAX. We will try an enema today. -Continue to monitor clinically. DVT prophylaxis -On Coumadin. Discharge Planning Will need to continue to monitor patient in regards to her CBC and hematoma while achieving INR goal of 2-3. Problem Qualifiers (1) DM (diabetes mellitus): Ksenia Hankins MD October 01, 2016 10:10
--- NOTE | 2016-10-01 11:15 | RADRPT ---
EXAM DATE/TIME: 10/01/2016 10:17 [facility] COMPARISON: ABDOMEN KUB ONLY, January 05, 2016, 13:12. INDICATIONS : Abdominal pain. MEDICAL HISTORY : Ulcerative colitis. Carcinoma, ovarian. SURGICAL HISTORY : Hysterectomy. Cholecystectomy. ENCOUNTER: Subsequent ACUITY: 4 - 6 days PAIN SCORE: 6/10 LOCATION: Bilateral abdomen. FINDINGS: 2 supine frontal views of the abdomen demonstrate air within bowel in a nonobstructive pattern. There is a prominent amount of stool throughout the colon and rectum. Cholecystectomy clips are present. N o organomegaly or abnormal calcifications are seen. Degenerative changes of the lumbar spine. Lung ba ses are clear. CONCLUSION: No acute abdominal abnormality is identified. There is a large amount of stool present. Dmitry Diallo MD on October 01, 2016 at 11:13 Board Certified Radiologist. This report was verified electronically.
[2016-10-01 12:00] VITALS: BP 106/55; PULSE 73; RESP 15; TEMP 97.6; O2SAT 99
[2016-10-01] MEDS: SENNOSIDES 8.6 MG TAB PO PRN (13:49)
[2016-10-01] MEDS ORDERED: SOD PHOSPHATE/SOD BIPHOSPHATE (ADULT) ENEMA 133ML RECTAL ONE (14:30)
[2016-10-01 16:00] VITALS: BP 118/64; PULSE 72; RESP 16; TEMP 98.2; O2SAT 100
[2016-10-01] MEDS: WARFARIN SOD 6 MG TAB PO SCH (16:00)
[2016-10-01 20:00] VITALS: BP 106/57; PULSE 79; RESP 18; TEMP 96.8; O2SAT 97
[2016-10-02 00:26] VITALS: BP 114/61; PULSE 68; RESP 18; TEMP 98; O2SAT 97
[2016-10-02] MEDS: DICYCLOMINE HCL 20 MG TAB PO PRN ×3 (00:57→17:27)
[2016-10-02] MEDS: oxyCODONE/ACETAMINOPHEN 10 MG/325 MG TAB PO PRN ×6 (02:49→23:14)
[2016-10-02 04:47] VITALS: BP 137/86; PULSE 75; RESP 18; TEMP 97.8; O2SAT 98
[2016-10-02 05:39] LABS: HEMATOCRIT 27.6 % (35.0-46.0); MEAN CORPUSCULAR HEMOGLOBIN 31.1 PG (27.0-34.0); MEAN CORPUSCULAR HGB CONC 33.1 % (32.0-36.0); PLATELET COUNT 134 TH/MM3 (150-450); RED BLOOD COUNT 2.93 MIL/MM3 (4.00-5.30); RED CELL DISTRIBUTION WIDTH 17.2 % (11.6-17.2); REVIEW FLAG FINAL; WHITE BLOOD COUNT 8.7 TH/MM3 (4.0-11.0)
[2016-10-02 05:48] LABS: BICARBONATE 36.7 MEQ/L (21.0-32.0); POTASSIUM 4.1 MEQ/L (3.5-5.1)
[2016-10-02 05:49] LABS: INTERNATIONAL NORMALIZED RATIO 1.8 RATIO; PROTHROMBIN TIME - PATIENT 20.3 SEC (9.8-11.6)
[2016-10-02] MEDS: DEXT 5%-NACL 0.9% 1000 ML INJ 1,000 ML IV SCH ×2 (06:13→21:33)
[2016-10-02] MEDS: INSULIN ASPART SUPPLEMENTAL SCALE SQ SCH ×4 (06:25→21:41)
[2016-10-02] MEDS: MUPIROCIN 2% OINT 22 GM TUBE TOPICAL SCH ×2 (07:21→21:32)
[2016-10-02] MEDS: ATENOLOL 50 MG TAB PO SCH (07:21)
[2016-10-02] MEDS: TRIAMCINOLONE ACETONIDE 0.1% OINT 15 GM TUBE TOPICAL SCH ×2 (07:21→21:00)
[2016-10-02] MEDS: SPIRONOLACTONE 25 MG TAB PO SCH ×2 (07:23→16:15)
[2016-10-02] MEDS: BUMETANIDE 1 MG TAB PO SCH ×2 (07:23→21:31)
[2016-10-02] MEDS: DIGOXIN 0.125 MG TAB PO SCH (07:24)
[2016-10-02] MEDS: DOCUSATE SODIUM 100 MG CAP PO SCH ×2 (07:24→21:32)
[2016-10-02] MEDS: buPROPion HCL 100 MG TAB PO SCH ×2 (07:24→21:32)
[2016-10-02] MEDS: CALCIUM/VITAMIN D 250 MG/125 U TAB PO SCH ×2 (07:24→21:32)
[2016-10-02] MEDS: POTASSIUM CHLORIDE 20 MEQ CONTROLLED RELEASE TAB PO SCH (07:24)
[2016-10-02] MEDS: DOXYCYCLINE HYCLATE 100 MG CAP PO SCH ×2 (07:24→21:31)
[2016-10-02] MEDS: PANTOPRAZOLE SOD 40 MG DELAYED RELEASE TAB PO SCH (07:24)
[2016-10-02] MEDS: POLYETHYLENE GLYCOL 17 GM PKG PO SCH (07:26)
[2016-10-02] MEDS: TIOTROPIUM BROMIDE 18 MCG INH INH SCH (07:27)
[2016-10-02] MEDS: SODIUM CHLORIDE 0.9% FLUSH 10 ML FLUSH IV FLUSH SCH ×2 (07:33→21:00)
[2016-10-02 08:00] VITALS: BP 105/54; PULSE 72; RESP 17; TEMP 97.1; O2SAT 98
[2016-10-02] MEDS: CARISOPRODOL 350 MG TAB PO PRN ×2 (10:33→23:14)
[2016-10-02] MEDS ORDERED: SOD PHOSPHATE/SOD BIPHOSPHATE (ADULT) ENEMA 133ML RECTAL ONE (11:15)
--- NOTE | 2016-10-02 11:19 | HHI.PR ---
Subjective Remarks Follow-up for hematoma and constipation Patient also complaining of some urinary retention today. She is asking to get a UA. She says she knows her by the breast and thinks she might have a UTI. She stated that she is ambulating a little more. Patient continues to complain of lower abdominal discomfort stated that she has not had a bowel movement yet. Denying nausea or vomiting. She remains afebrile. Objective Vitals Vital Signs Date Time Temp Pulse Resp B/P Pulse Ox O2 Delivery O2 Flow Rate FiO2 10/02/16 08:00 97.1 72 17 105/54 98 10/02/16 04:47 97.8 75 18 137/86 98 10/02/16 00:26 98.0 68 18 114/61 97 10/01/16 20:00 96.8 79 18 106/57 97 10/01/16 16:00 98.2 72 16 118/64 100 10/01/16 12:00 97.6 73 15 106/55 99 I/O 10/01/16 10/01/16 10/01/16 10/02/16 10/02/16 10/02/16 07:00 15:00 23:00 07:00 15:00 23:00 Intake Total 120 ml 1366 ml 878 ml 811 ml Output Total 925 ml 800 ml 1800 ml 400 ml Balance -805 ml 1366 ml 78 ml -989 ml -400 ml Intake Oral 120 ml 620 ml 360 ml 480 ml IV Total 746 ml 518 ml 331 ml Output Urine Total 925 ml 800 ml 1800 ml 400 ml Bladder Scan Volume Amount 527 ml # Voids 4 # Bowel Movements 0 0 1 Result Diagram: 10/02/16 0508 10/02/16 0508 Objective Remarks GENERAL: in NAD NECK: Supple, trachea midline. No JVD or lymphadenopathy. CARDIOVASCULAR: Regular rate and rhythm without murmurs, gallops, or rubs. RESPIRATORY: Breath sounds equal bilaterally. No accessory muscle use. GASTROINTESTINAL: Abdomen soft, nondistended + mild TTP in lower abdomen. No peritoneal signs MUSCULOSKELETAL: left thigh/groin area soft hematoma with ecchymosis. no TTP . BACK: Nontender without obvious deformity. No CVA tenderness. Procedures 09/26/16 ultrasound-guided drainage of left groin hematoma Medications and IVs Current Medications Ondansetron HCl (Zofran Inj) 4 mg ONCE ONCE IVP Last administered on 17:11; Start 09/22/16 at 16:15; Stop 09/22/16 at 16:16; Status DC Hydromorphone HCl (Dilaudid Pf Inj) 1 mg ONCE ONCE IVS Last administered on 17:10; Start 09/22/16 at 16:15; Stop 09/22/16 at 16:16; Status DC Pantoprazole Sodium (Protonix) 40 mg DAILY PO Last administered on 09/22/16 21 :46; Start 09/22/16 at 21:00; Stop 09/23/16 at 08:21; Status DC Sodium Chloride (NS Flush) 2 ml UNSCH PRN IV FLUSH FLUSH AFTER USING IV ACCESS Last administered on 09/28/16 22:54; Start 09/22/16 at 19:30 Sodium Chloride (NS Flush) 2 ml BID IV FLUSH Last administered on 10/01/16 08: 39; Start 09/22/16 at 21:00 Acetaminophen (Tylenol) 650 mg Q4H PRN PO TEMP > 100.4; Start 09/22/16 at 19:30 Ondansetron HCl (Zofran Inj) 4 mg Q6H PRN IVP NAUSEA OR VOMITING Last administered on 10/01/16 09:39; Start 09/22/16 at 19:30 Sennosides (Senokot) 17.2 mg Q12H PRN PO CONSTIPATION Last administered on 10/01 13:49; Start 09/22/16 at 19:30 Naloxone HCl (Narcan Inj) 0.4 mg UNSCH PRN IV SEE LABEL COMMENTS; Start at 19:30 Dextrose (D50w (Vial) Inj) 50 ml UNSCH PRN IV HYPOGLYCEMIA-SEE COMMENTS; Start 09/22/16 at 19:30 Glucagon (Glucagon Inj) 1 mg UNSCH PRN OTHER HYPOGLYCEMIA-SEE COMMENTS; Start 09/22/16 at 19:30 Insulin Aspart (NovoLOG SUPPLEMENTAL SCALE) 1 ACHS SLIDING SCALE SQ Last administered on 10/02/16 06:25; Start 09/22/16 at 21:00 Albuterol/ Ipratropium (Duoneb Neb) 1 ampule Q4HR NEB PRN NEB SOB/WHEEZING Last administered on 09/29/16 03:17; Start 09/22/16 at 20:00 Morphine Sulfate (Morphine Inj) 2 mg Q3H PRN IV PAIN > 5/10 Last administered on 09/22/16 20:44; Start 09/22/16 at 20:15; Stop 09/22/16 at 23:02; Status DC Hydromorphone HCl (Dilaudid Pf Inj) 1 mg Q3HR PRN IV PUSH pain >5 Last administered on 09/30/16 08:53; Start 09/22/16 at 23:15; Stop 09/30/16 at 09:32 ; Status DC Albuterol/ Ipratropium 1 ampule 1 ampule Q4HR NEB PRN NEB wheezing; Start 09/22 at 23:15 Dextrose/Sodium Chloride (D5W-NS 1000 ml Inj) 1,000 ml @ 42 mls/hr [id number] IV Last administered on 10/02/16 06:13; Start 09/23/16 at 07:30 Atenolol (Tenormin) 50 mg DAILY PO Last administered on 09/28/16 08:57; Start 09/23/16 at 09:00 Bumetanide (Bumetanide) 1 mg BID PO Last administered on 10/02/16 07:23; Start 09/23/16 at 09:00 Bupropion HCl (Wellbutrin) 100 mg BID PO Last administered on 10/02/16 07:24; Start 09/23/16 at 09:00 Carisoprodol (Soma) 350 mg BID PRN PO MUSCLE SPASM Last administered on 10:33; Start 09/23/16 at 07:45 Dicyclomine HCl (Bentyl) 20 mg TID PRN PO ABDOMINAL DISCOMFORT Last administered on 10/02/16 09:10; Start 09/23/16 at 07:45 Digoxin (Lanoxin) 0.125 mg DAILY PO Last administered on 10/02/16 07:24; Start 09/23/16 at 09:00 Acetaminophen/ Hydrocodone Bitart ([place] 10-325 Mg) 1 tab Q6H PRN PO PAIN 1-5; Start 09/23/16 at 07:45; Stop 09/30/16 at 09:32; Status DC Lorazepam (Ativan) 0.5 mg Q6H PRN PO ANXIETY Last administered on 09/23/16 23: 07; Start 09/23/16 at 07:45 Pantoprazole Sodium (Protonix) 40 mg DAILY PO Last administered on 10/02/16 07 :24; Start 09/23/16 at 09:00 Potassium Chloride (KCl) 20 meq DAILY PO Last administered on 10/02/16 07:24; Start 09/23/16 at 09:00 Spironolactone (Aldactone) 25 mg BIDPC PO Last administered on 10/02/16 07:23 ; Start 09/23/16 at 09:00 Tiotropium [place] (Spiriva Inh) 18 mcg DAILY INH Last administered on 07:27; Start 09/23/16 at 09:00 Triamcinolone Acetonide (Aristocort 0.1% Oint) 1 applic BID TOPICAL Last administered on 10/01/16 22:22; Start 09/23/16 at 09:00 Calcium/Vitamin D (Oscal-D 250-125) 500 mg BID PO Last administered on 07:24; Start 09/23/16 at 09:00 Ondansetron HCl (Zofran Odt) 4 mg Q6H PRN PO NAUSEA OR VOMITING Last administered on 09/23/16 23:08; Start 09/23/16 at 08:30 Hydromorphone HCl (Dilaudid Pf Inj) 2 mg STK-MED ONCE .ROUTE Last administered on 09/23/16 11:35; Start 09/23/16 at 11:35; Stop 09/23/16 at 11:36; Status DC Thrombin (Thrombin Top Soln) 5,000 units STK-MED ONCE .ROUTE ; Start 09/23/16 at 11:35; Stop 09/23/16 at 11:36; Status DC Warfarin Sodium (Coumadin) 5 mg DAILY@1600 PO Last administered on 09/30/16 15 :51; Start 09/23/16 at 16:00; Stop 10/01/16 at 10:17; Status DC Patient Medication Teaching (Coumadin Booklet) 1 ONCE ONCE OTHER Last administered on 09/23/16 17:34; Start 09/23/16 at 16:00; Stop 09/23/16 at 16:01 ; Status DC Nitroglycerin 0.4 mg 0.4 mg Q5M PRN SL CHEST PAIN; Start 09/23/16 at 19:45; Status Hold Vancomycin HCl 1000 mg/Sodium Chloride 250 ml @ 250 mls/hr ONCE ONCE IV Last administered on 09/23/16 23:14; Start 09/23/16 at 20:15; Stop 09/23/16 at 21:14 ; Status DC Cefepime HCl/ Sodium Chloride (Maxipime Inj/NS Inj) 100 ml @ 200 mls/hr DAILY@ 04,16 IV Last administered on 09/30/16 04:22; Start 09/24/16 at 04:15; Stop at 09:32; Status DC Phytonadione (Vitamin K Inj) 5 mg ONCE ONCE SQ Last administered on 09/26/16 11:58; Start 09/26/16 at 11:30; Stop 09/26/16 at 11:31; Status DC Fentanyl Citrate (fentaNYL INJ) 100 mcg [facility]-MED ONCE .ROUTE Last administered on 09/26/16 14:38; Start 09/26/16 at 14:38; Stop 09/26/16 at 14:39; Status DC Docusate Sodium (Colace) 100 mg BID PO Last administered on 10/02/16 07:24; Start 09/29/16 at 21:00 Mupirocin (Bactroban 2% Oint) APPLY TO EARLOBES BID TOPICAL Last administered on 10/01/16 22:22; Start 09/29/16 at 21:00 Doxycycline Hyclate (Vibramycin) 100 mg BID PO Last administered on 10/02/16 07:24; Start 09/30/16 at 09:45 Oxycodone/ Acetaminophen (Percocet 5-325 Mg) 1 tab Q4H PRN PO pain 1-6; Start 09/30/16 at 09:30 Oxycodone/ Acetaminophen (Percocet 10-325 Mg) 1 tab Q4H PRN PO pain 7-10 Last administered on 10/02/16 10:33; Start 09/30/16 at 09:30 Polyethylene Glycol 17 gm 17 gm DAILY PO Last administered on 10/02/16 07:26; Start 5/26/17 at 09:45 Pharmacy Profile Note (Coumadin Consult Pharmacy) 0 ml @ 0 mls/hr UNSCH OTHER ; Start 10/01/16 at 10:15 Warfarin Sodium (Coumadin) 6 mg DAILY@1600 PO Last administered on 10/01/16 16 :00; Start 10/01/16 at 16:00 Sodium Biphosphate/ Sodium Phosphate (Fleets Enema (Adult)) 133 ml ONCE ONCE RECTAL Last administered on 10/01/16 14:30; Start 10/01/16 at 14:30; Stop at 14:31; Status DC A/P Problem List: (1) Pseudoaneurysm following procedure ICD Code: I99.8 Status: Acute (2) DM (diabetes mellitus) ICD Code: E11.9 Status: Chronic (3) A-fib ICD Code: I48.91 Status: Chronic (4) HTN (hypertension) ICD Code: I10 Status: Chronic (5) CKD (chronic kidney disease) stage 3, GFR 30-59 ml/min ICD Code: N18.3 Status: Chronic (6) Groin hematoma ICD Code: S30.1XXA Status: Acute (7) Atrial fibrillation, currently in sinus rhythm ICD Code: I48.91 Status: Chronic Assessment and Plan Left groin pseudoaneurysm following cardiac procedure: -Pain controlled. Appreciate vascular surgery recommendations. Per Dr. Rowell, no need for intervention at this time. Coumadin restarted per cardiology recommendations. -[place] attendant was consulted signed off stated to monitor CBC. okay with restart anticoagulant. -Doing well on Percocet. -Hemoglobin is stable today. continue to monitor CBC while patient is on Coumadin. Hypertension - Blood pressure is better controlled. Diabetes mellitus - Diet controlled. Monitor Accu-Cheks and cover with sliding scale insulin. COPD, asthma: -asymptomatic. -Oxygen, bronchodilators as needed. History of hepatitis C - Outpatient follow-up. Chronic kidney disease stage III - Stable. Monitor BUN, Creatinine. History of atrial fibrillation -on coumadin Fever, chest pain: CXR is negative. Blood cultures are negative so far. -asymptomatic. clinically looks well. she was started on cefepime and I do not see any indication to continue with medication. -no signs of PNA. -d/c cefepime andon doxycycline to treat questionable PNA. will d/c after 7 days of total treatment. Anemia: -s/p 2 units PRBCs. -continue to monitor H/H. Thrombocytopenia: - Stable. No signs of active bleeding. -continue to monitor. Hematoma, left groin -Status post percutaneous drainage by interventional radiology. -continue to monitor. Lower abdominal pain -Most likely secondary to constipation. KUB shows lots of stools. -Patient is on Colace and MiraLAX. We'll give another dose of enema. Patient is also drinking prune juice. -Continue to monitor clinically. Urinary retention, mild -Most likely secondary to narcotic and decreased ambulation. Patient told to try to decrease narcotic use. DVT prophylaxis -On Coumadin. Discharge Planning Will need to continue to monitor patient in regards to her CBC and hematoma while achieving INR goal of 2-3. Problem Qualifiers (1) DM (diabetes mellitus): Ksenia Hankins MD October 02, 2016 11:19
[2016-10-02 12:00] VITALS: BP 109/55; PULSE 79; RESP 18; TEMP 97.5; O2SAT 99
[2016-10-02 16:00] VITALS: BP 114/56; PULSE 74; RESP 17; TEMP 98.3; O2SAT 99
[2016-10-02] MEDS: WARFARIN SOD 6 MG TAB PO SCH (16:16)
[2016-10-02 16:56] LABS: BLOOD, URINE NEG (NEG); GLUCOSE,URINE NEG (NEG); KETONE, URINE NEG (NEG); NITRITE,URINE NEG (NEG); URINE COLOR YELLOW (YELLW/STRAW)
[2016-10-02 16:58] LABS: COMMENT (UR) CULT NOT INDICATED; CULTURE IF INDICATED CULT NOT INDICATED
[2016-10-02 20:00] VITALS: BP 109/60; PULSE 76; RESP 18; TEMP 98.4; O2SAT 97
[2016-10-03] VITALS: BP 114/56; PULSE 80; RESP 18; TEMP 98.9; O2SAT 93
[2016-10-03] MEDS: LORazepam 0.5 MG TAB PO PRN ×2 (01:11→22:47)
[2016-10-03] MEDS: DICYCLOMINE HCL 20 MG TAB PO PRN ×3 (04:39→22:16)
[2016-10-03] MEDS: oxyCODONE/ACETAMINOPHEN 10 MG/325 MG TAB PO PRN ×5 (04:39→22:17)
[2016-10-03 05:12] VITALS: BP 120/60; PULSE 72; RESP 18; TEMP 97.8; O2SAT 98
[2016-10-03] MEDS: INSULIN ASPART SUPPLEMENTAL SCALE SQ SCH ×4 (05:56→21:00)
[2016-10-03 06:53] LABS: HEMATOCRIT 27.5 % (35.0-46.0); MEAN CELL VOLUME 94.2 FL (80.0-100.0); MEAN CORPUSCULAR HEMOGLOBIN 31.7 PG (27.0-34.0); MEAN CORPUSCULAR HGB CONC 33.6 % (32.0-36.0); PLATELET COUNT 147 TH/MM3 (150-450); RED BLOOD COUNT 2.92 MIL/MM3 (4.00-5.30); RED CELL DISTRIBUTION WIDTH 16.8 % (11.6-17.2); REVIEW FLAG FINAL; WHITE BLOOD COUNT 7.8 TH/MM3 (4.0-11.0)
[2016-10-03 07:04] LABS: INTERNATIONAL NORMALIZED RATIO 2.8 RATIO; PROTHROMBIN TIME - PATIENT 32.1 SEC (9.8-11.6)
[2016-10-03 07:15] LABS: BICARBONATE 35.5 MEQ/L (21.0-32.0); POTASSIUM 3.9 MEQ/L (3.5-5.1)
[2016-10-03 08:00] VITALS: BP 96/50; PULSE 71; RESP 17; TEMP 98.5; O2SAT 96
[2016-10-03] MEDS: POLYETHYLENE GLYCOL 17 GM PKG PO SCH (08:52)
[2016-10-03] MEDS: DOCUSATE SODIUM 100 MG CAP PO SCH ×2 (08:52→20:36)
[2016-10-03] MEDS: DOXYCYCLINE HYCLATE 100 MG CAP PO SCH ×2 (08:52→20:37)
[2016-10-03] MEDS: BUMETANIDE 1 MG TAB PO SCH ×2 (08:53→20:36)
[2016-10-03] MEDS: PANTOPRAZOLE SOD 40 MG DELAYED RELEASE TAB PO SCH (08:54)
[2016-10-03] MEDS: ATENOLOL 50 MG TAB PO SCH (08:54)
[2016-10-03] MEDS: DIGOXIN 0.125 MG TAB PO SCH (08:54)
[2016-10-03] MEDS: buPROPion HCL 100 MG TAB PO SCH ×2 (08:54→20:37)
[2016-10-03] MEDS: CALCIUM/VITAMIN D 250 MG/125 U TAB PO SCH ×2 (08:55→20:37)
[2016-10-03] MEDS: SPIRONOLACTONE 25 MG TAB PO SCH ×2 (08:55→17:20)
[2016-10-03] MEDS: POTASSIUM CHLORIDE 20 MEQ CONTROLLED RELEASE TAB PO SCH (08:55)
[2016-10-03] MEDS: SODIUM CHLORIDE 0.9% FLUSH 10 ML FLUSH IV FLUSH SCH ×3 (08:55→20:35)
[2016-10-03] MEDS: MUPIROCIN 2% OINT 22 GM TUBE TOPICAL SCH ×2 (08:56→20:38)
[2016-10-03] MEDS: TRIAMCINOLONE ACETONIDE 0.1% OINT 15 GM TUBE TOPICAL SCH ×2 (08:56→20:38)
[2016-10-03] MEDS: TIOTROPIUM BROMIDE 18 MCG INH INH SCH (09:00)
[2016-10-03] MEDS: CARISOPRODOL 350 MG TAB PO PRN ×2 (11:16→22:47)
--- NOTE | 2016-10-03 11:57 | HHI.PR ---
Subjective Remarks f/i for hematoma, constipation and Coumadin management. Patient continues have constipation. Continue the lower abdominal pain. Denies any nausea or vomiting. Patient stated that hematoma is getting better she's ambulating more. Otherwise no other complaints. Objective Vitals Vital Signs Date Time Temp Pulse Resp B/P Pulse Ox O2 Delivery O2 Flow Rate FiO2 10/03/16 08:00 98.5 71 17 96/50 96 10/03/16 05:12 97.8 72 18 120/60 98 10/03/16 00:00 98.9 80 18 114/56 93 10/02/16 20:00 98.4 76 18 109/60 97 10/02/16 16:00 98.3 74 17 114/56 99 10/02/16 12:00 97.5 79 18 109/55 99 I/O 10/02/16 10/02/16 10/02/16 10/03/16 10/03/16 10/03/16 07:00 15:00 23:00 07:00 15:00 23:00 Intake Total 811 ml 596 ml 480 ml 360 ml Output Total 1800 ml 1025 ml 1080 ml 1500 ml Balance -989 ml -429 ml -600 ml -1140 ml Intake Oral 480 ml 596 ml 480 ml 360 ml IV Total 331 ml 0 ml Output Urine Total 1800 ml 1025 ml 1080 ml 1500 ml Bladder Scan Volume Amount 527 ml # Bowel Movements 0 1 Result Diagram: 10/03/1655 10/03/16554 Objective Remarks GENERAL: in NAD NECK: Supple, trachea midline. No JVD or lymphadenopathy. CARDIOVASCULAR: Regular rate and rhythm without murmurs, gallops, or rubs. RESPIRATORY: Breath sounds equal bilaterally. No accessory muscle use. GASTROINTESTINAL: Abdomen soft, nondistended + mild TTP in lower abdomen. No peritoneal signs MUSCULOSKELETAL: left thigh/groin area soft hematoma. no TTP . no ecchymosis. BACK: Nontender without obvious deformity. No CVA tenderness. Procedures 09/26/16 ultrasound-guided drainage of left groin hematoma Medications and IVs Current Medications Ondansetron HCl (Zofran Inj) 4 mg ONCE ONCE IVP Last administered on t 17:11; Start 09/22/16 at 16:15; Stop 09/22/16 at 16:16; Status DC Hydromorphone HCl (Dilaudid Pf Inj) 1 mg ONCE ONCE IVS Last administered on 17:10; Start 09/22/16 at 16:15; Stop 09/22/16 at 16:16; Status DC Pantoprazole Sodium (Protonix) 40 mg DAILY PO Last administered on 09/22/16 21 :46; Start 09/22/16 at 21:00; Stop 09/23/16 at 08:21; Status DC Sodium Chloride (NS Flush) 2 ml UNSCH PRN IV FLUSH FLUSH AFTER USING IV ACCESS Last administered on 09/28/16 22:54; Start 09/22/16 at 19:30 Sodium Chloride (NS Flush) 2 ml BID IV FLUSH Last administered on 10/01/16 08: 39; Start 09/22/16 at 21:00 Acetaminophen (Tylenol) 650 mg Q4H PRN PO TEMP > 100.4; Start 09/22/16 at 19:30 Ondansetron HCl (Zofran Inj) 4 mg Q6H PRN IVP NAUSEA OR VOMITING Last administered on 10/01/16 09:39; Start 09/22/16 at 19:30 Sennosides (Senokot) 17.2 mg Q12H PRN PO CONSTIPATION Last administered on 10/01 13:49; Start 09/22/16 at 19:30 Naloxone HCl (Narcan Inj) 0.4 mg UNSCH PRN IV SEE LABEL COMMENTS; Start at 19:30 Dextrose (D50w (Vial) Inj) 50 ml UNSCH PRN IV HYPOGLYCEMIA-SEE COMMENTS; Start 09/22/16 at 19:30 Glucagon (Glucagon Inj) 1 mg UNSCH PRN OTHER HYPOGLYCEMIA-SEE COMMENTS; Start 09/22/16 at 19:30 Insulin Aspart (NovoLOG SUPPLEMENTAL SCALE) 1 ACHS SLIDING SCALE SQ Last administered on 10/03/16 11:50; Start 09/22/16 at 21:00 Albuterol/ Ipratropium (Duoneb Neb) 1 ampule Q4HR NEB PRN NEB SOB/WHEEZING Last administered on 09/29/16 03:17; Start 09/22/16 at 20:00 Morphine Sulfate (Morphine Inj) 2 mg Q3H PRN IV PAIN > 5/10 Last administered on 09/22/16 20:44; Start 09/22/16 at 20:15; Stop 09/22/16 at 23:02; Status DC Hydromorphone HCl (Dilaudid Pf Inj) 1 mg Q3HR PRN IV PUSH pain >5 Last administered on 09/30/16 08:53; Start 09/22/16 at 23:15; Stop 09/30/16 at 09:32 ; Status DC Albuterol/ Ipratropium 1 ampule 1 ampule Q4HR NEB PRN NEB wheezing; Start 09/22 at 23:15 Dextrose/Sodium Chloride (D5W-NS 1000 ml Inj) 1,000 ml @ 42 mls/hr [id number] IV Last administered on 10/02/16 06:13; Start 09/23/16 at 07:30 Atenolol (Tenormin) 50 mg DAILY PO Last administered on 09/28/16 08:57; Start 09/23/16 at 09:00 Bumetanide (Bumetanide) 1 mg BID PO Last administered on 10/03/16 08:53; Start 09/23/16 at 09:00 Bupropion HCl (Wellbutrin) 100 mg BID PO Last administered on 10/03/16 08:54; Start 09/23/16 at 09:00 Carisoprodol (Soma) 350 mg BID PRN PO MUSCLE SPASM Last administered on 11:16; Start 09/23/16 at 07:45 Dicyclomine HCl (Bentyl) 20 mg TID PRN PO ABDOMINAL DISCOMFORT Last administered on 10/03/16 04:39; Start 09/23/16 at 07:45 Digoxin (Lanoxin) 0.125 mg DAILY PO Last administered on 10/03/16 08:54; Start 09/23/16 at 09:00 Acetaminophen/ Hydrocodone Bitart (Narvon 10-325 Mg) 1 tab Q6H PRN PO PAIN 1-5; Start 09/23/16 at 07:45; Stop 09/30/16 at 09:32; Status DC Lorazepam (Ativan) 0.5 mg Q6H PRN PO ANXIETY Last administered on 10/03/16 01: 11; Start 09/23/16 at 07:45 Pantoprazole Sodium (Protonix) 40 mg DAILY PO Last administered on 10/03/16 08 :54; Start 09/23/16 at 09:00 Potassium Chloride (KCl) 20 meq DAILY PO Last administered on 10/03/16 08:55; Start 09/23/16 at 09:00 Spironolactone (Aldactone) 25 mg BIDPC PO Last administered on 10/03/16 08:55 ; Start 09/23/16 at 09:00 Tiotropium [place] (Spiriva Inh) 18 mcg DAILY INH Last administered on 09:00; Start 09/23/16 at 09:00 Triamcinolone Acetonide (Aristocort 0.1% Oint) 1 applic BID TOPICAL Last administered on 10/03/16 08:56; Start 09/23/16 at 09:00 Calcium/Vitamin D (Oscal-D 250-125) 500 mg BID PO Last administered on 08:55; Start 09/23/16 at 09:00 Ondansetron HCl (Zofran Odt) 4 mg Q6H PRN PO NAUSEA OR VOMITING Last administered on 09/23/16 23:08; Start 09/23/16 at 08:30 Hydromorphone HCl (Dilaudid Pf Inj) 2 mg STK-MED ONCE .ROUTE Last administered on 09/23/16 11:35; Start 09/23/16 at 11:35; Stop 09/23/16 at 11:36; Status DC Thrombin (Thrombin Top Soln) 5,000 units STK-MED ONCE .ROUTE ; Start 09/23/16 at 11:35; Stop 09/23/16 at 11:36; Status DC Warfarin Sodium (Coumadin) 5 mg DAILY@1600 PO Last administered on 09/30/16 15 :51; Start 09/23/16 at 16:00; Stop 10/01/16 at 10:17; Status DC Patient Medication Teaching (Coumadin Booklet) 1 ONCE ONCE OTHER Last administered on 09/23/16 17:34; Start 09/23/16 at 16:00; Stop 09/23/16 at 16:01 ; Status DC Nitroglycerin 0.4 mg 0.4 mg Q5M PRN SL CHEST PAIN; Start 09/23/16 at 19:45; Status Hold Vancomycin HCl 1000 mg/Sodium Chloride 250 ml @ 250 mls/hr ONCE ONCE IV Last administered on 09/23/16 23:14; Start 09/23/16 at 20:15; Stop 09/23/16 at 21:14 ; Status DC Cefepime HCl/ Sodium Chloride (Maxipime Inj/NS Inj) 100 ml @ 200 mls/hr DAILY@ 04,16 IV Last administered on 09/30/16 04:22; Start 09/24/16 at 04:15; Stop at 09:32; Status DC Phytonadione (Vitamin K Inj) 5 mg ONCE ONCE SQ Last administered on 09/26/16 11:58; Start 09/26/16 at 11:30; Stop 09/26/16 at 11:31; Status DC Fentanyl Citrate (fentaNYL INJ) 100 mcg STK-MED ONCE .ROUTE Last administered on 09/26/16 14:38; Start 09/26/16 at 14:38; Stop 09/26/16 at 14:39; Status DC Docusate Sodium (Colace) 100 mg BID PO Last administered on 10/03/16 08:52; Start 09/29/16 at 21:00 Mupirocin (Bactroban 2% Oint) APPLY TO EARLOBES BID TOPICAL Last administered on 10/03/16 08:56; Start 09/29/16 at 21:00 Doxycycline Hyclate (Vibramycin) 100 mg BID PO Last administered on 10/03/16 08:52; Start 09/30/16 at 09:45 Oxycodone/ Acetaminophen (Percocet 5-325 Mg) 1 tab Q4H PRN PO pain 1-6; Start 09/30/16 at 09:30 Oxycodone/ Acetaminophen (Percocet 10-325 Mg) 1 tab Q4H PRN PO pain 7-10 Last administered on 10/03/16 09:12; Start 09/30/16 at 09:30 Polyethylene Glycol 17 gm 17 gm DAILY PO Last administered on 10/03/16 08:52; Start 09/30/16 at 09:45 Pharmacy Profile Note (Coumadin Consult Pharmacy) 0 ml @ 0 mls/hr UNSCH OTHER ; Start 10/01/16 at 10:15 Warfarin Sodium (Coumadin) 6 mg DAILY@1600 PO Last administered on 10/02/16 16 :16; Start 10/01/16 at 16:00; Status Hold Sodium Biphosphate/ Sodium Phosphate (Fleets Enema (Adult)) 133 ml ONCE ONCE RECTAL Last administered on 10/01/16 14:30; Start 10/01/16 at 14:30; Stop at 14:31; Status DC Sodium Biphosphate/ Sodium Phosphate (Fleets Enema (Adult)) 133 ml ONCE ONCE RECTAL Last administered on 10/02/16 16:51; Start 10/02/16 at 11:15; Stop at 11:16; Status DC A/P Problem List: (1) Pseudoaneurysm following procedure ICD Code: I99.8 Status: Acute (2) DM (diabetes mellitus) ICD Code: E11.9 Status: Chronic (3) A-fib ICD Code: I48.91 Status: Chronic (4) HTN (hypertension) ICD Code: I10 Status: Chronic (5) CKD (chronic kidney disease) stage 3, GFR 30-59 ml/min ICD Code: N18.3 Status: Chronic (6) Groin hematoma ICD Code: S30.1XXA Status: Acute (7) Atrial fibrillation, currently in sinus rhythm ICD Code: I48.91 Status: Chronic Assessment and Plan Left groin pseudoaneurysm following cardiac procedure: -Pain controlled. Appreciate vascular surgery recommendations. Per Dr. Rowell, no need for intervention at this time. Coumadin restarted per cardiology recommendations. -f[employer] sharpshooter was consulted signed off stated to monitor CBC. -Doing well on Percocet. -Hemoglobin continues to be stable with Coumadin. Hypertension - Blood pressure is better controlled. Diabetes mellitus - Diet controlled. Monitor Accu-Cheks and cover with sliding scale insulin. COPD, asthma: -asymptomatic. -Oxygen, bronchodilators as needed. History of hepatitis C - Outpatient follow-up. Chronic kidney disease stage III - Stable. Monitor BUN, Creatinine. History of atrial fibrillation -on coumadin. INR went from 1-1.8-2.8. Concerning for a fast increase rate especially in the setting of hematoma. Will need to hold Coumadin again today and monitor INR tomorrow. Dealt with pharmacist. Fever, chest pain: CXR is negative. Blood cultures are negative so far. -asymptomatic. clinically looks well. she was started on cefepime and I do not see any indication to continue with medication. -no signs of PNA. -d/c cefepime and on doxycycline to treat questionable PNA. will d/c after 7 days of total treatment. Anemia: -s/p 2 units PRBCs. -continue to monitor H/H. Thrombocytopenia: - Stable. No signs of active bleeding. -continue to monitor. Hematoma, left groin -Status post percutaneous drainage by interventional radiology. -continue to monitor. Lower abdominal pain -Most likely secondary to constipation. KUB shows lots of stools. -Patient is on Colace and MiraLAX. Status post prune juice and enemas. Will try lactulose. -Continue to monitor clinically. Urinary retention, mild -Most likely secondary to narcotic and decreased ambulation. Patient told to try to decrease narcotic use. DVT prophylaxis -On Coumadin. Discharge Planning Due to quick increase rate of INR from 1-1.8-2.8 in the setting of a hematoma and history of bleeding. We'll need to monitor for stability. Problem Qualifiers (1) DM (diabetes mellitus): Ksenia Hankins MD October 03, 2016 11:57
[2016-10-03 12:00] VITALS: BP 115/57; PULSE 82; RESP 17; TEMP 97.4; O2SAT 98
[2016-10-03] MEDS: LACTULOSE SYRUP 20 GM/30 ML CUP PO SCH ×2 (12:21→17:20)
[2016-10-03 16:00] VITALS: BP 132/62; PULSE 83; RESP 18; TEMP 98.4; O2SAT 99
[2016-10-03 20:00] VITALS: BP 116/60; PULSE 91; RESP 18; TEMP 98.5; O2SAT 98
[2016-10-04] VITALS: BP 133/71; PULSE 80; RESP 17; TEMP 98.2; O2SAT 98
[2016-10-04] MEDS: oxyCODONE/ACETAMINOPHEN 10 MG/325 MG TAB PO PRN ×3 (02:17→09:50)
[2016-10-04] MEDS: DEXT 5%-NACL 0.9% 1000 ML INJ 1,000 ML IV SCH (02:21)
[2016-10-04 04:00] VITALS: BP 106/53; PULSE 73; RESP 17; TEMP 97.1; O2SAT 98
[2016-10-04 05:41] LABS: BICARBONATE 34.6 MEQ/L (21.0-32.0); POTASSIUM 3.7 MEQ/L (3.5-5.1)
[2016-10-04 05:42] LABS: INTERNATIONAL NORMALIZED RATIO 2.9 RATIO; PROTHROMBIN TIME - PATIENT 33.9 SEC (9.8-11.6)
[2016-10-04 05:46] LABS: HEMATOCRIT 28.2 % (35.0-46.0); MEAN CELL VOLUME 94.8 FL (80.0-100.0); MEAN CORPUSCULAR HEMOGLOBIN 31.4 PG (27.0-34.0); MEAN CORPUSCULAR HGB CONC 33.1 % (32.0-36.0); PLATELET COUNT 138 TH/MM3 (150-450); RED BLOOD COUNT 2.97 MIL/MM3 (4.00-5.30); RED CELL DISTRIBUTION WIDTH 17.3 % (11.6-17.2); REVIEW FLAG FINAL; WHITE BLOOD COUNT 7.5 TH/MM3 (4.0-11.0)
[2016-10-04] MEDS: INSULIN ASPART SUPPLEMENTAL SCALE SQ SCH (06:11)
[2016-10-04] MEDS: DICYCLOMINE HCL 20 MG TAB PO PRN (06:12)
[2016-10-04 08:00] VITALS: BP 97/58; PULSE 85; RESP 16; TEMP 97.9; O2SAT 97
[2016-10-04] MEDS: LACTULOSE SYRUP 20 GM/30 ML CUP PO SCH (09:00)
[2016-10-04] MEDS: POLYETHYLENE GLYCOL 17 GM PKG PO SCH (09:00)
[2016-10-04] MEDS: SODIUM CHLORIDE 0.9% FLUSH 10 ML FLUSH IV FLUSH SCH (09:00)
[2016-10-04] MEDS ORDERED: SENN8.6T15 PO (09:30)
[2016-10-04] MEDS ORDERED: DOCU1CAP39 PO (09:30)
[2016-10-04] MEDS ORDERED: COUM3TAB PO (09:30)
[2016-10-04] MEDS ORDERED: Lactulose Liq PO (09:30)
[2016-10-04] MEDS ORDERED: OXYC1TAB63 PO (09:30)
--- NOTE | 2016-10-04 09:30 | HHI.DCPOC ---
Discharge Care Plan Diagnosis: (1) Atrial fibrillation, currently in sinus rhythm (2) Groin hematoma (3) Pseudoaneurysm following procedure (4) Constipation (5) Supratherapeutic INR Goals to Promote Your Health * To prevent worsening of your condition and complications * To maintain your health at the optimal level Directions to Meet Your Goals Take your medications as prescribed Follow your dietary instruction Follow activity as directed Keep your appointments as scheduled Take your immunizations and boosters as scheduled If your symptoms worsen call your PCP, if no PCP go to Urgent Care Center or Emergency Room Smoking is Dangerous to Your Health. Avoid second hand smoke Call the 24-hour hour crisis hotline for domestic abuse at Ksenia Hankins MD October 04, 2016 09:30
--- NOTE | 2016-10-04 09:30 | HHI.DS ---
Discharge Summary Admission Date September 22, 2016 at 22:58 Discharge Date: October 04, 2016 Admitting Diagnosis left inguinal femoral artery pseudoaneurysm (1) Pseudoaneurysm following procedure ICD Code: I99.8 Diagnosis: Principal (2) DM (diabetes mellitus) ICD Code: E11.9 Diagnosis: Secondary (3) A-fib ICD Code: I48.91 Diagnosis: Secondary (4) HTN (hypertension) ICD Code: I10 Diagnosis: Secondary (5) CKD (chronic kidney disease) stage 3, GFR 30-59 ml/min ICD Code: N18.3 Diagnosis: Secondary (6) Groin hematoma ICD Code: S30.1XXA Diagnosis: Principal (7) Atrial fibrillation, currently in sinus rhythm ICD Code: I48.91 Diagnosis: Secondary Procedures 09/26/16 ultrasound-guided drainage of left groin hematoma Brief History - From Admission History from patient, ER physician communication, and review of medical records. Patient reported that she had a device placed in her atrium for management of her atrial fibrillation by Dr. Rowell on Monday and [facility]. She stated she was doing well after that for the next 1 day or so. However starting yesterday, she started having severe pain in her left groin area which limits her from walking at all. She therefore came to hospital. Further workup in emergency room reveals large pseudoaneurysm. Apart from the pain in the groin area, patient denies any recent fever/nausea/ vomiting/diarrhea/urinary burning or pain on urination. She denies any hematemesis/hematochezia/melena/hematuria. Patient reports that she has been on Coumadin for past 45 days prior to the procedure. She stated that the plan was for her to have JESUS post procedure and if there was no clots, she was supposed to be switched to Plavix and aspirin. In essentially, she stated that she would be switched to aspirin alone therapy. She reports this procedure was done because she was having trouble with anticoagulation due to her history of GI bleeds. CBC/BMP: 10/04/16 0450 10/04/16 0450 Significant Findings Laboratory Tests Test 5/10/03/16 10/04/16 05:08 05:55 04:50 Red Blood Count 2.93 MIL/MM3 2.92 MIL/MM3 2.97 MIL/MM3 (4.00-5.30) (4.00-5.30) (4.00-5.30) Hemoglobin 9.1 GM/DL 9.3 GM/DL 9.3 GM/DL (11.6-15.3) (11.6-15.3) (11.6-15.3) Hematocrit 27.6 % 27.5 % 28.2 % (35.0-46.0) (35.0-46.0) (35.0-46.0) Platelet Count 134 TH/MM3 147 TH/MM3 138 TH/MM3 (150-450) (150-450) (150-450) Prothrombin Time 20.3 SEC 32.1 SEC 33.9 SEC (9.8-11.6) (9.8-11.6) (9.8-11.6) Carbon Dioxide Level 36.7 MEQ/L 35.5 MEQ/L 34.6 MEQ/L (21.0-32.0) (21.0-32.0) (21.0-32.0) Anion Gap 4 MEQ/L (5-15) Blood Urea Nitrogen 20 MG/DL (7-18) 22 MG/DL (7-18) 20 MG/DL (7-18) Creatinine 1.10 MG/DL 1.07 MG/DL 1.02 MG/DL (0.50-1.00) (0.50-1.00) (0.50-1.00) Estimat Glomerular Filtration 50 ML/MIN (>89) 51 ML/MIN (>89) 54 ML/MIN (>89) Rate Random Glucose 131 MG/DL 166 MG/DL (74-106) (74-106) Calcium Level 8.2 MG/DL 8.4 MG/DL 8.1 MG/DL (8.5-10.1) (8.5-10.1) (8.5-10.1) Red Cell Distribution Width 17.3 % (11.6-17.2) Chloride Level 97 MEQ/L (98-107) Imaging Last Impressions Abdomen X-Ray 10/01/16 0000 Signed Impressions: Service Date/Time: Saturday, October 01, 2016 10:17 - CONCLUSION: No acute abdominal abnormality is identified. There is a large amount of stool present. Dmitry Diallo MD Abscess Drainage X-Ray 09/26/16 0000 Signed Impressions: Service Date/Time: Monday, September 26, 2016 13:56 - CONCLUSION: 1. Uncomplicated left groin hematoma drainage as above. 2. On ultrasound evaluation, the patient appears to have a very small connection between the common femoral artery and the adjacent greater saphenous vein. Findings were discussed with Dr. Muir from vascular surgery. Juan Logan MD Lower Extremity Ultrasound 09/25/16 0000 Signed Impressions: Service Date/Time: Sunday, September 25, 2016 12:51 - CONCLUSION: 1. Pseudoaneurysm and hematoma. Min Mae MD Chest X-Ray 09/23/16 0000 Signed Impressions: Service Date/Time: Friday, September 23, 2016 20:08 - CONCLUSION: No evidence of acute cardiopulmonary disease or significant change. Dmitry Gallo MD PE at Discharge GENERAL: in NAD NECK: Supple, trachea midline. No JVD or lymphadenopathy. CARDIOVASCULAR: Regular rate and rhythm without murmurs, gallops, or rubs. RESPIRATORY: Breath sounds equal bilaterally. No accessory muscle use. GASTROINTESTINAL: Abdomen soft, nondistended + mild TTP in lower abdomen. No peritoneal signs MUSCULOSKELETAL: left thigh/groin area soft hematoma that improved. no TTP . no ecchymosis. BACK: Nontender without obvious deformity. No CVA tenderness. Pt update on day of discharge f/u for hematoma and INR patient stated she is having good BM. She stated she is ambulating better. She has no complaints. Pain is controlled. patient stated she has been on coumadin in the past and was on 3 mg. She stated she does well on 3 mg and her PCP follows her INR. She stated she will be able to see her PCP this week in regards to f/u with INR. Hospital Course Left groin pseudoaneurysm following cardiac procedure: -vascular surgery was consulted. Per Dr. Rowell, no need for intervention at this time. Coumadin restarted per cardiology recommendations. -auditor/quality was consulted signed off stated to monitor CBC. -Doing well on Percocet. -since hematoma was improving and H/H table coumadin was restarted and H/H and hematoma continued to be stable on coumadin with therapeutic INR. Hypertension - home medication resumed. Diabetes mellitus - Diet controlled. Monitor Accu-Cheks and cover with sliding scale insulin. COPD, asthma: -asymptomatic. -Oxygen, bronchodilators as needed. History of hepatitis C - Outpatient follow-up. Chronic kidney disease stage III - Stable. Monitor BUN, Creatinine. History of atrial fibrillation -see coumadin treatment as above. patient coumadin trend up quickly, but then stabilized. On the day of discharge she was told to hold coumadin for another day and see PCP then resumed coumadin 3 mg daily as directed by her PCP> Fever, chest pain: CXR is negative. Blood cultures are negative so far. -asymptomatic. clinically looks well. she was started on cefepime and I do not see any indication to continue with medication. -no signs of PNA. -d/c cefepime and on doxycycline to treat questionable PNA. she got a total of 7 days and was asymptomatic. Anemia: -s/p 2 units PRBCs. -continue to monitor H/H. Thrombocytopenia: -IMPROVED. No signs of active bleeding. -continue to monitor. Hematoma, left groin -Status post percutaneous drainage by interventional radiology. -continue to monitor. Lower abdominal pain -Most likely secondary to constipation. KUB shows lots of stools. -patient put on multiple stool laxatives, enemas and softener with improvement of abdominal pain. -encourage to decrease pain medication and increase ambulation. Urinary retention, mild -Most likely secondary to narcotic and decreased ambulation. Patient told to try to decrease narcotic use. -improved during hospitalization. Pt Condition on Discharge: Good Discharge Disposition: Discharge Home Discharge Time: > 30 minutes Discharge Instructions DIET: Follow Instructions for: Heart Healthy Diet, Diabetic Diet, Coumadin ( Warfarin) Diet Activities you can perform: Regular-No Restrictions Follow up Referrals: Appointment for Follow Up - 1 Week with Karon Rowell MD Cardiology - 1 Week PCP Follow-up - 2 Days New Medications: Warfarin (Coumadin) 3 Mg Tab 3 MG PO DAILY You will need a repeat INR on October 06, 2016. Restart coumadin on if okay with your Primary Care physician or [facility]. Prevent Blood Clot #10 Ref 0 TAB Docusate Sodium (Dok) 100 Mg Cap 100 MG PO BID constipation #30 Ref 0 CAP Oxycodone-Acetaminophen (Oxycodone-Acetaminophen) 5-325 mg Tab 1 TAB PO Q4H PRN pain #10 Ref 0 TAB Sennosides (Senna Lax) 8.6 Mg Tab 17.2 MG PO Q12H PRN CONSTIPATION #30 Ref 0 TAB ([Lactulose Liq]) 30 ML SYRP 30 ML PO DAILY constipation #200 Ref 0 ML Continued Medications: Albuterol 18 GM Inh (Ventolin Hfa 18 GM Inh) 90 Mcg/Act Aer 2 PUFF INH Q4-6H PRN SHORTNESS OF BREATH #1 Ref 0 INHALER Atenolol (Atenolol) 50 Mg Tab 50 MG PO DAILY Blood Pressure Management #30 Ref 0 TAB Bumetanide (Bumetanide) 1 Mg Tab 1 MG PO BID #60 Ref 0 TAB Bupropion HCl (Bupropion HCl) 100 Mg Tab 100 MG PO BID Control Depression Ref 0 TAB Calcium Carbonate-Cholecalciferol (Caltrate 600+D) 600-800 Mg-Unit Tab 1 TAB PO BID Calcium Supplement Ref 0 TAB Carisoprodol (Soma) 350 Mg Tab 350 MG PO PRN PRN PAIN Ref 0 TAB Dicyclomine (Bentyl) 20 Mg Tab 20 MG PO TID PRN prn Ref 0 TAB Digoxin (Digoxin) 0.125 Mg Tab 0.125 MG PO DAILY Regulate Heart Beat #30 Ref 0 TAB Fluticasone-Salmeterol Inh (Advair Diskus Inh) 500-50 Mcg/Blist Aer 1 PUFF INH BID Rinse mouth after use. #1 Ref 0 INHALER Hydrocodone-Acetaminophen ([place]) 10-325 Mg Tab 1 TAB PO Q6H PRN PAIN Ref 0 TAB Lorazepam (Lorazepam) 0.5 Mg Tab 0.5 MG PO Q6H PRN prn Ref 0 TAB Ondansetron (Zofran) 4 Mg Tab 4 MG PO Q6HR PRN NAUSEA OR VOMITING Ref 0 TAB Pantoprazole (Protonix) 40 Mg Tab 40 MG PO DAILY Reflux #30 Ref 0 TAB Potassium Chloride ER (Potassium Chloride ER) 20 Meq Tab 20 MEQ PO DAILY Electrolyte Replacement #30 Ref 0 TAB Spironolactone (Spironolactone) 25 Mg Tab 25 MG PO BIDPC #60 Ref 0 TAB Tiotropium Inh (Spiriva Handihaler) 18 Mcg Cap 18 MCG INH DAILY 1 capsule = 18 mcg COPD #30 Ref 0 CAP Triamcinolone Topical (Triamcinolone Topical) 0.1 % Oint 1 APPLIC TOPICAL BID Inflammation Ref 0 GM Ksenia Hankins MD October 04, 2016 09:30
[2016-10-04] MEDS: DOXYCYCLINE HYCLATE 100 MG CAP PO SCH (09:47)
[2016-10-04] MEDS: POTASSIUM CHLORIDE 20 MEQ CONTROLLED RELEASE TAB PO SCH (09:47)
[2016-10-04] MEDS: CALCIUM/VITAMIN D 250 MG/125 U TAB PO SCH (09:47)
[2016-10-04] MEDS: DOCUSATE SODIUM 100 MG CAP PO SCH (09:47)
[2016-10-04] MEDS: buPROPion HCL 100 MG TAB PO SCH (09:48)
[2016-10-04] MEDS: PANTOPRAZOLE SOD 40 MG DELAYED RELEASE TAB PO SCH (09:48)
[2016-10-04] MEDS: DIGOXIN 0.125 MG TAB PO SCH (09:48)
[2016-10-04] MEDS: ATENOLOL 50 MG TAB PO SCH (09:48)
[2016-10-04] MEDS: BUMETANIDE 1 MG TAB PO SCH (09:49)
[2016-10-04] MEDS: SPIRONOLACTONE 25 MG TAB PO SCH (09:49)
[2016-10-04] MEDS: TIOTROPIUM BROMIDE 18 MCG INH INH SCH (09:50)
[2016-10-04] MEDS: MUPIROCIN 2% OINT 22 GM TUBE TOPICAL SCH (09:51)
[2016-10-04] MEDS: TRIAMCINOLONE ACETONIDE 0.1% OINT 15 GM TUBE TOPICAL SCH (09:51)
== END 2016-10-04 11:24 | disposition home or self-care (01) | DRG 300 ==
LOC: NEDAMB 14:54 → NEDA 19:11 → NEPGCP 21:52 → OBSVTOIN 22:58 → N07A 09-23 18:52
PROVIDERS: ADMIT Family Medicine; ATTEND Family Medicine
PROC: 30233N1 Transfusion of Nonautologous Red Blood Cells into Peripheral Vein, Percutaneous Approach (ICD-10-PCS; principal; 2016-09-22)
PROC: 0J9C3ZZ Drainage of Pelvic Region Subcutaneous Tissue and Fascia, Percutaneous Approach (ICD-10-PCS; 2016-09-26)
DX: I72.4 Aneurysm of artery of lower extremity (principal); I13.0 Hypertensive heart and chronic kidney disease with heart failure and stage 1 through stage 4 chronic kidney disease, or unspecified chronic kidney disease; E11.22 Type 2 diabetes mellitus with diabetic chronic kidney disease; D69.6 Thrombocytopenia, unspecified; I50.9 Heart failure, unspecified; N18.3 Chronic kidney disease, stage 3 (moderate); K51.911 Ulcerative colitis, unspecified with rectal bleeding; J44.9 Chronic obstructive pulmonary disease, unspecified; B19.20 Unspecified viral hepatitis C without hepatic coma; D64.9 Anemia, unspecified; I48.2 Chronic atrial fibrillation; K21.9 Gastro-esophageal reflux disease without esophagitis; K59.00 Constipation, unspecified; K74.60 Unspecified cirrhosis of liver; M06.9 Rheumatoid arthritis, unspecified; R33.9 Retention of urine, unspecified; S30.1XXA Contusion of abdominal wall, initial encounter; Z79.01 Long term (current) use of anticoagulants; Z85.43 Personal history of malignant neoplasm of ovary; Z85.44 Personal history of malignant neoplasm of other female genital organs; Z92.21 Personal history of antineoplastic chemotherapy
CPT/HCPCS: 10160; 36430; 71010; 74000; 76942; 80048; 80053; 80162; 81001; 82550; 82552; 82948; 83735; 84484; 85007; 85014; 85018; 85025; 85027; 85384; 85610; 85730; 86850; 86900; 86901; 86920; 87040; 93005; 93925; 93926; 94640; 94664; 96374; 96375; J0692; J1170; J1815; J2270; J2405; J3010; J3370; J3430; J7042; J7050; P9016

== ENCOUNTER 2017-08-04 08:56 | Day surgery (SDC) | payer OTHER ==
[~2017-08-04] VITALS: Ht 165.1 cm; Wt 86.6 kg
[~2017-08-04 08:56] MED LIST changes: +COUM3TAB PO; +DOCU1CAP39 PO; -HYDR-3533 PO; -LORA-373 PO; +LORA0.5T PO; +Lactulose Liq PO; -METR-1 PO; +OXYC1TAB63 PO; +SENN1TAB27 PO; +SOMA350T PO; +TRIAM.1%T TOPICAL
[2017-08-04 09:10] VITALS: BP 144/86; PULSE 65; RESP 20; TEMP 98.7; O2SAT 98
[2017-08-04] MEDS ORDERED: GLIP-158 PO (09:47)
[2017-08-04] MEDS ORDERED: EMPA1TAB PO (09:47)
[2017-08-04] MEDS ORDERED: BETH10TA2 PO (09:47)
[2017-08-04] MEDS ORDERED: CYAN1TAB24 (09:47)
[2017-08-04] MEDS ORDERED: ASPI-183 PO (09:47)
[2017-08-04] MEDS ORDERED: FE FCAP2 (09:47)
[2017-08-04] MEDS ORDERED: IMPLANTED VASCULAR ACCESS PORT - SODIUM CHLORIDE FLUSH PRN IV FLUSH (10:00)
[2017-08-04] MEDS ORDERED: IMPLANTED VASCULAR ACCESS PORT - SODIUM CHLORIDE FLUSH IV FLUSH SCH (10:00)
[2017-08-04] MEDS ORDERED: LIDOCAINE HCL 1% 30 ML VIAL ONE (10:01)
[2017-08-04] MEDS ORDERED: MIDAZOLAM HCL 5 MG/5 ML VIAL ONE (10:13)
[2017-08-04] MEDS ORDERED: fentaNYL CITRATE 250 MCG/5 ML AMP ONE (10:13)
[2017-08-04] MEDS ORDERED: MIDAZOLAM HCL 2 MG/2 ML VIAL ONE (10:45)
--- NOTE | 2017-08-04 11:17 | PD.RAD ---
Post CT Procedure Prog Note Pre Procedure Diagnosis: (1) Abdominal or pelvic swelling, mass, or lump, left lower quadrant Post Procedure Diagnosis: (1) Abdominal or pelvic swelling, mass, or lump, left lower quadrant Procedure Date: Aug 04, 2017 Supervising Radiologist: Ravindra Sosa Anesthesia: Local, Conscious Sedation Plan of Activity Patient to Unit: ROPU Patient Condition: Good See PACS Report for procedural detail/treatment Biopsy Imaging Guidance: CT Side: Left Biopsy Procedure: Lymph Node, Pelvic Mass Specimen: Core Biopsy Ravindra Sosa MD Aug 04, 2017 11:17
[2017-08-04 11:25] VITALS: BP 120/66; PULSE 64; RESP 18; TEMP 97.8; O2SAT 94
[2017-08-04 11:40] VITALS: BP 119/69; PULSE 63; RESP 16; O2SAT 94
--- NOTE | 2017-08-04 12:00 | RADRPT ---
EXAM DATE/TIME: 08/04/2017 10:33 [place] COMPARISON: No previous studies available for comparison. INDICATIONS : Pelvic mass. SEDATION TIME: 45 minutes BIOPSY SITE: Left posterior pelvis MEDICATION(S): 1.) 6.5 mg midazolam (Versed) IV 2.) 150 mcg fentanyl (Sublimaze) IV DEVICE(S): 1.) 18 gauge Quinones blunt needle 2.) 20 gauge Temno core biopsy needle MEDICAL HISTORY : Cirrhosis. Diverticulosis. Ulcerative colitis. 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 SURGICAL HISTORY : Cholecystectomy Hysterectomy. Hernia repair. ENCOUNTER: Initial ACUITY: 1 day PAIN SCORE: 2/10 LOCATION: Left pelvis A total of three core specimen(s) were obtained and sent to the laboratory for pathologic evaluation. PROCEDURE: 1. CT guided pelvic biopsy. Prior to the procedure informed consent was obtained. Any appropriate prior imaging studies were rev iewed. Using automated exposure control and adjustment of the mA and/or kV according to patient size, radiat ion dose was kept as low as reasonably achievable to obtain optimal diagnostic quality images. DICOM format image data is available electronically for review and comparison. The site was prepped in a sterile fashion. Full sterile technique was used, including cap, mask, eric rile gloves and gown and a large sterile sheet. Hand hygiene and 2% chlorhexidine and/or betadine/al cohol prep was utilized per protocol for cutaneous antisepsis. The skin and subcutaneous tissues wer e infiltrated with local anesthetic solution. With CT guidance the previously identified target in the left side of the pelvis was localized. Biops y was performed using the prescribed needle as above. Adequate hemostasis was obtained with compress ion at the puncture site. Follow-up CT scan reveals no hemorrhage. The patient tolerated the procedure well and there were no complications. The patient was returned to the Radiology Outpatient Unit in stable condition. CONCLUSION: Uncomplicated CT guided biopsy of a left-sided pelvic mass. Ravindra Sosa MD on August 04, 2017 at 11:55 Board Certified Radiologist. This report was verified electronically.
[2017-08-04 12:10] VITALS: BP 125/65; PULSE 65; RESP 16; O2SAT 94
[2017-08-04 12:40] VITALS: BP 116/68; PULSE 57; RESP 16; O2SAT 94
== END 2017-08-04 13:30 | disposition home or self-care (01) ==
LOC: HRIP 08:56 → HRAD 08:56
PROVIDERS: ATTEND Obstetrics & Gynecology Gynecologic Oncology
DX: C79.89 Secondary malignant neoplasm of other specified sites (principal); C57.00 Malignant neoplasm of unspecified fallopian tube; K74.60 Unspecified cirrhosis of liver; B19.20 Unspecified viral hepatitis C without hepatic coma; I25.10 Atherosclerotic heart disease of native coronary artery without angina pectoris; I10 Essential (primary) hypertension; E11.9 Type 2 diabetes mellitus without complications; K57.90 Diverticulosis of intestine, part unspecified, without perforation or abscess without bleeding; K51.90 Ulcerative colitis, unspecified, without complications
CPT/HCPCS: 49180; 77012; 88307; 99152; 99153; J2250; J3010; 88305

== ENCOUNTER 2017-09-27 15:28 | Observation (INO) | payer OTHER, MEDICAID ==
[~2017-09-27] VITALS: Ht 162.6 cm; Wt 94.1 kg
[~2017-09-27 15:28] MED LIST changes: +ASPI-183 PO; -BENT20TA PO; +BETH10TA2 PO; -COUM3TAB PO; +CYAN1TAB24; -DOCU1CAP39 PO; +EMPA1TAB PO; +FE FCAP2; +GLIP-158 PO; -HYDR-3366 PO; -LORA0.5T PO; -Lactulose Liq PO; -OXYC1TAB63 PO; -PROT40TA PO; -SOMA350T PO; -TRIAM.1%T TOPICAL
[2017-09-27 15:38] VITALS: BP 191/87; PULSE 85; RESP 17; TEMP 99.5; O2SAT 98
[2017-09-27] MEDS ORDERED: SODIUM CHLOR 0.9% 1000 ML INJ 1,000 ML IV ONE (15:52)
[2017-09-27] MEDS ORDERED: SODIUM CHLORIDE 0.9% FLUSH 10 ML FLUSH IVF PRN (16:00)
[2017-09-27] MEDS ORDERED: TOPI100 PO (16:05)
[2017-09-27] MEDS ORDERED: PROT40TA PO (16:05)
[2017-09-27] MEDS ORDERED: CALC1TAB34 PO (16:05)
[2017-09-27] MEDS ORDERED: RANI150T PO (16:05)
[2017-09-27] MEDS ORDERED: [UNRECOGNIZED DRUG - CODE] (16:08)
[2017-09-27 16:27] LABS: AUTOMATED NEUTROPHIL # 7.2 TH/MM3 (1.8-7.7); BASOPHIL # 0.1 TH/MM3 (0-0.2); BASOPHIL % 0.6 % (0.0-2.0); EOSINOPHIL # 0.1 TH/MM3 (0-0.4); EOSINOPHIL % 1.2 % (0.0-4.0); HEMATOCRIT 37.6 % (35.0-46.0); HEMOGLOBIN 12.7 GM/DL (11.6-15.3); LYMPH % 31.6 % (9.0-44.0); LYMPHOCYTE # 3.5 TH/MM3 (1.0-4.8); MEAN CELL VOLUME 96.1 FL (80.0-100.0); MEAN CORPUSCULAR HEMOGLOBIN 32.5 PG (27.0-34.0); MEAN CORPUSCULAR HGB CONC 33.9 % (32.0-36.0); MEAN PLATELET VOLUME 8.6 FL (7.0-11.0); MONO % 2.1 % (0.0-8.0); MONOCYTE # 0.2 TH/MM3 (0-0.9); NEUT % 64.5 % (16.0-70.0); PLATELET COUNT 114 TH/MM3 (150-450); RED BLOOD COUNT 3.91 MIL/MM3 (4.00-5.30); RED CELL DISTRIBUTION WIDTH 16.8 % (11.6-17.2); WHITE BLOOD COUNT 11.2 TH/MM3 (4.0-11.0)
[2017-09-27 16:42] LABS: ALBUMIN 3.3 GM/DL (3.4-5.0); AST (GOT) 18 U/L (15-37); BICARBONATE 21.1 MEQ/L (21.0-32.0); BLOOD UREA NITROGEN 44 MG/DL (7-18); CALCIUM 8.9 MG/DL (8.5-10.1); CHLORIDE 109 MEQ/L (98-107); CREATININE 1.38 MG/DL (0.50-1.00); GLOMERULAR FILTRATION RATE 38 ML/MIN (>89); GLUCOSE,RANDOM 151 MG/DL (74-106); MAGNESIUM 1.9 MG/DL (1.5-2.5); PROTHROMBIN TIME - PATIENT 9.7 SEC (9.8-11.6); SODIUM (NA) 142 MEQ/L (136-145)
[2017-09-27 16:43] LABS: ALT (GPT) 31 U/L (10-53)
--- NOTE | 2017-09-27 16:44 | PD ---
HPI Chief Complaint: Dizziness Time Seen by Provider: 15:39 Travel History International Travel<30 days: No Contact w/Intl Traveler<30days: No Traveled to known affect area: No History of Present Illness HPI 67-year-old female with PMH of recurrent ovarian cancer status post total hysterectomy, on chemotherapy, managed by Dr. Straks presents to the ED for evaluation of 1 week history of dizziness, worsened by change in position. Also complains of palpitations over the same period of time. She denies chest pain or shortness of breath. She does note that with deep breaths she has pain in the bilateral lower pelvic area and right side of the back. She endorses low -grade fever, less than 100 over the last few days. She denies sinus congestion , rhinorrhea, productive cough, shortness of breath, changes in bowel habits, melena, hematochezia, dysuria, numbness, tingling, weakness of the lower extremities. Patient takes digoxin. PFSH Past Medical History Hx Anticoagulant Therapy: Yes Anemia: Yes Arthritis: Yes (RHEUMATOID) Asthma: Yes Atrial Fibrillation: Yes Autoimmune Disease: Yes Blood Disorders: Yes Anxiety: Yes Depression: Yes Heart Rhythm Problems: Yes Cancer: Yes (OMENTUM) Cardiac Catheterization: Yes (2006 NEGATIVE) Cardiovascular Problems: Yes High Cholesterol: No Chemotherapy: Yes Chest Pain: Yes Congestive Heart Failure: Yes COPD: Yes Cerebrovascular Accident: No Coronary Artery Disease: No Diabetes: Yes Patient Takes Glucophage: No Diminished Hearing: No Endocrine: Yes Gastrointestinal Disorders: Yes (COLITIS ULCERATIVE, HEMORRHAGIC COLITIS) GERD: Yes Glaucoma: No Genitourinary: Yes Headaches: Yes Hepatitis: Yes (HEPATITIS C) Hiatal Hernia: Yes Hypertension: Yes Immune Disorder: Yes (RA, HEP C) Implanted Vascular Access Dvce: Yes (R UPPER CHEST ) Kidney Stones: Yes Musculoskeletal: Yes Neurologic: Yes Psychiatric: Yes Reproductive: Yes (HYSTERECTOMY) Respiratory: Yes (asthma, copd, bronchitis) Immunizations Current: No Migraines: Yes Myocardial Infarction: No Pneumonia: Yes Radiation Therapy: No Renal Failure: Yes Seizures: No Sickle Cell Disease: No Sleep Apnea: Yes Thyroid Disease: No Ulcer: Yes PNEUMOCCOCAL Vaccine (Year): 2007 ?: Not Menopausal: Yes : 2 Para: 2 Miscarriage: 0 : 0 Dilation and Curettage (D&C): Yes Past Surgical History Abdominal Surgery: Yes ( HERNIA REPAIR) AICD: No Appendectomy: No Arteriovenous Shunt: No Body Medical Devices: RIGHT SUBCLAVIAN PORT Cardiac Surgery: Yes (WATCHMAN IMPLANTED 2016) Cholecystectomy: Yes Ear Surgery: No Endocrine Surgery: No Eye Surgery: No Genitourinary Surgery: No Gynecologic Surgery: Yes (COLPOSCOPY; CRYO SURGERY) Hysterectomy: Yes (NOVEMBER 2014) Insulin Pump: No Joint Replacement: No Neurologic Surgery: No Oral Surgery: Yes (EXTRACTIONS) Pacemaker: No Thoracic Surgery: No Other Surgery: Yes (appendectomy, cholecystectomy, hysterectomy ) Social History Alcohol Use: No Tobacco Use: No Substance Use: No Allergies-Medications (Allergen,Severity, Reaction): Coded Allergies: amoxicillin (Verified Allergy, Severe, Ulcers, 09/27/17) azithromycin (Verified Allergy, Severe, Hives, 09/27/17) cat dander (Verified Allergy, Severe, cough, itching, 09/27/17) clavulanic acid (Verified Allergy, Severe, Ulcers, 09/27/17) mesalamine (Verified Allergy, Severe, Hives, 09/27/17) paclitaxel (Verified Allergy, Severe, Headache, 09/27/17) N/V trazodone (Verified Allergy, Intermediate, Generalized Rash, 09/27/17) anxiety Reported Meds & Prescriptions Reported Meds & Active Scripts Active Senna Lax (Sennosides) 8.6 Mg Tab 17.2 Mg PO Q12H PRN Reported Topotecan Inj 4 Mg Inj Ranitidine (Ranitidine HCl) 150 Mg Tab 150 Mg PO DAILY Protonix (Pantoprazole Sodium) 40 Mg Tab 40 Mg PO DAILY Caltrate 600+D Plus Minerals (Calcium Carbonate-Vitamin D W/Minerals) 600-800 Mg -Unit Tab 1 Tab PO BID Topamax (Topiramate) 100 Mg Tab 100 Mg PO BID Glipizide XL (Glipizide) 2.5 Mg Shanika 2.5 Mg PO DAILY Take with breakfast or first main meal of the day Jardiance (Empagliflozin) 10 Mg Tab 10 Mg PO DAILY B12 (Cyanocobalamin) 1,000 Mcg Tab Integra Plus (Multi-Vit/Iron-Vit C-F44-Zesgc Acid) 191-210-0.01-1 mg Cap Aspirin 325 Mg Tab 325 Mg PO DAILY Spiriva Handihaler (Tiotropium Inh) 18 Mcg Cap 18 Mcg INH DAILY 1 capsule = 18 mcg Spironolactone 25 Mg Tab 25 Mg PO BIDPC Potassium Chloride ER (Potassium Chloride) 20 Meq Tab 20 Meq PO DAILY Zofran (Ondansetron HCl) 4 Mg Tab 8 Mg PO Q6HR PRN Digoxin 0.125 Mg Tab 0.125 Mg PO DAILY Bupropion HCl 100 Mg Tab 100 Mg PO BID Bumetanide 1 Mg Tab 1 Mg PO BID Atenolol 50 Mg Tab 50 Mg PO DAILY Ventolin Hfa 18 GM Inh (Albuterol Sulfate) 90 Mcg/Act Aer 2 Puff INH Q4-6H PRN Advair Diskus Inh (Fluticasone-Salmeterol Inh) 500-50 Mcg/Blist Aer 1 Puff INH BID Rinse mouth after use. Review of Systems Except as stated in HPI: all other systems reviewed are Neg Physical Exam Narrative GENERAL: Well-nourished, well-developed pleasant white female in no acute distress. SKIN: Focused skin assessment warm, dry, pale. HEAD: Normocephalic. EYES: No scleral icterus. No injection or drainage. PERRLA. EOMI. NECK: Supple, trachea midline. No JVD or lymphadenopathy. CARDIOVASCULAR: Regular rate and rhythm without murmurs, gallops, or rubs. RESPIRATORY: Breath sounds clear and equal bilaterally. No accessory muscle use. GASTROINTESTINAL: Abdomen soft, nondistended. Active bowel sounds. Tender to palpation left lower quadrant. MUSCULOSKELETAL: No cyanosis, or edema. Moves extremities spontaneously. BACK: Nontender without obvious deformity. Positive right-sided CVA tenderness. Data Data Last Documented VS Vital Signs Date Time Temp Pulse Resp B/P (MAP) Pulse Ox O2 Delivery O2 Flow Rate FiO2 09/27/17 18:52 74 19 123/71 (88) 99 Room Air 09/27/17 15:38 99.5 Orders Orders Digoxin (09/27/17 15:52) Electrocardiogram (09/27/17 15:52) Complete Blood Count With Diff (09/27/17 15:52) Comprehensive Metabolic Panel (09/27/17 15:52) Magnesium (Mg) (09/27/17 15:52) Ckmb (Isoenzyme) Profile (09/27/17 15:52) Troponin I (09/27/17 15:52) Act Partial Throm Time (Ptt) (09/27/17 15:52) Prothrombin Time / Inr (Pt) (09/27/17 15:52) Urinalysis - C+S If Indicated (09/27/17 15:52) Chest, Single Ap (09/27/17 15:52) Ct Brain W/O Iv Contrast(Rout) (09/27/17 15:52) Ecg Monitoring (09/27/17 15:52) Iv Access Insert/Monitor (09/27/17 15:52) Oximetry (09/27/17 15:52) Sodium Chloride 0.9% Flush (Ns Flush) (09/27/17 16:00) Sodium Chlor 0.9% 1000 Ml Inj (Ns 1000 M (09/27/17 15:52) Morphine Inj (Morphine Inj) (09/27/17 16:45) Potassium Chloride (Kcl) (09/27/17 18:45) Oxycodone-Acetamin 10-325 Mg (Percocet 1 (09/27/17 18:45) Admit Order (Ed Use Only) (09/27/17 19:18) Labs Laboratory Tests Test 09/27/17 16:08 09/27/17 18:04 White Blood Count 11.2 TH/MM3 Red Blood Count 3.91 MIL/MM3 Hemoglobin 12.7 GM/DL Hematocrit 37.6 % Mean Corpuscular Volume 96.1 FL Mean Corpuscular Hemoglobin 32.5 PG Mean Corpuscular Hemoglobin Concent 33.9 % Red Cell Distribution Width 16.8 % Platelet Count 114 TH/MM3 Mean Platelet Volume 8.6 FL Neutrophils (%) (Auto) 64.5 % Lymphocytes (%) (Auto) 31.6 % Monocytes (%) (Auto) 2.1 % Eosinophils (%) (Auto) 1.2 % Basophils (%) (Auto) 0.6 % Neutrophils # (Auto) 7.2 TH/MM3 Lymphocytes # (Auto) 3.5 TH/MM3 Monocytes # (Auto) 0.2 TH/MM3 Eosinophils # (Auto) 0.1 TH/MM3 Basophils # (Auto) 0.1 TH/MM3 CBC Comment DIFF FINAL Differential Comment Prothrombin Time 9.7 SEC Prothromb Time International Ratio 1.0 RATIO Activated Partial Thromboplast Time 26.1 SEC Blood Urea Nitrogen 44 MG/DL Creatinine 1.38 MG/DL Random Glucose 151 MG/DL Total Protein 7.5 GM/DL Albumin 3.3 GM/DL Calcium Level 8.9 MG/DL Magnesium Level 1.9 MG/DL Alkaline Phosphatase 159 U/L Aspartate Amino Transf (AST/SGOT) 18 U/L Alanine Aminotransferase (ALT/SGPT) 31 U/L Total Bilirubin 0.5 MG/DL Sodium Level 142 MEQ/L Potassium Level 3.0 MEQ/L Chloride Level 109 MEQ/L Carbon Dioxide Level 21.1 MEQ/L Anion Gap 12 MEQ/L Estimat Glomerular Filtration Rate 38 ML/MIN Total Creatine Kinase 23 U/L Troponin I LESS THAN 0.02 NG/ML Digoxin Level 0.6 NG/ML Urine Color LIGHT-YELLOW Urine Turbidity CLEAR Urine pH 5.5 Urine Specific [place] 1.012 Urine Protein NEG mg/dL Urine Glucose (UA) 1000 mg/dL Urine Ketones NEG mg/dL Urine Occult Blood NEG Urine Nitrite NEG Urine Bilirubin NEG Urine Urobilinogen LESS THAN 2.0 MG/DL Urine Leukocyte Esterase NEG Urine RBC LESS THAN 1 /hpf Urine Squamous Epithelial Cells 1 /hpf Microscopic Urinalysis Comment CULT NOT INDICATED MDM Medical Decision Making Medical Screen Exam Complete: Yes Emergency Medical Condition: Yes Differential Diagnosis Polypharmacy versus anemia versus UTI versus ICH versus ACS versus metastatic cancer versus other Narrative Course 67-year-old female with PMH of recurrent ovarian cancer status post total hysterectomy, on chemotherapy, managed by Dr. Starks presents to the ED for evaluation of 1 week history of dizziness, palpitations. Vitals reviewed. Respiratory rate 20, O2 sats 99% on room air. On exam the patient is pale and has tenderness to palpation left lower quadrant and right CVA tenderness. Otherwise unremarkable. IV was established. Patient was ministered 1 L normal saline, 4 mg morphine. EKG rate 75, sinus rhythm with occasional PVCs. AK interval 171, QRS 138, QTC 385 ms. Normal axis. No acute ST changes. Reviewed by . CXR: No acute abnormality. Cardiac enzymes: Negative 1. CBC: WBC 11.2. Hemoglobin 12.7. Platelet count 114. CMP: Potassium 3.0. BUN 44, creatinine 1.38. UA: No culture indicated. Digoxin: 0.6 Potassium rreplaced orally. I spoke with Dr. Dexter, on-call for Dr. Starks. She recommends observation for possible cardiogenic syncope. I spoke with Dr. Ahmed who agrees to accept the patient to the medicine service. Please see medicine notes for disposition. Tess Verduzco September 27, 2017 16:44
[2017-09-27] MEDS ORDERED: MORPHINE SULFATE 4 MG/ML INJ IV PUSH ONE ×2 (16:45→23:45)
--- NOTE | 2017-09-27 16:53 | RADRPT ---
EXAM DATE: 09/27/2017 4:49 PM EDT AGE/SEX: 67 years / Female INDICATIONS: Shortness of breath. CLINICAL DATA: This is the patient's initial encounter. Patient reports that signs and symptoms have been present for 1 day and indicates a pain score of 0/10. MEDICAL/SURGICAL HISTORY: Congestive heart failure. Asthma. Hypertension. AFIB. COPD. Diabet es. Emphysema. Cholecystectomy. COMPARISON: [facility] [place], 09/23/2016. . FINDINGS: There is a right subclavian line in good position. The heart size is normal. Lungs are free of focal consolidation. There is a stable calcified granuloma in the lateral right lower lung. No effusion is seen. Spurs are seen in the thoracic spine. CONCLUSION: No acute abnormality is seen. Electronically signed by: Dmitry Patel MD 09/27/2017 4:51 PM EDT
[2017-09-27 16:57] LABS: ALKALINE PHOSPHATASE 159 U/L (45-117); DIGOXIN 0.6 NG/ML (0.8-2.0); TOTAL BILIRUBIN ADULT 0.5 MG/DL (0.2-1.0); TOTAL PROTEIN 7.5 GM/DL (6.4-8.2); TROPONIN I LESS THAN 0.02 NG/ML (0.02-0.05)
--- NOTE | 2017-09-27 18:01 | RADRPT ---
EXAM DATE: 09/27/2017 5:58 PM EDT AGE/SEX: 67 years / Female INDICATIONS: Dizziness. CLINICAL DATA: This is the patient's initial encounter. Patient reports that signs and symptoms have been present for 1 day and indicates a pain score of 0/10. MEDICAL/SURGICAL HISTORY: Cardiovascular disease. Hypertension. Hepatitis C. Omentum Cancer. No ne. RADIATION DOSE: 34.60 CTDI (mGy) COMPARISON: No prior [facility] exams available for comparison. TECHNIQUE: CT of the head without contrast. Using automated exposure control and adjustment of the mA and/or kV according to patient size, radiation dose was kept as low as reasonably achievable to ob tain optimal diagnostic quality images. FINDINGS: Cerebrum: Moderate diffuse cerebral atrophy. The ventricles are normal for degree of atrophy. No rios dence of midline shift, mass lesion, hemorrhage or acute infarction. No extraaxial fluid collections are seen. Posterior Fossa: The cerebellum and brainstem are intact. The 4th ventricle is midline. The cerebe llopontine angle is unremarkable. Extracranial: The visualized portion of the orbits is intact. Skull: The calvaria is intact. No evidence of skull fracture. CONCLUSION: 1. Senescent changes without acute intracranial abnormality. Electronically signed by: Boris Kim MD 09/27/2017 6:00 PM EDT
[2017-09-27 18:44] LABS: BILIRUBIN, URINE NEG (NEG); BLOOD, URINE NEG (NEG); GLUCOSE,URINE 1000 mg/dL (NEG); KETONE, URINE NEG (NEG); NITRITE,URINE NEG (NEG); PH, URINE 5.5 (5.0-8.5); SQUAMOUS EPITHELIAL CELL URINE 1 /hpf (0-5); URINE COLOR LIGHT-YELLOW (YELLW/STRAW); URINE LEUKOCYTE ESTERASE NEG (NEG)
[2017-09-27] MEDS ORDERED: oxyCODONE/ACETAMINOPHEN 10 MG/325 MG TAB PO ONE (18:45)
[2017-09-27] MEDS ORDERED: POTASSIUM CHLORIDE 20 MEQ CONTROLLED RELEASE TAB PO ONE (18:45)
[2017-09-27 18:52] VITALS: BP 123/71; PULSE 74; RESP 19; O2SAT 99
[2017-09-27] MEDS ORDERED: BISACODYL 10 MG SUPP RECTAL PRN (19:30)
[2017-09-27] MEDS ORDERED: ONDANSETRON ODT 4 MG TAB PO PRN (19:30)
[2017-09-27] MEDS ORDERED: ACETAMINOPHEN 325 MG TAB PO PRN (19:30)
[2017-09-27] MEDS ORDERED: NALOXONE HCL 0.4 MG/ML AMP IV PUSH PRN (19:30)
[2017-09-27] MEDS ORDERED: SENNOSIDES 8.6 MG TAB PO PRN (19:30)
[2017-09-27] MEDS ORDERED: MAGNESIUM HYDROXIDE SUSP 30 ML CUP PO PRN (19:30)
[2017-09-27] MEDS ORDERED: SODIUM CHLORIDE 0.9% FLUSH 10 ML FLUSH IV FLUSH PRN (19:30)
[2017-09-27] MEDS ORDERED: LACTULOSE SYRUP 20 GM/30 ML CUP PO PRN (19:30)
--- NOTE | 2017-09-27 19:40 | PD ---
Physical Exam Date Seen by Provider: September 27, 2017 Time Seen by Provider: 18:00 Narrative I, Dr. Amos, have reviewed the advance practice practitioner's documentation and am in agreement, met with the patient face to face, made the diagnosis, and the medical decision making was done by me. *My assessment and Findings: Patient seen and evaluated with PA, please see PA notes for further details. She has history of [employer] cancer currently on chemotherapy with Dr. Starks, here because of dizziness, general weakness, no focal neurological deficits. Patient's blood pressure was initially elevated but came down on its own and vital signs are stable in the ER. EKG did not show any signs of acute dysrhythmias. Lab work shows elevated BUN and creatinine concerning for underlying dehydration. At this point considering she is fairly symptomatic, plan would be to admit the patient for further treatment. Laboratory Tests Test 09/27/17 16:08 09/27/17 18:04 White Blood Count 11.2 TH/MM3 (4.0-11.0) Red Blood Count 3.91 MIL/MM3 (4.00-5.30) Platelet Count 114 TH/MM3 (150-450) Prothrombin Time 9.7 SEC (9.8-11.6) Blood Urea Nitrogen 44 MG/DL (7-18) Creatinine 1.38 MG/DL (0.50-1.00) Random Glucose 151 MG/DL (74-106) Albumin 3.3 GM/DL (3.4-5.0) Alkaline Phosphatase 159 U/L (45-117) Potassium Level 3.0 MEQ/L (3.5-5.1) Chloride Level 109 MEQ/L (98-107) Estimat Glomerular Filtration Rate 38 ML/MIN (>89) Total Creatine Kinase 23 U/L (26-192) Troponin I LESS THAN 0.02 NG/ML Digoxin Level 0.6 NG/ML (0.8-2.0) Urine Glucose (UA) 1000 mg/dL (NEG) Data Data Last Documented VS Vital Signs Date Time Temp Pulse Resp B/P (MAP) Pulse Ox O2 Delivery O2 Flow Rate FiO2 09/27/17 18:52 74 19 123/71 (88) 99 Room Air 09/27/17 15:38 99.5 Orders Orders Digoxin (09/27/17 15:52) Electrocardiogram (09/27/17 15:52) Complete Blood Count With Diff (09/27/17 15:52) Comprehensive Metabolic Panel (09/27/17 15:52) Magnesium (Mg) (09/27/17 15:52) Ckmb (Isoenzyme) Profile (09/27/17 15:52) Troponin I (09/27/17 15:52) Act Partial Throm Time (Ptt) (09/27/17 15:52) Prothrombin Time / Inr (Pt) (09/27/17 15:52) Urinalysis - C+S If Indicated (09/27/17 15:52) Chest, Single Ap (09/27/17 15:52) Ct Brain W/O Iv Contrast(Rout) (09/27/17 15:52) Ecg Monitoring (09/27/17 15:52) Iv Access Insert/Monitor (09/27/17 15:52) Oximetry (09/27/17 15:52) Sodium Chloride 0.9% Flush (Ns Flush) (09/27/17 16:00) Sodium Chlor 0.9% 1000 Ml Inj (Ns 1000 M (09/27/17 15:52) Morphine Inj (Morphine Inj) (09/27/17 16:45) Potassium Chloride (Kcl) (09/27/17 18:45) Oxycodone-Acetamin 10-325 Mg (Percocet 1 (09/27/17 18:45) Admit Order (Ed Use Only) (09/27/17 19:18) Labs Laboratory Tests Test 09/27/17 16:08 09/27/17 18:04 White Blood Count 11.2 TH/MM3 Red Blood Count 3.91 MIL/MM3 Hemoglobin 12.7 GM/DL Hematocrit 37.6 % Mean Corpuscular Volume 96.1 FL Mean Corpuscular Hemoglobin 32.5 PG Mean Corpuscular Hemoglobin Concent 33.9 % Red Cell Distribution Width 16.8 % Platelet Count 114 TH/MM3 Mean Platelet Volume 8.6 FL Neutrophils (%) (Auto) 64.5 % Lymphocytes (%) (Auto) 31.6 % Monocytes (%) (Auto) 2.1 % Eosinophils (%) (Auto) 1.2 % Basophils (%) (Auto) 0.6 % Neutrophils # (Auto) 7.2 TH/MM3 Lymphocytes # (Auto) 3.5 TH/MM3 Monocytes # (Auto) 0.2 TH/MM3 Eosinophils # (Auto) 0.1 TH/MM3 Basophils # (Auto) 0.1 TH/MM3 CBC Comment DIFF FINAL Differential Comment Prothrombin Time 9.7 SEC Prothromb Time International Ratio 1.0 RATIO Activated Partial Thromboplast Time 26.1 SEC Blood Urea Nitrogen 44 MG/DL Creatinine 1.38 MG/DL Random Glucose 151 MG/DL Total Protein 7.5 GM/DL Albumin 3.3 GM/DL Calcium Level 8.9 MG/DL Magnesium Level 1.9 MG/DL Alkaline Phosphatase 159 U/L Aspartate Amino Transf (AST/SGOT) 18 U/L Alanine Aminotransferase (ALT/SGPT) 31 U/L Total Bilirubin 0.5 MG/DL Sodium Level 142 MEQ/L Potassium Level 3.0 MEQ/L Chloride Level 109 MEQ/L Carbon Dioxide Level 21.1 MEQ/L Anion Gap 12 MEQ/L Estimat Glomerular Filtration Rate 38 ML/MIN Total Creatine Kinase 23 U/L Troponin I LESS THAN 0.02 NG/ML Digoxin Level 0.6 NG/ML Urine Color LIGHT-YELLOW Urine Turbidity CLEAR Urine pH 5.5 Urine Specific [place] 1.012 Urine Protein NEG mg/dL Urine Glucose (UA) 1000 mg/dL Urine Ketones NEG mg/dL Urine Occult Blood NEG Urine Nitrite NEG Urine Bilirubin NEG Urine Urobilinogen LESS THAN 2.0 MG/DL Urine Leukocyte Esterase NEG Urine RBC LESS THAN 1 /hpf Urine Squamous Epithelial Cells 1 /hpf Microscopic Urinalysis Comment CULT NOT INDICATED [facility] Medical Record Reviewed: Yes Supervised Visit with STEFANIA: Yes Diagnosis Primary Impression: Dehydration Admitting Information Admitting Physician Requests: Admit Yesenia Amos MD September 27, 2017 19:40
[2017-09-27 19:51] VITALS: BP 104/55; PULSE 74; RESP 16; O2SAT 96
[2017-09-27] MEDS: SODIUM CHLOR 0.9% 1000 ML INJ 1,000 ML IV SCH (20:08)
[2017-09-27] MEDS: ENOXAPARIN SODIUM 40 MG/0.4 ML SYRINGE SQ SCH (20:08)
[2017-09-27] MEDS: SODIUM CHLORIDE 0.9% FLUSH 10 ML FLUSH IV FLUSH SCH (20:09)
--- NOTE | 2017-09-27 20:28 | HHI.HP ---
[facility] Darius Reynoso MD Admission Diagnosis Dizziness Diagnoses: Chief Complaint: Dizziness. Travel History International Travel<30 Days: No Contact w/Intl Traveler <30 Da: No Traveled to Known Affected Are: No History of Present Illness Ms. Nichole is a 67-year-old female with a history of atrial fibrillation, CHF, diabetes mellitus, recurrent ovarian cancer status post hysterectomy currently on chemotherapy by Dr. Starks who presents to the emergency department on 2017 due to 2 week history of dizziness. Patient also has been experiencing palpitation. Over the last 2 weeks, patient has experienced significant dizziness and weakness. She denies any orthopnea, leg swelling. She gets extremely dyspneic even on walking short distance within her house. Denies any changes in bowel or bladder habits. She follows up with a wash oil pump operator, shipper receiver as well as [facility] with regards to Afib. Review of Systems Except as stated in HPI: all other systems reviewed are Neg Past Family Social History Past Medical History Rheumatoid arthritis, ovarian cancer, asthma, atrial fibrillation, anxiety depression, hyperlipidemia, hematologic colitis, hepatitis C Past Surgical History Hysterectomy, watchman implanted 2016, hernia repair Reported Medications Topotecan Inj 4 Mg Inj Ranitidine (Ranitidine HCl) 150 Mg Tab 150 Mg PO DAILY Protonix (Pantoprazole Sodium) 40 Mg Tab 40 Mg PO DAILY Caltrate 600+D Plus Minerals (Calcium Carbonate-Vitamin D W/Minerals) 600-800 Mg -Unit Tab 1 Tab PO BID Topamax (Topiramate) 100 Mg Tab 100 Mg PO BID Glipizide XL (Glipizide) 2.5 Mg Shanika 2.5 Mg PO DAILY Take with breakfast or first main meal of the day Jardiance (Empagliflozin) 10 Mg Tab 10 Mg PO DAILY B12 (Cyanocobalamin) 1,000 Mcg Tab Integra Plus (Multi-Vit/Iron-Vit C-K06-Hwoga Acid) 191-210-0.01-1 mg Cap Aspirin 325 Mg Tab 325 Mg PO DAILY Spiriva Handihaler (Tiotropium Inh) 18 Mcg Cap 18 Mcg INH DAILY 1 capsule = 18 mcg Spironolactone 25 Mg Tab 25 Mg PO BIDPC Potassium Chloride ER (Potassium Chloride) 20 Meq Tab 20 Meq PO DAILY Zofran (Ondansetron HCl) 4 Mg Tab 8 Mg PO Q6HR PRN Digoxin 0.125 Mg Tab 0.125 Mg PO DAILY Bupropion HCl 100 Mg Tab 100 Mg PO BID Bumetanide 1 Mg Tab 1 Mg PO BID Atenolol 50 Mg Tab 50 Mg PO DAILY Ventolin Hfa 18 GM Inh (Albuterol Sulfate) 90 Mcg/Act Aer 2 Puff INH Q4-6H PRN Advair Diskus Inh (Fluticasone-Salmeterol Inh) 500-50 Mcg/Blist Aer 1 Puff INH BID Rinse mouth after use. Allergies: Coded Allergies: amoxicillin (Verified Allergy, Severe, Ulcers, 09/27/17) azithromycin (Verified Allergy, Severe, Hives, 09/27/17) cat dander (Verified Allergy, Severe, cough, itching, 09/27/17) clavulanic acid (Verified Allergy, Severe, Ulcers, 09/27/17) mesalamine (Verified Allergy, Severe, Hives, 09/27/17) paclitaxel (Verified Allergy, Severe, Headache, 09/27/17) N/V trazodone (Verified Allergy, Intermediate, Generalized Rash, 09/27/17) anxiety Family History Father had MO and at age 67, mother with diabetes mellitus. Social History Alcohol Use: No Tobacco Use: No Substance Use: No Physical Exam Vital Signs Vital Signs Date Time Temp Pulse Resp B/P (MAP) Pulse Ox O2 Delivery O2 Flow Rate FiO2 09/27/17 19:51 74 16 104/55 (71) 96 Room Air 09/27/17 18:52 74 19 123/71 (88) 99 Room Air 09/27/17 18:41 17 09/27/17 15:43 80 99 Room Air 09/27/17 15:38 99.5 85 17 191/87 (121) 98 Physical Exam GENERAL: This is a well-nourished, well-developed patient, in no apparent distress. SKIN: No rashes, ecchymoses or lesions. Warm and dry. HEAD: Atraumatic. Normocephalic. No temporal or scalp tenderness. EYES: Pupils equal round and reactive. No injection or drainage. ENT: Nose without bleeding, purulent drainage or septal hematoma. Airway patent. NECK: Trachea midline. No lymphadenopathy. Supple, nontender, no meningeal signs. CARDIOVASCULAR: Regular rate and rhythm without murmurs, gallops, or rubs. No JVD. RESPIRATORY: Clear to auscultation. Breath sounds equal bilaterally. No wheezes , rales, or rhonchi. GASTROINTESTINAL: Abdomen soft, non-tender, nondistended. No guarding. MUSCULOSKELETAL: Extremities without clubbing, cyanosis, or edema. NEUROLOGICAL: Awake and alert. Cranial nerves II through XII intact. No focal neurological deficits. Normal speech. Laboratory Laboratory Tests Test 09/27/17 16:08 09/27/17 18:04 White Blood Count 11.2 Red Blood Count 3.91 Hemoglobin 12.7 Hematocrit 37.6 Mean Corpuscular Volume 96.1 Mean Corpuscular Hemoglobin 32.5 Mean Corpuscular Hemoglobin Concent 33.9 Red Cell Distribution Width 16.8 Platelet Count 114 Mean Platelet Volume 8.6 Neutrophils (%) (Auto) 64.5 Lymphocytes (%) (Auto) 31.6 Monocytes (%) (Auto) 2.1 Eosinophils (%) (Auto) 1.2 Basophils (%) (Auto) 0.6 Neutrophils # (Auto) 7.2 Lymphocytes # (Auto) 3.5 Monocytes # (Auto) 0.2 Eosinophils # (Auto) 0.1 Basophils # (Auto) 0.1 CBC Comment DIFF FINAL Differential Comment Prothrombin Time 9.7 Prothromb Time International Ratio 1.0 Activated Partial Thromboplast Time 26.1 Blood Urea Nitrogen 44 Creatinine 1.38 Random Glucose 151 Total Protein 7.5 Albumin 3.3 Calcium Level 8.9 Magnesium Level 1.9 Alkaline Phosphatase 159 Aspartate Amino Transf (AST/SGOT) 18 Alanine Aminotransferase (ALT/SGPT) 31 Total Bilirubin 0.5 Sodium Level 142 Potassium Level 3.0 Chloride Level 109 Carbon Dioxide Level 21.1 Anion Gap 12 Estimat Glomerular Filtration Rate 38 Total Creatine Kinase 23 Troponin I LESS THAN 0.02 Digoxin Level 0.6 Urine Color LIGHT-YELLOW Urine Turbidity CLEAR Urine pH 5.5 Urine Specific [place] 1.012 Urine Protein NEG Urine Glucose (UA) 1000 Urine Ketones NEG Urine Occult Blood NEG Urine Nitrite NEG Urine Bilirubin NEG Urine Urobilinogen LESS THAN 2.0 Urine Leukocyte Esterase NEG Urine RBC LESS THAN 1 Urine Squamous Epithelial Cells 1 Microscopic Urinalysis Comment CULT NOT INDICATED Result Diagram: 09/27/17 1608 09/27/17 1608 Imaging Last Impressions Head CT 09/27/17 1552 Signed Impressions: CONCLUSION: 1. Senescent changes without acute intracranial abnormality. Chest X-Ray 09/27/17 1552 Signed Impressions: CONCLUSION: No acute abnormality is seen. Caprini VTE Risk Assessment Caprini VTE Risk Assessment: Mod/High Risk (score >= 2) Caprini Risk Assessment Model Point Value = 1 Point Value = 2 Point Value = 3 Point Value = 5 Age 41-60 Minor surgery BMI > 25 kg/m2 Swollen legs Varicose veins or History of unexplained or recurrent spontaneous Oral contraceptives or hormone replacement Sepsis (< 1 month) Serious lung disease, including pneumonia (< 1 month) Abnormal pulmonary function Acute myocardial infarction Congestive heart failure (< 1 month) History of inflammatory bowel disease Medical patient at bed rest Age 61-74 Arthroscopic surgery Major open surgery (> 45 min) Laparoscopic surgery (> 45 min) Malignancy Confined to bed (> 72 hours) Immobilizing plaster cast Central venous access Age >= 75 History of VTE Family history of VTE Factor V Leiden Prothrombin [id number] Lupus anticoagulant Anticardiolipin antibodies Elevated serum homocysteine Heparin-induced thrombocytopenia Other congenital or acquired thrombophilia Stroke (< 1 month) Elective arthroplasty Hip, pelvis, or leg fracture Acute spinal cord injury (< 1 month) Prophylaxis Regimen Total Risk Factor Score Risk Level Prophylaxis Regimen 0-1 Low Early ambulation 2 Moderate Order ONE of the following: *Sequential Compression Device (SCD) *Heparin 5000 units SQ BID 3-4 Higher Order ONE of the following medications: *Heparin 5000 units SQ TID *Enoxaparin/Lovenox 40 mg SQ daily (WT < 150 kg, CrCl > 30 mL/min) *Enoxaparin/Lovenox 30 mg SQ daily (WT < 150 kg, CrCl > 10-29 mL/min) *Enoxaparin/Lovenox 30 mg SQ BID (WT < 150 kg, CrCl > 30 mL/min) AND/OR *Sequential Compression Device (SCD) 5 or more Highest Order ONE of the following medications: *Heparin 5000 units SQ TID (Preferred with Epidurals) *Enoxaparin/Lovenox 40 mg SQ daily (WT < 150 kg, CrCl > 30 mL/min) *Enoxaparin/Lovenox 30 mg SQ daily (WT < 150 kg, CrCl > 10-29 mL/min) *Enoxaparin/Lovenox 30 mg SQ BID (WT < 150 kg, CrCl > 30 mL/min) AND *Sequential Compression Device (SCD) Assessment and Plan Problem List: (1) Dizziness ICD Code: R42 - Dizziness and giddiness (2) Afib ICD Code: I48.91 - Unspecified atrial fibrillation Status: Acute (3) Hepatitis C ICD Code: B19.20 - Unspecified viral hepatitis C without hepatic coma Status: Chronic Assessment and Plan Ms. Nichole is a pleasant 67-year-old female with a history of CHF, atrial fibrillation, diabetes mellitus, ovarian cancer who presents to the emergency department due to 2 week long weakness, shortness of breath, dizziness. She denies any orthopnea, lower extremity edema. Dyspnea on minor exertion Dizziness -Symptoms are non-specific. Will obtain orthostatic blood pressure -We will obtain an echocardiogram. Last echocardiogram was done in 2015 which showed normal ejection fraction. -We will continue patient on gentle hydration normal saline at 100 cc/h. -Currently patient is on room air. -PT eval. -Check digoxin level Congestive heart failure - possible diastolic Atrial fibrillation -Patient was on warfarin before. However currently she is on aspirin 325 mg daily. [facility] -Patient appears to be euvolemic currently. - Will obtain Limited 2D echo. If EF is reduced < 35%, consider re-starting Bumex and Spironolactone. Diabetes mellitus - Sliding scale insulin. Consider Long acting insulin if needed. Full code. Lovenox. Cheri Brown DO September 27, 2017 20:28
[2017-09-27 21:00] VITALS: BP 116/68; PULSE 69; RESP 20; TEMP 98.4; O2SAT 97
[2017-09-28] VITALS (13 sets, daily range): BP systolic 114–156; BP diastolic 63–85; PULSE 62–93; RESP 18–20; TEMP 97.4–98.8; O2SAT 97–100
[2017-09-28] MEDS ORDERED: DEXTROSE 50% IN WATER 50 ML VIAL(D50) IV PUSH PRN (00:45)
[2017-09-28] MEDS ORDERED: GLUCAGON 1 MG/ML VIAL OTHER PRN (00:45)
[2017-09-28] MEDS: SODIUM CHLOR 0.9% 1000 ML INJ 1,000 ML IV SCH ×2 (06:21→15:29)
[2017-09-28 07:29] LABS: AUTOMATED NEUTROPHIL # 5.4 TH/MM3 (1.8-7.7); BASOPHIL % 0.1 % (0.0-2.0); EOSINOPHIL % 0.1 % (0.0-4.0); HEMATOCRIT 30.1 % (35.0-46.0); HEMOGLOBIN 10.3 GM/DL (11.6-15.3); LYMPH % 21.7 % (9.0-44.0); LYMPHOCYTE # 1.6 TH/MM3 (1.0-4.8); MEAN CELL VOLUME 95.3 FL (80.0-100.0); MEAN CORPUSCULAR HEMOGLOBIN 32.7 PG (27.0-34.0); MEAN CORPUSCULAR HGB CONC 34.3 % (32.0-36.0); MEAN PLATELET VOLUME 8.2 FL (7.0-11.0); MONO % 3.4 % (0.0-8.0); MONOCYTE # 0.2 TH/MM3 (0-0.9); NEUT % 74.7 % (16.0-70.0); PLATELET COUNT 69 TH/MM3 (150-450); RED BLOOD COUNT 3.15 MIL/MM3 (4.00-5.30); RED CELL DISTRIBUTION WIDTH 16.3 % (11.6-17.2); WHITE BLOOD COUNT 7.2 TH/MM3 (4.0-11.0)
[2017-09-28 07:45] LABS: BICARBONATE 21.1 MEQ/L (21.0-32.0); CALCIUM 8.5 MG/DL (8.5-10.1); CREATININE 1.09 MG/DL (0.50-1.00)
[2017-09-28 07:59] LABS: DIGOXIN 0.7 NG/ML (0.8-2.0)
[2017-09-28] MEDS: INSULIN ASPART SUPPLEMENTAL SCALE SQ SCH ×4 (08:00→21:00)
[2017-09-28] MEDS ORDERED: BUMETANIDE 1 MG TAB PO SCH (09:00)
[2017-09-28] MEDS ORDERED: POTASSIUM CHLORIDE 20 MEQ CONTROLLED RELEASE TAB PO SCH (09:00)
[2017-09-28] MEDS ORDERED: SPIRONOLACTONE 25 MG TAB PO SCH (09:00)
[2017-09-28] MEDS: FAMOTIDINE 20 MG TAB PO SCH (09:51)
[2017-09-28] MEDS: SODIUM CHLORIDE 0.9% FLUSH 10 ML FLUSH IV FLUSH SCH ×2 (09:52→21:15)
[2017-09-28] MEDS: ASPIRIN 325 MG TAB PO SCH (09:52)
[2017-09-28] MEDS ORDERED: ONDANSETRON ODT 4 MG TAB PO ONE (11:15)
--- NOTE | 2017-09-28 13:52 | HHI.PR ---
Subjective Remarks awake and alert complains of loeft lower abdominal pain chronic- states on [place] - not wroking anymore good BM appears Manic states had chemo therapy last week- denies any n/v or diarrhea here for dizziness denies any diarrhea, nausea or vomiting no fever or chills stattes history of a fib- converted to SR and has been off coumadin- just on aspirin known diabetic- states good readings at home had a recent Objective Vitals Vital Signs Date Time Temp Pulse Resp B/P (MAP) Pulse Ox O2 Delivery O2 Flow Rate FiO2 09/28/17 12:08 98.8 93 20 156/76 (102) 100 09/28/17 08:30 98.1 73 18 128/77 (94) 100 09/28/17 08:00 70 09/28/17 04:56 97.4 66 20 114/69 (84) 98 09/28/17 04:00 63 09/28/17 00:00 97.7 65 20 129/63 (85) 99 09/28/17 00:00 66 09/27/17 21:18 09/27/17 21:00 98.4 69 20 116/68 (84) 97 09/27/17 19:51 74 16 104/55 (71) 96 Room Air 09/27/17 18:52 74 19 123/71 (88) 99 Room Air 09/27/17 18:41 17 09/27/17 15:43 80 99 Room Air 09/27/17 15:38 99.5 85 17 191/87 (121) 98 I/O 09/27/17 09/27/17 09/27/17 09/28/17 09/28/17 09/28/17 06:59 14:59 22:59 06:59 14:59 22:59 Intake Total 1000 ml 720 ml Output Total 400 ml Balance 1000 ml 320 ml Intake Oral 720 ml IV Total 1000 ml Output Urine Total 400 ml # Voids 1 Result Diagram: 09/28/17 0655 09/28/17 06 Imaging Last Impressions Head CT 09/27/17 155 Signed Impressions: CONCLUSION: 1. Senescent changes without acute intracranial abnormality. Chest X-Ray 09/27/171551 Signed Impressions: CONCLUSION: No acute abnormality is seen. Objective Remarks awake and alert, no acute distress anicteric no nuchal rigidity lungs- no rales regular rhythm abdomen soft, good bowel sounds no guarding or rigidity extremities no edema neuro exam- non focal gait- slow but steady A/P Problem List: (1) Dizziness ICD Code: R42 - Dizziness and giddiness (2) Afib ICD Code: I48.91 - Unspecified atrial fibrillation Status: Acute (3) Hepatitis C ICD Code: B19.20 - Unspecified viral hepatitis C without hepatic coma Status: Chronic Assessment and Plan Ms. Nichole is a pleasant 67-year-old female with a history of CHF, atrial fibrillation, diabetes mellitus, ovarian cancer who presents to the emergency department due to 2 week long weakness, shortness of breath, dizziness. She denies any orthopnea, lower extremity edema. Dizziness Acute kidney injury -likely from diuretics- -Symptoms are non-specific. orthostatic blood pressure- negative, neuro exam - unremarkabel telemetry in sinus rhythm neuro exam unremarkable -We will obtain an echocardiogram. Last echocardiogram was done in 2016 which showed normal ejection fraction. -We will continue patient on gentle hydration normal saline at 100 cc/h. reviewed records- patient was on diuretics - BUN creatinine -suggestive of EDINSON- -Currently patient is on room air. -PT eval. -Check digoxin level Congestive heart failure - clinically not in failure Atrial fibrillation- history- in SR -Patient was on warfarin before. However currently she is on aspirin 325 mg daily. [facility] -Patient appears to be euvolemic currently. - Will obtain Limited 2D echo. If EF is reduced < 35%, consider re-starting Bumex and Spironolactone. - at a lower dose COPD- continue inhalers History of ovarian cancer with chronic pain - start Nroco 7.5 q 6 prn Diabetes mellitus - Sliding scale insulin. restart oral hypoglycemic Jardiance0 - at home on multiple meds Full code. Lovenox. UP and ambulate David Lim MD September 28, 2017 13:52
[2017-09-28] MEDS ORDERED: SENNOSIDES 8.6 MG TAB PO PRN (14:00)
[2017-09-28] MEDS ORDERED: NON-FORMULARY DRUG (Ondansetron (Zofran) 8 MG) PO PRN (14:00)
[2017-09-28] MEDS ORDERED: NON-FORMULARY DRUG (Fluticasone-Salmeterol Inh (Advair Diskus Inh) 1 PUFF) INH SCH (14:00)
[2017-09-28] MEDS ORDERED: ACETAMINOPHEN/HYDROcodone 325 MG/7.5 MG TAB PO PRN (14:15)
[2017-09-28] MEDS ORDERED: ALBUTEROL SULFATE 90 MCG/ACT HFA 18 GM INHALER INH PRN (15:00)
[2017-09-28] MEDS ORDERED: POTASSIUM CHLORIDE INJ 10 MEQ in SODIUM CHLOR 0.9% 1000 ML INJ 1,000 ML IV SCH (16:00)
[2017-09-28] MEDS ORDERED: ONDANSETRON ODT 4 MG TAB PO PRN ×2 (17:00)
[2017-09-28] MEDS: TIOTROPIUM BROMIDE 18 MCG INH INH SCH (18:52)
[2017-09-28] MEDS ORDERED: POTASSIUM CHLORIDE 20 MEQ CONTROLLED RELEASE TAB PO ONE (19:00)
[2017-09-28] MEDS: ACETAMINOPHEN/HYDROcodone 325 MG/10 MG TAB PO PRN (21:12)
[2017-09-28] MEDS: ENOXAPARIN SODIUM 40 MG/0.4 ML SYRINGE SQ SCH (21:14)
[2017-09-28] MEDS: CALCIUM/VITAMIN D 250 MG/125 U TAB PO SCH (21:14)
[2017-09-28] MEDS: BUDESONIDE-FORMOTEROL 160/4.5 MCG INHALER INH SCH (21:14)
[2017-09-29] VITALS: PULSE 61
[2017-09-29] MEDS ORDERED: LORazepam 1 MG TAB PO ONE (01:00)
[2017-09-29 04:00] VITALS: BP 120/70; PULSE 56; PULSE 64; RESP 22; TEMP 97.5; O2SAT 98
[2017-09-29 05:37] LABS: BICARBONATE 22.5 MEQ/L (21.0-32.0); BLOOD UREA NITROGEN 31 MG/DL (7-18); CALCIUM 8.2 MG/DL (8.5-10.1); CHLORIDE 117 MEQ/L (98-107); CREATININE 0.98 MG/DL (0.50-1.00); GLOMERULAR FILTRATION RATE 57 ML/MIN (>89); GLUCOSE,RANDOM 106 MG/DL (74-106); SODIUM (NA) 147 MEQ/L (136-145)
[2017-09-29] MEDS ORDERED: 1/2 NS + KCL 20 MEQ INJ 1,000 ML IV SCH (07:00)
[2017-09-29 08:00] VITALS: PULSE 54
[2017-09-29] MEDS: INSULIN ASPART SUPPLEMENTAL SCALE SQ SCH ×3 (08:00→17:00)
--- NOTE | 2017-09-29 08:24 | EKG ---
Date Performed: 09/27/2017 Time Performed: 16:19:06 PTAGE: 67 years EKG: Sinus rhythm WITH OCCASIONAL SUPRAVENTRICULAR PREMATURE COMPLEXES MARKED LEFT AXIS DEVIATION INTRAVENTRICULAR CON DUCTION DELAY ABNORMAL ECG PREVIOUS TRACING : 09/23/2016 19.34 DOCTOR: Karon Rowell Interpretating Date/Time 09/29/2017 08:16:59
[2017-09-29 08:51] VITALS: BP 130/64; PULSE 62; RESP 18; TEMP 97.3; O2SAT 100
[2017-09-29] MEDS ORDERED: EMPAGLIFLOZIN 10 MG PO SCH (09:00)
[2017-09-29] MEDS ORDERED: DIGOXIN 0.125 MG TAB PO SCH (09:00)
[2017-09-29] MEDS ORDERED: ATENOLOL 50 MG TAB PO SCH (09:00)
[2017-09-29] MEDS: CALCIUM/VITAMIN D 250 MG/125 U TAB PO SCH (09:04)
[2017-09-29] MEDS: FAMOTIDINE 20 MG TAB PO SCH (09:05)
[2017-09-29] MEDS: ACETAMINOPHEN/HYDROcodone 325 MG/10 MG TAB PO PRN ×2 (09:05→16:15)
[2017-09-29] MEDS: ASPIRIN 325 MG TAB PO SCH (09:05)
[2017-09-29] MEDS: SODIUM CHLORIDE 0.9% FLUSH 10 ML FLUSH IV FLUSH SCH (09:06)
[2017-09-29] MEDS: TIOTROPIUM BROMIDE 18 MCG INH INH SCH (09:07)
[2017-09-29] MEDS: BUDESONIDE-FORMOTEROL 160/4.5 MCG INHALER INH SCH (09:10)
--- NOTE | 2017-09-29 11:06 | HHI.PR ---
Subjective Remarks awake and alert no acute distress no voiding difficulty left lower abdominal discomfort- - per aptient chronic on [place] no urinary symptoms, + flatus now states she was set to receive her chemo today as OP with Dr. Starks- requesting if she can have it today Objective Vitals Vital Signs Date Time Temp Pulse Resp B/P (MAP) Pulse Ox O2 Delivery O2 Flow Rate FiO2 09/29/17 08:51 100 Room Air 09/29/17 08:51 97.3 62 18 130/64 (86) 100 09/29/17 04:00 56 09/29/17 04:00 97.5 64 22 120/70 (87) 98 09/29/17 00:00 61 09/28/17 23:57 98.0 68 20 124/66 (85) 99 09/28/17 21:26 98.1 64 156/85 (108) 97 09/28/17 20:05 100 09/28/17 20:00 62 09/28/17 16:34 97.6 69 18 139/75 (96) 100 09/28/17 15:00 69 09/28/17 12:08 98.8 93 20 156/76 (102) 100 09/28/17 12:00 70 I/O 09/28/17 09/28/17 09/28/17 09/29/17 09/29/17 09/29/17 07:00 15:00 23:00 07:00 15:00 23:00 Intake Total 720 ml 1200 ml 480 ml Output Total 400 ml 1400 ml 1000 ml Balance 320 ml -200 ml -520 ml Intake Oral 720 ml 480 ml IV Total 1200 ml Output Urine Total 400 ml 1400 ml 800 ml Stool Total 200 ml # Voids 1 # Bowel Movements 1 Result Diagram: 09/28/17 0655 09/29/17 0500 Imaging Last Impressions Head CT 09/27/17 1552 Signed Impressions: CONCLUSION: 1. Senescent changes without acute intracranial abnormality. Chest X-Ray 09/27/17 155 Signed Impressions: CONCLUSION: No acute abnormality is seen. Objective Remarks awake and alert, no acute distress, appears a little manic anicteric no nuchal rigidity lungs- no rales regular rhythm abdomen soft, good bowel sounds no guarding or rigidity, no CVA tenderness extremities no edema neuro exam- unremarkable A/P Problem List: (1) Dizziness ICD Code: R42 - Dizziness and giddiness (2) Afib ICD Code: I48.91 - Unspecified atrial fibrillation Status: Acute (3) Hepatitis C ICD Code: B19.20 - Unspecified viral hepatitis C without hepatic coma Status: Chronic Assessment and Plan Ms. Nichole is a pleasant 67-year-old female with a history of CHF, atrial fibrillation, diabetes mellitus, ovarian cancer who presents to the emergency department due to 2 week long weakness, shortness of breath, dizziness. She denies any orthopnea, lower extremity edema. Dizziness- improved. seen by PT- no PT needed Acute kidney injury -likely from diuretics-DC orthostatic blood pressure- negative, neuro exam- unremarkabel telemetry in sinus rhythm neuro exam unremarkable awaiting echo - Last echocardiogram was done in 2015 which showed normal ejection fraction. -Currently patient is on room air. -PT eval. Congestive heart failure - clinically not in failure Atrial fibrillation- history- in SR -Patient was on warfarin before. However currently she is on aspirin 325 mg daily. Follows up with [facility]. -Patient appears to be euvolemic currently. - Will obtain Limited 2D echo. - recheck Echo COPD- continue inhalers History of ovarian cancer with chronic pain - start Nroco 7.5 q 6 prn Diabetes mellitus - Sliding scale insulin. restart oral hypoglycemic Jardiance- at home on multiple meds d/w her blood sugar readings - she had d/w touch up worker as OP - that they keep her on one oral hypoglycemic- Jardiance and DC glipizide ADA diet History of ovarian cancer- now states chemo due today requesting if she can have it done here - will touch base with gyne- oncolo Full code. Lovenox. UP and ambulate David Lim MD September 29, 2017 11:06
[2017-09-29 11:25] VITALS: O2SAT 100
[2017-09-29 11:52] VITALS: BP 122/71; PULSE 62; RESP 18; TEMP 97.8; O2SAT 98
[2017-09-29] MEDS ORDERED: HYDR-3583 PO (13:25)
--- NOTE | 2017-09-29 14:39 | ECHRPT ---
Indication: EF assessment of CHF CONCLUSIONS Normal left ventricular size. Mild concentric left ventricular hypertrophy. [id number] mitral valve regurgitation. The left ventricular systolic function is normal with an e stimated ejection fraction in the range of 60-65%. Aortic valve sclerosis is present. There is mild tricuspid valve regurgitation. The estimated pulmonary arterial pressure is 35.2 mmHg. A prominent epicardial fat pad is present. BP: 122 / 71 HR: 62 Rhythm: Sinus MEASUREMENTS (Male / Female) Normal Values Technical Quality:Fair 2D ECHO LV Diastolic Diameter PLAX 4.8 cm 4.2 - 5.9 / 3.9 - 5.3 cm LV Systolic Diameter PLAX 3.4 cm IVS Diastolic Thickness 1.2 cm 0.6 - 1.0 / 0.6 - 0.9 cm LVPW Diastolic Thickness 1.2 cm 0.6 - 1.0 / 0.6 - 0.9 cm LV Relative Wall Thickness 0.5 RV Internal Dim ED PLAX 1.8 cm LVOT Diameter 2.0 cm Aortic Root Diameter 3.1 cm LA Systolic Diameter LX 2.9 cm 3.0 - 4.0 / 2.7 - 3.8 cm M-MODE AV Cusp Separation MM 2.0 cm DOPPLER AV Peak Velocity 136.0 cm/s AV Peak Gradient 7.4 mmHg AV Mean Gradient 4.0 mmHg AV Velocity Time Integral 28.9 cm LVOT Peak Velocity 107.0 cm/s LVOT Peak Gradient 4.6 mmHg LVOT Velocity Time Integral 21.2 cm AV Area Cont Eq vti 2.3 cm AV Area Cont Eq pk 2.5 cm Mitral E Point Velocity 85.4 cm/s Mitral A Point Velocity 77.5 cm/s Mitral E to A Ratio 1.1 LV E' Lateral Velocity 13.1 cm/s Mitral E to LV E' Lateral Ratio 6.5 LV E' Septal Velocity 6.6 cm/s Mitral E to LV E' Septal Ratio 12.9 TR Peak Velocity 251.0 cm/s TR Peak Gradient 25.2 mmHg Right Atrial Pressure 10.0 mmHg Pulmonary Artery Systolic Pressu 35.2 mmHg Right Ventricular Systolic Press 35.2 mmHg PV Peak Velocity 79.0 cm/s PV Peak Gradient 2.5 mmHg FINDINGS LEFT VENTRICLE Normal left ventricular size. Mild concentric left ventricular hypertrophy. The left ventricular systolic function is normal with an estimated ejection fraction in the range of 60-65%. RIGHT VENTRICLE Normal right ventricular size and systolic function. LEFT ATRIUM The left atrial size is normal. RIGHT ATRIUM The right atrial size is normal. ATRIAL SEPTUM No atrial level shunt is demonstrated by color flow Doppler interrogation. AORTA The aortic root and proximal ascending aorta are normal in size on limited imaging. MITRAL VALVE [id number] mitral valve regurgitation. AORTIC VALVE Aortic valve sclerosis is present. TRICUSPID VALVE There is mild tricuspid valve regurgitation. The estimated pulmonary arterial pressure is 35.2 mmHg. PULMONARY VALVE No pulmonary valve regurgitation or stenosis. VESSELS The inferior vena cava is normal in size. PERICARDIUM No pericardial effusion. A prominent epicardial fat pad is present. Diogo Aiken MD, FACC (Electronically Signed) Final Date:29 Sep 2017 14:38
--- NOTE | 2017-09-29 15:05 | HHI.FF ---
Face to Face Verification Diagnosis: (1) CHF (congestive heart failure) (2) DM (diabetes mellitus) (3) Atrial fibrillation, currently in sinus rhythm Home Health Nursing Order: Medical education Signs/symptoms of disease process Diabetic education Nursing assessment with vital signs Manager Endoscopy Order: To Evaluate: Living conditions/environment, Support services I have seen patient Anahi Nichole on 09/29/17. My clinical findings support the need for the requested home health care services because: Ltd mobility - disease progression Need for psychosocial assistance I certify that my clinical findings support that this patient is homebound because: Need for psychosocial assistance David Lim MD September 29, 2017 15:05
[2017-09-29 15:09] LABS: HEMOGLOBIN A1C 6.1 % (4.3-6.0)
[2017-09-29] MEDS ORDERED: LORazepam 0.5 MG TAB PO ONE (18:00)
== END 2017-09-29 19:20 | disposition home or self-care (01) ==
LOC: NEPE 15:28 → NEDA 19:20 → HCIN 21:13
PROVIDERS: ADMIT Internal Medicine; ATTEND Internal Medicine
DX: E86.0 Dehydration (principal); R42 Dizziness and giddiness; Z90.710 Acquired absence of both cervix and uterus; Z85.43 Personal history of malignant neoplasm of ovary; R00.2 Palpitations; R50.9 Fever, unspecified; Z79.01 Long term (current) use of anticoagulants; D64.9 Anemia, unspecified; M06.9 Rheumatoid arthritis, unspecified; I48.91 Unspecified atrial fibrillation; J44.9 Chronic obstructive pulmonary disease, unspecified; E11.9 Type 2 diabetes mellitus without complications; K51.90 Ulcerative colitis, unspecified, without complications; K21.9 Gastro-esophageal reflux disease without esophagitis; B19.20 Unspecified viral hepatitis C without hepatic coma; K44.9 Diaphragmatic hernia without obstruction or gangrene; I11.0 Hypertensive heart disease with heart failure; N19 Unspecified kidney failure; G47.30 Sleep apnea, unspecified; Z79.899 Other long term (current) drug therapy; Z79.84 Long term (current) use of oral hypoglycemic drugs; I49.3 Ventricular premature depolarization; R06.02 Shortness of breath; R94.31 Abnormal electrocardiogram [ECG] [EKG]
CPT/HCPCS: 70450; 71045; 80048; 80053; 80162; 81001; 82550; 82948; 83036; 83735; 84484; 85025; 85610; 85730; 93005; 93308; 96361; 96365; 96366; 96375; 96376; 97162; 99285; G0378; G8987; G8988; J1650; J1815; J2270; J3480; J7030

== ENCOUNTER 2017-12-09 09:54 | Observation (INO) ==
[2017-12-09] MEDS ORDERED: Morphine Inj 4 MG/ML Vial IV.PUSH ONE (10:09)
[2017-12-09 10:36] LABS: Baso % (Auto) 0.1 % (0.0-2.0); Hematocrit 36.2 % (35.0-46.0); Hemoglobin 11.9 gm/dL (11.6-15.3); Lymph # (Auto) 0.5 th/mm3 (1.0-4.8); Lymph % (Auto) 6.3 % (9.0-44.0); Mean Corpuscular HGB Conc 32.7 % (32.0-36.0); Mean Corpuscular Hemoglobin 31.7 pg (27.0-34.0); Mean Platelet Volume 8.4 fL (7.0-11.0); Mono # (Auto) 0.9 th/mm3 (0.0-0.9); Neut # (Auto) 7.1 th/mm3 (1.8-7.7); Neut % (Auto) 82.6 % (16.0-70.0); Platelet Count 202 th/mm3 (150-450); Red Blood Count 3.73 mil/mm3 (4.00-5.30); Red Cell Distribution Width 18.8 % (11.6-17.2); White Blood Count 8.6 th/mm3 (4.0-11.0)
[2017-12-09 10:46] LABS: Activated Partial Thrombo Time 27.5 sec (24.3-30.1); Prothrombin Time 10.3 sec (9.8-11.6)
--- NOTE | 2017-12-09 10:53 | XR ---
EXAM DATE: 12/09/2017 10:49 AM EDT AGE/SEX: 67 years / Female INDICATIONS: Chest pain bilaterally. CLINICAL DATA: This is the patient's initial encounter. Patient reports that signs and symptoms have been present for 1 day and indicates a pain score of 2/10. MEDICAL/SURGICAL HISTORY: . Congestive heart failure. Asthma. Hypertension. AFIB. COPD. Diabete s. Emphysema. Cholecystectomy. Chemo port, right. Watchmen's device. COMPARISON: [facility], CHEST SINGLE AP, 09/27/2017. . FINDINGS: Right-sided central line with the tip overlying the SVC, stable. Lungs are hypoinflated but clear. He art size is normal. Osseous structures are unremarkable. Surgical clips within the right upper quadra nt. CONCLUSION: Negative examination. Electronically signed by: Sabiha Avila MD 12/09/2017 10:52 AM EDT
[2017-12-09 10:55] LABS: Anion Gap 10 meq/L (5-15); Blood Urea Nitrogen 55 mg/dL (7-18); Calcium 9.4 mg/dL (8.5-10.1); Chloride 104 meq/L (98-107); Glomerular Filtration Rate 32 mL/min (>89); Glucose,Random 259 mg/dL (74-106); Potassium 4.8 meq/L (3.5-5.1); Sodium 138 meq/L (136-145)
--- NOTE | 2017-12-09 10:55 | XR ---
EXAM DATE: 12/09/2017 10:51 AM EDT AGE/SEX: 67 years / Female INDICATIONS: Pain in fourth and fifth distal phalanges from disposal in sink. CLINICAL DATA: This is the patient's initial encounter. Patient reports that signs and symptoms have been present for 1 day and indicates a pain score of 5/10. MEDICAL/SURGICAL HISTORY: None. None. COMPARISON: [facility], XR WRIST (MIN 3 VIEWS), RIGHT, 06/01/2017. . FINDINGS: Bony structures are intact and in normal alignment. Osseous density is normal. Soft tissues are unre markable. No radiopaque foreign bodies seen. CONCLUSION: Negative examination Electronically signed by: Sabiha Avila MD 12/09/2017 10:53 AM EDT
[2017-12-09 11:10] LABS: Digoxin 0.8 ng/mL (0.8-2.0)
--- NOTE | 2017-12-09 11:14 | ED ---
HPI General Chief Complaint: Chest Pain Stated Complaint: Chest pain Time Seen by Provider: 12/09/17 09:57 Source: patient Mode of arrival: EMS Limitations: no limitations History of Present Illness HPI narrative: 67-year-old female arrives by EMS. Patient reports chest pain retrosternal and for the right side. Severity 7/10. She reports feeling similar pain yesterday evening. It was very mild. No shortness of breath. Positive pleuritic component. Patient unsure if there is an exertional component. Patient underwent chemotherapy yesterday with a history of breast cancer. She reports chronic back and pelvic pain which is constant severe as well however not acute. The patient takes a baby aspirin daily. She cut her right index finger approximately placing it inside the garbage disposal. Initially there is profuse bleeding however it improved with the application of pressure bandage. MD complaint: chest pain Complete Quality Measures for STEMI Alert Patients STEMI Alert: No Onset (ago): day(s) Duration: constant Onset: during rest Pain location: substernal and right chest Severity: moderate Severity scale (1-10): 7 Pain radiation: none Relieving factors: nothing Exacerbating factors: inspiration Related Data Home Medications Medication Instructions Recorded Confirmed Jardiance 10 mg PO DAILY 12/09/17 12/09/17 aspirin 325 mg PO DAILY 12/09/17 12/09/17 atenolol 50 mg PO DAILY 12/09/17 12/09/17 glipizide 2.5 mg PO DAILY 12/09/17 12/09/17 Allergies Allergy/AdvReac Type Severity Reaction Status Date / Time amoxicillin Allergy Severe Ulcers Verified 12/09/17 10:15 azithromycin Allergy Severe Hives Verified 12/09/17 10:15 cat dander Allergy Severe cough, Verified 12/09/17 10:15 itching clavulanic acid Allergy Severe Ulcers Verified 12/09/17 10:15 mesalamine Allergy Severe Hives Verified 12/09/17 10:15 paclitaxel Allergy Severe Headache Verified 12/09/17 10:15 trazodone Allergy Intermediate Generalized Verified 12/09/17 10:15 Rash Review of Systems Except as stated in HPI: all other systems reviewed are negative Constitutional Reports as per HPI and Denies fever(s) PMFSH Medical History Medical History Atrial fibrillation (Acute) CKD (chronic kidney disease) (Acute) COPD (chronic obstructive pulmonary disease) (Acute) Diabetes (Acute) HTN (hypertension) (Acute) Ovarian cancer (Acute) Social History Social History Second Hand Smoke Exposure: No Smoking Status: Former smoker How Often Do You Have a Drink Containing Alcohol: Never Recent Travel in [facility] within the Last 8 Weeks: No Recent Out of Country Travel within the Last 8 Weeks: No Exam Narrative Exam Narrative: GENERAL: Well-nourished well-developed 67-year-old female no acute distress SKIN: Focused skin assessment warm/dry. HEAD: Atraumatic. Normocephalic. EYES: Pupils equal and round. No scleral icterus. No injection or drainage. ENT: No nasal bleeding or discharge. Mucous membranes pink and moist. NECK: Trachea midline. No JVD. CARDIOVASCULAR: Regular rate and rhythm. No murmur appreciated. RESPIRATORY: No accessory muscle use. Clear to auscultation. Breath sounds equal bilaterally. GASTROINTESTINAL: Abdomen soft, non-tender, nondistended. Hepatic and splenic margins not palpable. MUSCULOSKELETAL: . There is a very mild superficial laceration overlying the dorsal aspect of the distal interphalangeal articulation of the right ring finger. There is a minute laceration just volar to the fingernail along the dorsal pad of the right ring finger. NEUROLOGICAL: Awake and alert. No obvious cranial nerve deficits. Motor grossly within normal limits. Normal speech. PSYCHIATRIC: Appropriate mood and affect; insight and judgment normal. Course Initial Documented Vital Signs Pulse Rate 70 12/09/17 09:58 Respiratory Rate 20 12/09/17 09:58 Blood Pressure 145/77 H 12/09/17 09:58 Pulse Oximetry 98 12/09/17 09:58 Last Documented Vital Signs Temperature 99.0 F 12/09/17 10:04 Pulse Rate 68 12/09/17 10:28 Respiratory Rate 19 12/09/17 10:28 Blood Pressure 145/77 H 12/09/17 09:58 Pulse Oximetry 98 12/09/17 10:28 Clinical Decision Support HEART Score Questions History: Slightly suspicious EKG: Non-specific repolarization disturbance Age: 65 years+ Risk Factors: 1-2 Risk Factors Initial Troponin: Normal Limit Heart Score HEART Score: 4 Medical Decision Making MDM Narrative Medical decision making narrative: The patient arrives with chest pain 11/14. History of malignancy is somewhat concerning as a risk factor for PE. CT pulmonary angiogram reveals no PE. Chest pain center protocol considered reasonable for this patient. Past medical history includes A. fib, diabetes, hypertension hyperlipidemia. Mild hyperglycemia noted consistent with diabetes history. Right ring finger irrigated and dressed with gauze. Lab Data Lab results reviewed: Yes I reviewed the patient's lab results. Result diagrams: 12/09/17 10:16 12/09/17 10:16 Lab Results 12/09/17 12/09/17 12/09/17 Range/Units 10:16 10:16 10:16 WBC 8.6 (4.0-11.0) th/mm3 RBC 3.73 L (4.00-5.30) mil/mm3 Hgb 11.9 (11.6-15.3) gm/dL Hct 36.2 (35.0-46.0) % MCV 97.0 (80.0-100.0) fL MCH 31.7 (27.0-34.0) pg MCHC 32.7 (32.0-36.0) % RDW 18.8 H (11.6-17.2) % Plt Count 202 (150-450) th/mm3 MPV 8.4 (7.0-11.0) fL Neut % (Auto) 82.6 H (16.0-70.0) % Lymph % (Auto) 6.3 L (9.0-44.0) % [place] % (Auto) 11.0 H (0.0-8.0) % Eos % (Auto) 0.0 (0.0-4.0) % Baso % (Auto) 0.1 (0.0-2.0) % Neut # (Auto) 7.1 (1.8-7.7) th/mm3 Lymph # (Auto) 0.5 L (1.0-4.8) th/mm3 [place] # (Auto) 0.9 (0.0-0.9) th/mm3 Eos # (Auto) 0.0 (0.0-0.4) th/mm3 Baso # (Auto) 0.0 (0.0-0.2) th/mm3 WBC Differential . Differential Comment Auto diff final PT 10.3 (9.8-11.6) sec INR 1.0 Ratio APTT 27.5 (24.3-30.1) sec Sodium 138 (136-145) meq/L Potassium 4.8 D (3.5-5.1) meq/L Chloride 104 (98-107) meq/L Carbon Dioxide 24.0 (21.0-32.0) meq/L Anion Gap 10 (5-15) meq/L BUN 55 H (7-18) mg/dL Creatinine 1.61 H (0.50-1.00) mg/dL Estimated GFR 32 L (>89) mL/min Random Glucose 259 H D (74-106) mg/dL Calcium 9.4 (8.5-10.1) mg/dL Troponin I Less than 0.02 L (0.02-0.05) ng/mL Digoxin 0.8 (0.8-2.0) ng/mL Imaging Data Radiologist's impression: Chest CTA 12/09/17 10:09 CONCLUSION: 1. No evidence of PE on this exam. No airspace consolidation. Chest X-Ray 12/09/17 10:09 CONCLUSION: Negative examination. Hand X-Ray 12/09/17 10:11 CONCLUSION: Negative examination ECG Data EKG Prior to Arrival: Yes Attestation: I personally reviewed and interpreted this ECG as follows: Prior ECG tracings: available for review Interpretation: EKG shows A. fib rhythm, which has been seen before, rate 68, nonspecific ST changes multiple leads appear similar to prior Discharge Plan Discharge Disposition Patient Disposition: 30 Still Patient Physicians Team ED Provider: Coy Stevens Primary Care Provider: Darius Reynoso Rxs /Orders / Referrals /Forms Prescriptions: No Action aspirin 325 mg Tablet 325 mg PO DAILY RF: 0 glipizide 2.5 mg Tablet Extended Release 24hr 2.5 mg PO DAILY RF: 0 atenolol 50 mg Tablet 50 mg PO DAILY RF: 0 Jardiance 10 mg PO DAILY RF: 0 Discharge Instructions Patient Printed Instructions: Chest Pain (ED) Discharge Interventions Interventions: Vital Signs Last Done: 12/09/17 10:04 Status ED Status: Admitted Observation Patient
--- NOTE | 2017-12-09 11:25 | CT ---
EXAM DATE: 12/09/2017 11:17 AM EDT AGE/SEX: 67 years / Female INDICATIONS: Chest pain since last night. CLINICAL DATA: This is the patient's initial encounter. Patient reports that signs and symptoms have been present for 1 day and indicates a pain score of 7/10. MEDICAL/SURGICAL HISTORY: Carcinoma, ovarian. Chronic obstructive pulmonary disease. Hypertension . . Watchman's device RADIATION DOSE: 17.44 CTDI (mGy) COMPARISON: POI, CT CHEST W/O CONTRAST, 12/23/2016. C, CT PULMONARY ANGIOGRAM, 05/25/2015. [facility] [place]09/2017. . TECHNIQUE: Volumetric scanning was performed using a multi-row detector CT scanner during bolus infu edna of 70 ml Omnipaque 350 (iohexol) nonionic water-soluble contrast as a single exam dose. The alex a was post processed with a variety of visualization algorithms including full volume maximum intensi ty projection and sliding thin slab reformation. Using automated exposure control and adjustment of t he mA and/or kV according to patient size, radiation dose was kept as low as reasonably achievable to obtain optimal diagnostic quality images. DICOM format image data is available electronically for r eview and comparison. FINDINGS: Pulmonary Arteries: No filling defects are seen in the pulmonary arteries out to the subsegmental ve ssels. The left and right pulmonary arteries are normal in diameter. There are areas of beam hardeni ng artifact, however, no convincing evidence of emboli. Lung: No infiltrates seen. Respiratory artifact is seen throughout the lung bases. Effusion: None. Mediastinum: No evidence of mediastinal or hilar adenopathy. Right-sided central line. Other: The axilla is unremarkable. CONCLUSION: 1. No evidence of PE on this exam. No airspace consolidation. Electronically signed by: Sabiha Avila MD 12/09/2017 11:24 AM EDT
[2017-12-09] MEDS ORDERED: Acetaminophen 500 MG Tablet PO PRN (11:55)
[2017-12-09] MEDS ORDERED: ALPRAZolam 0.25 MG Tablet PO PRN (11:55)
[2017-12-09] MEDS ORDERED: Temazepam 15 MG Capsule PO PRN (11:55)
[2017-12-09] MEDS ORDERED: Morphine Inj 4 MG/ML Vial IV.PUSH PRN (11:55)
[2017-12-09] MEDS ORDERED: Tetanus/Diphtheria Toxoid Adult Vaccine Inj 0.5 ML Vial IM ONE (12:30)
--- NOTE | 2017-12-09 13:40 | ECG ---
Date Performed: 12/09/2017 Time Performed: 10:04:53 PTAGE: 67 years EKG: Sinus rhythm BORDERLINE LEFT AXIS DEVIATION MODERATE INTRAVENTRICULAR CONDUCTION DELAY NONSPECIFIC T-WAVE ABNORMA LITY BORDERLINE ECG Since the PREVIOUS TRACING , no significant change noted PREVIOUS TRACIN09/27/2017 16.19 DOCTOR: Adeline Alberts Interpretating Date/Time 12/09/2017 13:40:25
--- NOTE | 2017-12-09 14:02 | P.HPCA ---
History of Present Illness Primary Care Physician: Darius Reynoso MD Chief Complaint: chest pain History of Present Illness: 67 year old female with history of diabetes, afib with watchman appendage placed and current ovarian cancer presents to ER for further evaluation of chest pain. Onset last evening. Location generalized chest. Characterized as "fluttering" and "just there discomfort." No radiation. Discomfort resolved last evening. Duration 2 hours. No associated symptoms of nausea, vomiting, dyspnea, or diaphoresis. No precipitating or relieving factors. State she actually came to ER for right finger injury last night, states he told the ER MD about chest pain during interview. No current chest discomfort. Endorses frequent similar chest discomfort for years with multiple cardiac testing completed all reported to be normal. Follows with Dr. Dockery. Endorses recent nuclear cardiac testing this year prior to Watchman appendage placed in September 2017. Current cancer, received chemotherapy yesterday for reoccurrence of ovarian cancer. Restarted treatments August 2017 3 weeks/monthly. Recently recovered from upper respiratory illness with antibiotics, otherwise has been in her general state of health. Past cardiac testing Follow with Dr. Dockery. Reports recent normal nuclear cardiac testing in spring 2017. Multiple nuclear testing noted in records without ischemia. 09/20/17 Watchman appendage placed by Dr. Rowell [facility] 07/06/06 cardiac catheterization (Dr Harvey) conclusions-normal coronary arteries. - Diagnosis (1) Chest pain, atypical (2) Atrial fib/flutter, transient Review of Systems All other systems reviewed negative except as stated in HPI PMFSH - History History Provided By: Patient - Medical History Medical History: Medical History (Last Reviewed 12/09/17 @ 16:21 by GHAZALA London) Atrial fibrillation CKD (chronic kidney disease) COPD (chronic obstructive pulmonary disease) Diabetes HTN (hypertension) Ovarian cancer - Tobacco History Second Hand Smoke Exposure: No Tobacco Use In Past 30 Days: No Smoking Status: Former smoker - Alcohol History How Often Do You Have a Drink Containing Alcohol: Never - Travel History Recent Travel in the [place] Within the Last 8 Weeks: No Recent Travel Out of the Country Within the Last 8 Weeks: No - Immunization History Tetanus Immunization: Unsure Hx Influenza Vaccine This Season: No Medications and Allergies Active Medications: Active Medications Acetaminophen (Tylenol) 500 mg PO Q4H PRN PRN Reason: HEADACHE Hydrocodone Bitart/Acetaminophen ([place] 7.5/325) 1 tab PO Q4H PRN PRN Reason: PAIN SCALE 1 TO 7 Last Admin: 12/09/17 12:32 Dose: 1 tab Alprazolam (Xanax) 0.25 mg PO Q8H PRN PRN Reason: ANXIETY Last Admin: 12/09/17 12:32 Dose: 0.25 mg Morphine Sulfate (Morphine Inj) 2 mg IV.PUSH Q4H PRN PRN Reason: PAIN SCALE 8 TO 10 Ondansetron HCl (Zofran Inj) 4 mg IV.PUSH Q6H PRN PRN Reason: NAUSEA Sodium Chloride (Ns Flush) 2 ml IV.FLUSH UNSCH PRN PRN Reason: FLUSH AFTER USING IV ACCESS Sodium Chloride (Ns Flush) 2 ml IV.FLUSH PRN PRN PRN Reason: FLUSH AFTER USING IV ACCESS Sodium Chloride (Ns Flush) 2 ml IV.FLUSH BID JESSY Temazepam (Restoril) 15 mg PO HS PRN PRN Reason: INSOMNIA Allergies Allergy/AdvReac Type Severity Reaction Status Date / Time amoxicillin Allergy Severe Ulcers Verified 12/09/17 10:15 azithromycin Allergy Severe Hives Verified 12/09/17 10:15 cat dander Allergy Severe cough, Verified 12/09/17 10:15 itching clavulanic acid Allergy Severe Ulcers Verified 12/09/17 10:15 mesalamine Allergy Severe Hives Verified 12/09/17 10:15 paclitaxel Allergy Severe Headache Verified 12/09/17 10:15 trazodone Allergy Intermediate Generalized Verified 12/09/17 10:15 Rash Home Medications Medication Instructions Recorded Confirmed Type Jardiance 10 mg PO DAILY 12/09/17 12/09/17 History albuterol sulfate [Ventolin HFA] 2 puff INHALATION Q4H PRN 12/09/17 12/09/17 History aspirin 325 mg PO DAILY 12/09/17 12/09/17 History atenolol 50 mg PO DAILY 12/09/17 12/09/17 History bupropion HCl 100 mg PO BID 12/09/17 12/09/17 History glipizide 2.5 mg PO DAILY 12/09/17 12/09/17 History Exam Vital signs: Vital Signs 12/09/17 09:58 12/09/17 10:04 12/09/17 10:28 Temperature 99.0 F Pulse Rate 70 68 Respiratory Rate 20 19 Blood Pressure 145/77 H Pulse Oximetry 98 98 Intake & Output 12/08/17 12/09/17 12/09/17 18:59 06:59 18:59 Weight 90.718 kg Results 12/09/17 10:16 12/09/17 10:16 Cardiac Enzymes 12/09/17 Range/Units 10:16 Troponin I Less than 0.02 L (0.02-0.05) ng/mL Coagulation 12/09/17 Range/Units 10:16 PT 10.3 (9.8-11.6) sec APTT 27.5 (24.3-30.1) sec CBC 12/09/17 Range/Units 10:16 WBC 8.6 (4.0-11.0) th/mm3 RBC 3.73 L (4.00-5.30) mil/mm3 Hgb 11.9 (11.6-15.3) gm/dL Hct 36.2 (35.0-46.0) % Plt Count 202 (150-450) th/mm3 Neut # (Auto) 7.1 (1.8-7.7) th/mm3 Lymph # (Auto) 0.5 L (1.0-4.8) th/mm3 [place] # (Auto) 0.9 (0.0-0.9) th/mm3 Eos # (Auto) 0.0 (0.0-0.4) th/mm3 Baso # (Auto) 0.0 (0.0-0.2) th/mm3 Comprehensive Metabolic Panel 12/09/17 Range/Units 10:16 Sodium 138 (136-145) meq/L Potassium 4.8 D (3.5-5.1) meq/L Chloride 104 (98-107) meq/L Carbon Dioxide 24.0 (21.0-32.0) meq/L BUN 55 H (7-18) mg/dL Creatinine 1.61 H (0.50-1.00) mg/dL Calcium 9.4 (8.5-10.1) mg/dL Intake and Output 12/08/17 12/09/17 12/09/17 22:59 06:59 14:59 Other: Weight 90.718 kg Patient Weight 12/10/17 06:59 Weight 90.718 kg EKG interpretations - EKG EKG results cardiology: sinus rhythm, normal axis, normal QRS, normal ST/T Caprini VTE Risk Assessment Caprini VTE Risk Assessment: Moderate/High Risk (score >= 2) Caprini Risk Assessment Model: Point Value = 1 Point Value = 2 Point Value = 3 Point Value = 5 Age 41-60 Minor surgery BMI > 25 kg/m2 Swollen legs Varicose veins or History of unexplained or recurrent spontaneous Oral contraceptives or hormone replacement Sepsis (< 1 month) Serious lung disease, including pneumonia (< 1 month) Abnormal pulmonary function Acute myocardial infarction Congestive heart failure (< 1 month) History of inflammatory bowel disease Medical patient at bed rest Age 61-74 Arthroscopic surgery Major open surgery (> 45 min) Laparoscopic surgery (> 45 min) Malignancy Confined to bed (> 72 hours) Immobilizing plaster cast Central venous access Age >= 75 History of VTE Family history of VTE Factor V Leiden Prothrombin [id number] Lupus anticoagulant Anticardiolipin antibodies Elevated serum homocysteine Heparin-induced thrombocytopenia Other congenital or acquired thrombophilia Stroke (< 1 month) Elective arthroplasty Hip, pelvis, or leg fracture Acute spinal cord injury (< 1 month) Prophylaxis Regimen: Total Risk Factor Score Risk Level Prophylaxis Regimen 0-1 Low Early ambulation 2 Moderate Order ONE of the following: *Sequential Compression Device (SCD) *Heparin 5000 units SQ BID 3-4 Higher Order ONE of the following medications: *Heparin 5000 units SQ TID *Enoxaparin/Lovenox 40 mg SQ daily (WT < 150 kg, CrCl > 30 mL/min) *Enoxaparin/Lovenox 30 mg SQ daily (WT < 150 kg, CrCl > 10-29 mL/min) *Enoxaparin/Lovenox 30 mg SQ BID (WT < 150 kg, CrCl > 30 mL/min) AND/OR *Sequential Compression Device (SCD) 5 or more Highest Order ONE of the following medications: *Heparin 5000 units SQ TID (Preferred with Epidurals) *Enoxaparin/Lovenox 40 mg SQ daily (WT < 150 kg, CrCl > 30 mL/min) *Enoxaparin/Lovenox 30 mg SQ daily (WT < 150 kg, CrCl > 10-29 mL/min) *Enoxaparin/Lovenox 30 mg SQ BID (WT < 150 kg, CrCl > 30 mL/min) AND *Sequential Compression Device (SCD) Assessment and Plan - Assessment (1) Chest pain, atypical Code(s): R07.89 - Other chest pain Status: Acute Plan: Admitted to chest pain center. Seen and evaluated by Dr. Da Silva. Recently reports normal Lexiscan in spring of this year. Follows closely with Dr. Dockery. Normal coronary arteries documented in 2006. Endorses years of similar chest discomfort and cause never identified and states cardiac reasons always dismissed. Reports multiple cardiac testing completed for similar discomfort however cardiac sources have always been ruled out. No further cardiac testing indicated. Discharge home this afternoon. Follow up with primary care provider, keep up coming appointment with Dr. Dockery. EKG is normal sinus, no atrial fib on EKG. (2) Atrial fib/flutter, transient Status: Chronic Plan: Normal sinus rhythm. Continue home medications as previous instructed.
[2017-12-09 14:06] LABS: Creatine Kinase 17 U/L (26-192)
--- NOTE | 2017-12-10 08:57 | ECG ---
Date Performed: 12/09/2017 Time Performed: 13:23:45 PTAGE: 67 years EKG: SINUS BRADYCARDIA POSSIBLE ANTERIOR MYOCARDIAL INFARCTION ABNORMAL ECG Since the PREVIOUS TRACING , no significant change noted PREVIOUS TRACIN12/09/2017 10.04 DOCTOR: Adeline Alberts Interpretating Date/Time 12/10/2017 08:55:56
== END 2017-12-09 16:01 | disposition home or self-care (01) ==
LOC: NEDA 09:54 → NEPE 09:54 → NEDA 16:00